=== PATIENT | male | born 1945 | race Caucasian/White ===

== ENCOUNTER 2017-12-15 10:09 | Inpatient (IN) | payer MEDICARE, MEDICAID ==
[2017-12-15] MEDS ORDERED: Adenosine* 3 MG/ML VIAL ONE (10:41)
[2017-12-15 10:43] LABS: ABS Basophils 0.1 10^3/ul (0-0.2); ABS Eosinophils 0.1 10^3/ul (0-0.6); ABS Lymphocytes 1.1 10^3/ul (1.0-4.8); ABS Monocytes 0.7 10^3/ul (0-0.8); ABS Neutrophils 8.7 10^3/ul (1.5-7.7); ABS Nucleated RBC 0 10^3/ul; Eosinophil % 1.1 % (0-6); Hematocrit 22 % (42-52); Hemoglobin 7.2 g/dl (14.0-18.0); Lymphocyte % 10.3 % (25-47); Mean Corpuscular HGB Conc 33 g/dl (31-36); Mean Corpuscular Hemoglobin 28 pg (27-31); Mean Corpuscular Volume 85 fL (80-94); Mean Platelet Volume 9.5 um3 (7.4-10.4); Nucleated Red Blood Cells % 0.1; Platelet Count 314 10^3/ul (150-450); Red Blood Count 2.57 10^6/ul (4.0-5.4); Red Cell Distribution Width 15 % (10.5-15); White Blood Count 10.7 10^3/ul (3.5-10.8)
[2017-12-15 10:48] LABS: INR 1.08 (0.77-1.02)
[2017-12-15] MEDS ORDERED: NS 0.9% 1000 ML* 1,000 ML IV ONE ×2 (10:56→11:58)
[2017-12-15] MEDS ORDERED: Levofloxacin 750 MG IVPREMIX(* 750 MG/150 ML BAG IVPB ONE (10:56)
--- NOTE | 2017-12-15 10:58 | RAD ---
HISTORY: Shortness of breath COMPARISONS: None VIEWS: 1: frontal portable view of the chest at 10:41 AM. FINDINGS: LINES AND TUBES: None. CARDIOMEDIASTINAL SILHOUETTE: The cardiomediastinal silhouette is normal for portable technique. PLEURA: There is a small right pleural effusion versus chronic pleural thickening. LUNG PARENCHYMA: There is hyperinflation. There is volume loss of the right lung. ABDOMEN: The upper abdomen is clear. There is no subphrenic gas. BONES AND SOFT TISSUES: No bone or soft tissue abnormalities are noted. IMPRESSION: 1. VOLUME LOSS OF THE RIGHT LUNG WHICH MAY BE POSTSURGICAL. RECOMMEND COMPARISON TO PREVIOUS IMAGING IF AVAILABLE. 2. SMALL RIGHT PLEURAL EFFUSION VERSUS CHRONIC PLEURAL THICKENING.
[2017-12-15 11:08] LABS: EGFR Non-African American 47.3 (>60)
[2017-12-15] MEDS ORDERED: Diltiazem DRIP* 100 MG/100 ML ADDV.BAG IVPB ONE (12:40)
[2017-12-15] MEDS ORDERED: Diltiazem IV* 5 MG/ML 5 ML VIAL (for loading dose/IV Push) (25 MG) IV SLOW PU ONE (12:40)
[2017-12-15] MEDS ORDERED: Adenosine* 3 MG/ML VIAL IV PUSH ONE (12:43)
[2017-12-15] MEDS ORDERED: Pantoprazole IV* 40 MG IV ONE (12:57)
[2017-12-15] MEDS ORDERED: Ondansetron INJ* 2 MG/ML VIAL IV PRN (12:57)
[2017-12-15] MEDS ORDERED: Acetaminophen TAB* 325 MG PO PRN (12:57)
[2017-12-15] MEDS ORDERED: Pantoprazole IV* 80 MG in NS 0.9% 100 ML* 100 ML IVPB SCH (13:00)
[2017-12-15] MEDS ORDERED: Diltiazem IV VIAL* 125 MG/25 ML VIAL IV ONE (13:00)
[2017-12-15] MEDS ORDERED: Albuterol HFA INHALER* 8 gm MDI INH PRN (13:02)
[2017-12-15] MEDS ORDERED: Pantoprazole IV* 40 MG ONE (13:27)
[2017-12-15] MEDS ORDERED: NS 0.9% 1000 ML* 1,000 ML IV SCH (13:30)
--- NOTE | 2017-12-15 13:49 | CONSULT ---
Consult Consult: Consultation Note Critical Care Requesting Physician: Abraham Gibbs NP Reason for consult: GI hemorrhage Limitations in history/physical: none Date of consult: 12/15/2017 HPI: 72y M pmhx of HLD, HTN; presents to ER for 1 week of shortness of breath on exertion, cough+. No chest pain/dizziness/syncope. No abd pain/n/v. States he has been having dark stools+ 1-2 days only. No sick contacts. No recent travel. EMS brought patient to ER, found to be tachycardic 155, given adenosine and noted to be in afib/flutter underlying. RR 20, BP 100-110 systolic, sat 100 % on RA, tmax 97.3. Started on Cardizem infusion for rate control. Lab work demonstrated acute anemia of 7, previous 13 in July 2017. 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 He does not know of a lung disease he is diagnosed with and was told his heart is like a "sponge" and moving abnormal so he must be on blood thinners ( months back). He does take inhalers and has baseline shortness of breath all the time but this time shortness of breath worsened. He takes asa only, occassional motrin during the month for pain. Started on PPI infusion in ER. currently awake, feels okay. recieved IVF 2L in ER. in Aflutter 140s on cardizem infusion 5mg/hr. on D5w infusion. ED/floor Course: as above ROS: negative except for pertinent positives mentioned above. PMHx: HTN, HLD PSHx: none Family History: Cardiac disease Social History: Alcohol-stopped drinking 10-20 years back, Smoking-former smoker for 50+ years <1ppd, stopped 5-7 yrs back, Drug use-none; lives with . Allergies: Allergies Allergy/AdvReac Type Severity Reaction Status Date / Time No Known Allergies Allergy Mild See Comment Verified 12/15/17 10:23 Home Medications: Albuterol HFA INHALER* [Ventolin HFA Inhaler*] 2 puff INH Q6H PRN 12/15/17 [ History Confirmed 12/15/17] Albuterol/Ipratropium RESP(NF) [Combivent Respimat(NF)] 1 puff INH QID 12/15/17 [History Confirmed 12/15/17] Budesonide/Formote 160/4.5(NF) [Symbicort 160/4.5 (NF)] 2 puff INH BID 12/15/17 [History Confirmed 12/15/17] Diltiazem CD CAP* [Cardizem CD CAP*] 180 mg PO DAILY 12/15/17 [History Confirmed 12/15/17] Gemfibrozil TAB* [Lopid TAB*] 600 mg PO BID 12/15/17 [History Confirmed ] Tele: aflutter, tachycardic Vitals: Vital Signs Temp 98 F 12/15/17 14:03 Pulse 140 12/15/17 14:03 Resp 24 12/15/17 14:03 BP 106/70 12/15/17 14:03 Pulse Ox 100 12/15/17 14:03 Intake & Output 12/14/17 12/15/17 12/15/17 18:59 06:59 18:59 Intake Total 2150 Balance 2150 Weight 190 lb Intake: IV Fluids 2150 O2/Vent: NC 2L Infusions: d5w 125cc/hour, protonix 8mg/hr Current Medications: Acetaminophen (Tylenol Tab*) 650 mg PO Q4H PRN PRN Reason: FEVER/PAIN Albuterol (Ventolin 2.5 Mg/3 Ml Neb.Aracelis*) 2.5 mg INH Q2H PRN PRN Reason: SOB/WHEEZING Albuterol (Ventolin Hfa Inhaler*) 2 puff INH Q6H PRN PRN Reason: SOB/WHEEZING Albuterol/Ipratropium (Duoneb (Albuterol 2.5 Mg/Ipratropium 0.5 Mg)) 1 neb INH Q6H JEANNE Diltiazem HCl (Cardizem Iv Advan*) 100 mg in 100 mls @ 5 mls/hr IVPB ED ONCE ONE PRN Reason: 5 MG/HR Stop: 12/16/17 08:39 Last Admin: 12/15/17 13:18 Dose: 5 mls/hr Pantoprazole Sodium 80 mg/ (Sodium Chloride) 100 mls @ 10 mls/hr IVPB Q10H JEANNE Last Admin: 04/20/18 14:15 Dose: 10 mls/hr Diltiazem HCl (Cardizem Iv Advan*) 100 mg in 100 mls @ 5 mls/hr IVPB .PER PARAMETERS JEANNE; 5 MG/HR PRN Reason: Protocol Dextrose (D5w 1000 Ml Bag*) 1,000 mls @ 125 mls/hr IV PER RATE JEANNE Last Admin: 12/15/17 14:06 Dose: 125 mls/hr Mometasone Furoate/Formoterol Fumar (Dulera 200/5 Mdi*) 2 puff INH BID JEANNE PRN Reason: Protocol Ondansetron HCl (Zofran Inj*) 4 mg IV Q6H PRN PRN Reason: NAUSEA Physical Exam: General: awake, alert, no distress, no diaphoresis Head: normocephalic, atraumatic HEENT: +Pallor, no icterus, DRY mucous membranes Neck: soft, supple, no jvd, no stridor CVS: tachycardic, regular, systolic murmur 3/5 in aortic area Resp: bilateral air entry, no rhales, no wheeze, no rhonchi, no acc muscle use Abdomen: soft, nontender, nondistended, bowel sounds present Ext: pulses+, warm, no edema Skin: intact, chronic changes in LE, dry+ Neuro: awake, alert, orientedx3, moving all extremities, no gross focal deficit Labs: Laboratory Results - last 24 hr 12/15/17 12/15/17 12/15/17 10:30 10:30 10:30 WBC 10.7 RBC 2.57 L Hgb 7.2 L Hct 22 L MCV 85 MCH 28 MCHC 33 RDW 15 Plt Count 314 MPV 9.5 Neut % (Auto) 81.4 Lymph % (Auto) 10.3 L [place] % (Auto) 6.7 Eos % (Auto) 1.1 Baso % (Auto) 0.5 Absolute Neuts (auto) 8.7 H Absolute Lymphs (auto) 1.1 Absolute Monos (auto) 0.7 Absolute Eos (auto) 0.1 Absolute Basos (auto) 0.1 Absolute Nucleated RBC 0 Nucleated RBC % 0.1 INR (Anticoag Therapy) 1.08 H Sodium 145 Potassium 4.2 Chloride 112 H Carbon Dioxide 24 Anion Gap 9 BUN 48 H Creatinine 1.46 H Est GFR ( Amer) 60.9 Est GFR (Non-Af Amer) 47.3 BUN/Creatinine Ratio 32.9 H Glucose 120 H Lactic Acid Calcium 8.7 Total Bilirubin 0.70 AST 16 ALT 10 Alkaline Phosphatase 33 L Troponin I 0.03 C-Reactive Protein 49.45 H B-Natriuretic Peptide Total Protein 6.0 L Albumin 2.9 L Globulin 3.1 Albumin/Globulin Ratio 0.9 L Blood Type Antibody Screen Crossmatch 12/15/17 12/15/17 12/15/17 10:30 10:30 10:30 WBC RBC Hgb Hct MCV MCH MCHC RDW Plt Count MPV Neut % (Auto) Lymph % (Auto) [place] % (Auto) Eos % (Auto) Baso % (Auto) Absolute Neuts (auto) Absolute Lymphs (auto) Absolute Monos (auto) Absolute Eos (auto) Absolute Basos (auto) Absolute Nucleated RBC Nucleated RBC % INR (Anticoag Therapy) Sodium Potassium Chloride Carbon Dioxide Anion Gap BUN Creatinine Est GFR ( Amer) Est GFR (Non-Af Amer) BUN/Creatinine Ratio Glucose Lactic Acid 1.9 Calcium Total Bilirubin AST ALT Alkaline Phosphatase Troponin I C-Reactive Protein B-Natriuretic Peptide 106 H Total Protein Albumin Globulin Albumin/Globulin Ratio Blood Type A Positive Antibody Screen Negative Crossmatch See Detail Imaging: cxr 12/15 - no clear infiltrate, hyperinflated? smaller right lung volume Assessment: 72y M pmhx of HLD, HTN; presents to ER for 1 week of shortness of breath on exertion, cough+. Chronically has SOB otherwise. Stopped taking Xarelto AC months back, takes ASA only. Noted dark/black stools for 1-2 days only. In ER, tachycardic/aflutter and acute anemia. -Upper GI hemorrhage -Acute blood loss anemia -Atrial flutter with rapid ventricular rate -Respiratory distress -Hypernatremia -SHY Plan: Neuro- stable. CVS- Aflutter, tachycardic; incr cardizem to 10mg/hr, will likely rebolus cardizem again. Will bridge to PO cardizem once more controlled. No AC due to ongoing GI hemorrhage. Trend h/H. To be transfused 2 PRBC today. INR okay, plt okay. hold asa further. Obtain TTE to eval systolic murmur and for LV function/ valve abnormality/resp distress. Euvolemic, no edema. Resp- on 2L NC, no distress at rest. Likely combination of diastolic dysfunction from rapid flutter + acute anemia + valvular heart disease? + chronic obst disease? No lasix indicated at this time. No wheezing. Past smoker , so may have some component of obstructive lung disease also contributing to this. Bronchodilators PRN. CXR clear of infiltrate. ID- afebrile. wbc okay. no abx indicated, no infiltrate on cxr. no clinical infection noted. GI- suspect upper GI bleed, more recent. Has been off AC. hold ASA. PRBC transfusion. PPI infusion. GI consult called for possible EGD. NPO now. No nsaids Renal- Cr elevated, hypernatremia. clinically dry. s/p 2L NS in ER. on d5w now, dec to 75cc/hour. Making urine. no acidosis, K normal. No ford. Heme- acute blood loss anemia, suspect GI etiology. PRBC 2 units now. INR 1, no clear coagulopathy, patient states he is off AC for months, confirmed no Rx refill either. Plt count 300+, on asa daily. Keep hg >8 given underlying cardiac and pulmonary disease and symptomatic under <8. Endo- fingerstick as needed. check hba1c, tsh. Musculsk- bedrest Wounds- none Nutrition- NPO DVT prophylaxis: SCDs, no chemical proph GI prophylaxis: PPI infusion Central Line: no Arterial Line: no Ford Cathetor: no Disposition: ICU Code Status: full code Total Critical Care time is 45 minutes, excluding procedures/teaching Dennis Koroma MD Filter Plant Supervisor (Electronically Signed)
[2017-12-15] MEDS ORDERED: D5W 1000 ML BAG* 1,000 ML IV SCH (14:00)
[2017-12-15] MEDS ORDERED: Diltiazem DRIP* 100 MG/100 ML ADDV.BAG IVPB SCH (14:00)
--- NOTE | 2017-12-15 15:30 | HP ---
CC: Gerardo Garza; Dr. Vega* HISTORY AND PHYSICAL: DATE OF ADMISSION: 12/15/17 PRIMARY CARE PROVIDER: Gerardo Garza ATTENDING PHYSICIAN WHILE IN THE HOSPITAL: Josiah Hale MD* (report dictated by Vera Gibbs NP). CHIEF COMPLAINT: 1. Shortness of breath. 2. Not feeling well. HISTORY OF PRESENT ILLNESS: Mr. Burrows is a 72-year-old male patient. He does carry a history of AFib, COPD, hypertension and hyperlipidemia. He comes into our ER today. He says the last 3 to 4 days, he has had progressive worsening shortness of breath, dyspnea on exertion, feeling fatigued, feeling run down. He has had a cough that has been nonproductive. He has had no fever that he knows of. He did say that he had tarry stool approximately 3 to 4 days ago as well. He denied any vomiting of coffee-ground emesis. He denied any abdominal discomfort. Denies any chest pain. He says that he always sleeps upright. He denied having any chest pain. He did state that he felt like his heart was racing. He is concerned because his breathing was not getting any better, so he decided to come into the emergency department today to be evaluated. While here, it was noted that his heart rate was in the 150. He was given adenosine and he appeared to be in A- flutter. In discussion with him, he does state that he started taking aspirin the last couple of days. He says he takes ibuprofen or Motrin, maybe 1 to 3 times a month and he says he was at one point on a blood thinner, he does not remember the name of it and he says he believes he stopped it 4 to 5 months ago; however in discussion with his PCP, it is unclear if this was the case or not. There was concern because of the fact that his H and H had dropped significantly since his last H and H and we were asked to evaluate for admission. PAST MEDICAL HISTORY: Significant for: 1. AFib. 2. COPD. 3. Hypertension. 4. Hyperlipidemia. PAST SURGICAL HISTORY: Denied. HOME MEDICATIONS: Include, 1. Symbicort 2 puffs inhale b.i.d. 2. Combivent 1 puff inhale four times a day. 3. Ventolin 2 puffs inhale every 6 hours as needed. 4. Lopid 600 mg p.o. twice a day. 5. Cardizem CD 180 mg p.o. daily. ALLERGIES: No known drug allergies. FAMILY HISTORY: Mother had a history of CVA and diabetes. Father's history is unknown. SOCIAL HISTORY: He was a former smoker, he quit 2 to 3 years ago. He does not drink alcohol, is a former drinker though. He lives with his , surrogate decision maker is his . REVIEW OF SYSTEMS: There is no documented fever. He denied any significant weight change. There is no double vision. He denies having any ear discharge. He denies having any rhinorrhea. There was no sore throat. No thyroid enlargement. Denies having any chest pain. There is no orthopnea. He does admit to dyspnea on exertion. There is no chest pain. There is no abdominal pain. He denies any nausea or vomiting. No diarrhea. No dysuria. No frequency. No seizure. No loss of consciousness. No pruritus and no skin ulcerations. Review of 14 systems completed, all others negative. PHYSICAL EXAMINATION GENERAL: Mr. Burrows is a 72-year-old male patient. He appears to be chronically ill appearing, he is sitting in the ED stretcher. He does not appear to be in any acute distress. VITAL SIGNS: Blood pressure 122/79, pulse 150, respirations were 20, O2 sat 96% , temperature 97.3. HEENT: Head: Atraumatic, normocephalic. Eyes: EOMs are intact. Sclerae anicteric, it was pale. Throat: Oral mucosa appears to be dry. No oropharyngeal erythema. NECK: Supple. LUNGS: Clear to auscultation bilaterally. No wheezes, rales or rhonchi. CV: Heart sounds S1, S2. He is in a regular rate and rhythm. No murmurs, rubs or gallops. ABDOMEN: Soft, flat and nontender. Bowel sounds present. EXTREMITIES: Pulses were 2+ throughout. He is moving all 4 extremities with 5/ 5 strength. NEUROLOGIC: He is awake. He is alert. He is oriented x3. Speech is clear. Tongue is midline. Cork Insulation Setter are equal. He had no gross focal deficits. His skin is intact. DIAGNOSTIC STUDIES/LAB DATA: WBC 10.7, RBC 2.57, hemoglobin 7.2, hematocrit 22. His last hemoglobin was 13.4, platelet count was 314. INR was 1.08. Sodium 145, potassium 4.2, chloride 112, bicarb 24, BUN 48, creatinine 1.46, glucose 120, lactic 1.9, calcium 8.7. Total bili 0.7, AST 16, ALT 10, alk phos 33. Troponin 0.03. CRP of 49. Albumin of 2.9. Urine pending. Chest x-ray shows small volume loss of right lung which may be postsurgical, recommend comparison if previous imaging is available. Small right pleural effusion versus chronic pleural thickening. EKG appears to be a 2:1 A-flutter with a PVC, left bundle-branch block, I do not have a previous EKG for comparison, rate of 150. Again, he did get adenosine when we slowed him down. It did appear that he had an A-flutter. Old medical records were reviewed. BNP 106. Again, EKG showed what appeared to be 2:1 A-flutter, rate of 150, old medical records reviewed. ASSESSMENT AND PLAN: Mr. Burrows is a 72-year-old male patient with complex medical history, coming into the ED today with complaints of shortness of breath , not feeling well, fatigued. On evaluation, he was found to have a significant drop in his hemoglobin, about 6 point and also in addition, on rectal exam found to have tarry stools. He will be admitted under inpatient status for: 1. Gastrointestinal bleed. I suspect he has a gastrointestinal bleed, it is unclear when he last took Xarelto. He says he has not taken it in 4 to 5 months per the direction of his PCP, although there is no documentation of that according to the staff at his office. He was just seen on of this month at Dr. Garza's office. We are going to try to get those records. I am going to put the patient on PPI drip, place him in the ICU, frequent H and Hs have been ordered. I have asked for 2 IV on this patient. In addition to this, we are going to give him 2 units of blood and I did touch base with GI who will be evaluating him today. Blood pressure is stable but I would like to get a better rate control. I think it is probably the rates being driven by his anemia, so I think with 2 units of blood, hopefully we can get that better controlled and then we can stabilize him a little bit better for possible endoscopy. Again GI is following him, he will be placed on clear liquid diet. 2. History of atrial fibrillation/atrial flutter. He is on diltiazem. He has been on a blood thinner at one point. We are going to get record from his primary. I am going to put him on a diltiazem drip in the ICU to try to get the rate better controlled and we will continue to monitor. 3. Chronic obstructive pulmonary disease. Continue his nebs as prescribed. 4. Hypertension, again at this point, he will be on diltiazem drip. 5. Hyperlipidemia. I am holding his Lopid until he stabilized, we can restart this at a later point. 6. Deep venous thrombosis prophylaxis, SCDs have been ordered. 7. Code status, full code. 8. Fluids, electrolytes and nutrition. Clear liquid diet. TIME SPENT: Time spent on admission 60 minutes, greater than half the time spent [id number] with the patient obtaining my history and physical, other half of the time spent going over the plan of care with the patient and implementing plan of care. I did discuss the plan of care with my attending, Dr. Hale, he is in agreement. VERA GIBBS NP [id number]/CPS #: [id number] MTDD
--- NOTE | 2017-12-15 16:20 | ED ---
James Leyva Jennifer, scribed for Jorgito Sanchez MD on 12/15/17 at 1059 . Shortness of Breath - HPI Summary HPI Summary: The patient is a 72 year old male who presents with shortness of breath and cough for one week that worsened today. EMS found the patient wheezing and tachycardic. The patient was given a nebulizer treatment, which improved his breathing - History of Current Complaint Chief Complaint: EDShortnessOfBreath Time Seen by Provider: 12/15/17 10:13 Hx Obtained From: Patient, EMS Onset/Duration: Sudden Onset, Lasting Weeks - 1 week, Worse Since - today Timing: Constant Current Severity: Mild Aggrevating Factors: Nothing Alleviating Factors: Other - Nebulizer Associated Signs & Symptoms: Cough (Nonproductive), Wheezing - Allergy/Home Medications Allergies/Adverse Reactions: Allergies Allergy/AdvReac Type Severity Reaction Status Date / Time No Known Allergies Allergy Mild See Comment Verified 12/15/17 10:23 Home Medications: Home Medications Albuterol HFA INHALER* [Ventolin HFA Inhaler*] 2 puff INH Q6H PRN 12/15/17 [ History Confirmed 12/15/17] Albuterol/Ipratropium RESP(NF) [Combivent Respimat(NF)] 1 puff INH QID 12/15/17 [History Confirmed 12/15/17] Budesonide/Formote 160/4.5(NF) [Symbicort 160/4.5 (NF)] 2 puff INH BID 12/15/17 [History Confirmed 12/15/17] Diltiazem CD CAP* [Cardizem CD CAP*] 180 mg PO DAILY 12/15/17 [History Confirmed 12/15/17] Gemfibrozil TAB* [Lopid TAB*] 600 mg PO BID 12/15/17 [History Confirmed ] PMH/Surg Hx/FS Hx/Imm Hx Endocrine/Hematology History: Denies: Hx Diabetes Cardiovascular History: Reports: Hx Hypercholesterolemia, Hx Hypertension Infectious Disease History: No Infectious Disease History: Denies: Traveled Outside the [place] in Last 30 Days - Family History Known Family History: Positive: Cardiac Disease, Hypertension, Other - Hypercholesterolemia - Social History Alcohol Use: None Substance Use Type: Reports: None Smoking Status (MU): Former Smoker Review of Systems Positive: Other - Tachycardic Positive: Shortness Of Breath, Cough, Other - Wheezing All Other Systems Reviewed And Are Negative: Yes Physical Exam - Summary Physical Exam Summary: Appearance: The patient is well-nourished in no acute distress and in no acute pain. Skin: The skin is warm and dry and skin color reflects adequate perfusion. HEENT: The head is normocephalic and atraumatic. The pupils are equal and reactive. The conjunctivae are clear and without drainage. Nares are patent and without drainage. Mouth reveals moist mucous membranes and the throat is without erythema and exudate. The external ears are intact. The ear canals are patent and without drainage. The tympanic membranes are intact. Neck: the neck is supple with full range of motion and non-tender. There are no carotid bruits. There is JVD and slight HJR. Respiratory: Chest is non-tender. Lungs are clear to auscultation and breath sounds are symmetrical and equal. Cardiovascular: Heart is tachycardic and irregular rhythm. There is no murmur or rub auscultated. There is no peripheral edema and pulses are symmetrical and equal. Abdomen: The abdomen is soft and non-tender. There are normal bowel sounds heard in all four quadrants and there is no organomegaly palpated. Musculoskeletal: There is no back tenderness noted. Extremities are non-tender with full range of motion. There is good capillary refill. There is no peripheral edema or calf tenderness elicited. Neurological: Patient is alert and oriented to person, place and time. The patient has symmetrical motor strength in all four extremities. Cranial nerves are grossly intact. Deep tendon reflexes are symmetrical and equal in all four extremities. Psychiatric: The patient has an appropriate affect and does not exhibit any anxiety or depression. Triage Information Reviewed: Yes Vital Signs On Initial Exam: Initial Vitals Temp Pulse Resp BP Pulse Ox 97.3 F 155 20 107/77 100 12/15/17 10:10 12/15/17 10:10 12/15/17 10:10 12/15/17 10:10 12/15/17 10:10 Vital Signs Reviewed: Yes Diagnostics - Vital Signs Vital Signs Temp Pulse Resp BP Pulse Ox 12/15/17 10:10 97.3 F 155 20 107/77 100 - Laboratory Lab Results: Lab Results 12/15/17 12/15/17 Range/Units 10:30 10:30 WBC 10.7 (3.5-10.8) 10^3/ul RBC 2.57 L (4.0-5.4) 10^6/ul Hgb 7.2 L (14.0-18.0) g/dl Hct 22 L (42-52) % MCV 85 (80-94) fL MCH 28 (27-31) pg MCHC 33 (31-36) g/dl RDW 15 (10.5-15) % Plt Count 314 (150-450) 10^3/ul MPV 9.5 (7.4-10.4) um3 Neut % (Auto) 81.4 (38-83) % Lymph % (Auto) 10.3 L (25-47) % [place] % (Auto) 6.7 (0-7) % Eos % (Auto) 1.1 (0-6) % Baso % (Auto) 0.5 (0-2) % Absolute Neuts (auto) 8.7 H (1.5-7.7) 10^3/ul Absolute Lymphs (auto) 1.1 (1.0-4.8) 10^3/ul Absolute Monos (auto) 0.7 (0-0.8) 10^3/ul Absolute Eos (auto) 0.1 (0-0.6) 10^3/ul Absolute Basos (auto) 0.1 (0-0.2) 10^3/ul Absolute Nucleated RBC 0 10^3/ul Nucleated RBC % 0.1 INR (Anticoag Therapy) 1.08 H (0.77-1.02) Result Diagrams: 12/15/17 10:30 12/15/17 10:30 Lab Statement: Any lab studies that have been ordered have been reviewed, and results considered in the medical decision making process. - Radiology CXR Xray Interpretation: Positive (See Comments) - 1. VOLUME LOSS OF THE RIGHT LUNG WHICH MAY BE POSTSURGICAL. RECOMMEND COMPARISON TO PREVIOUS IMAGING IF AVAILABLE. 2. SMALL RIGHT PLEURAL EFFUSION VERSUS CHRONIC PLEURAL THICKENING. Dr. Sanchez has reviewed this report. Radiology Interpretation Completed By: Radiologist - EKG 10:24 EKG Interpretation: Sinus tachycardic with PVCs vs. atrial flutter with PVCs Course/Dx - Course Course Of Treatment: Mr Brurows presented by EMS with the C/O SOB. He was noted to be tachycardic when they picked him up and had some wheezes. They gave him a neb enroute and he felt much better on arrival here although his HR was still about 150 with fairly frequent ventricular ectopy. His lungs were clear then and he had no JVD although there was a touch of HJR. A CXR showed a possible infiltrate and flat diaphragms without evidence for CHF so we gave him IV NS and Levaquin. This had no effect on his HR although his labs showed evidence of dehydration as well as a new significant anemia. Therefore,, he was given adenosine which revealed that he was in A-flutter with a 2:1 block. He was placed on a cardizeem drip and is being admitted to the ICU. - Diagnoses Provider Diagnoses: Atrial flutter with rapid ventricular response, Severe anemia, Dehydration - Physician Notifications Discussed Care of Patient With: Abraham Gibbs Time Discussed With Above Provider: 12:46 Instructed by Provider To: Admit As Inpatient - Critical Care Time Critical Care Time: 30-74 min - CCT is EXCLUSIVE of separately billable procedures Discharge - Sign-Out/Discharge Documenting (check all that apply): Discharge - Discharge Plan Condition: Good Disposition: ADMITTED TO [facility] - Billing Disposition and Condition Condition: GOOD Disposition: [facility] [place] The documentation as recorded by the James turner Jennifer accurately reflects the service I personally performed and the decisions made by me, Jorgito Sanchez MD.
[2017-12-15 16:22] LABS: Urine Appearance Clear; Urine Blood Negative (Negative); Urine Color Yellow; Urine Ketones Negative (Negative); Urine Protein Negative (Negative); Urine Specific Gravity 1.013 (1.010-1.030); Urine Urobilinogen Positive (Negative)
[2017-12-15] MEDS ORDERED: Albuterol/Ipratropium RESP(NF) MDI (Combivent Respimat) INH SCH (17:00)
[2017-12-15] MEDS: D5W 1000 ML BAG* 1,000 ML IV SCH (17:06)
[2017-12-15] MEDS: Pantoprazole IV* 80 MG in NS 0.9% 250 ML* 250 ML IVPB SCH (17:06)
--- NOTE | 2017-12-15 17:45 | ECHO ---
Patient: OLGA JAUREGUI Rec#: [id number] : 1945 Date: 12/15/2017 Age: 72y Height: 185.42 cm / 73.0 in Weight: 86.18 kg / 189.9 lbs Sex: M BSA: 2.11 Room#: [facility] Admit Date#: 12/15/2017 Type: Inpatient Referring: Dennis Koroma Reading: Jorge Newman MD Corporate Risk Analyst: Alondra Aguilera RDCS Transthoracic Echocardiogram Indication: A-flutter BP: 118/89 HR: 135 Rhythm: A-Flutter Findings History: Former smoker, current GI bleed. Technical Comments: The study is technically difficult. The study is technically limited due to poor acoustic windows. The study was technically limited due to the patient's inability to lay in the left lateral decubitus position. Completed at 1730. Left Ventricle: The left ventricle is not well visualized. The left ventricular chamber size is decreased. Moderate concentric left ventricular hypertrophy is observed. There is normal left ventricular systolic function.Unable to comment on regional wall motion. The estimated ejection fraction is 55-60%. The assessment of diastolic function is non-diagnostic. Left Atrium: The left atrium is moderate to severely dilated. Right Ventricle: The right ventricle is not well visualized. Right Atrium: The right atrium is moderately dilated. Aortic Valve: The aortic valve structure is not well visualized. There is no evidence of aortic regurgitation. There is no evidence of aortic stenosis. Mitral Valve: The mitral valve structure is not well visualized. The mitral valve leaflets are mildly thickened. There is no evidence of mitral regurgitation. Tricuspid Valve: The tricuspid valve structure is not well visualized. There is no evidence of tricuspid valve regurgitation. Pulmonic Valve: The pulmonic valve structure is not well visualized. There is no evidence of pulmonic regurgitation. There is no pulmonic stenosis. Pericardium: There is no significant pericardial effusion. Aorta: The ascending aorta is not well visualized. The aortic arch is not well visualized. The aortic root is not well visualized. Pulmonary Artery: The main pulmonary artery is not well visualized. Venous: The inferior vena cava is dilated. There is an approximate 50% respiratory change in the inferior vena cava dimension. Conclusions The study is technically very difficult. There is normal left ventricular systolic function. The estimated ejection fraction is 55-60%. The left ventricular chamber size is decreased. Moderate concentric left ventricular hypertrophy is observed. The left atrium is moderate to severely dilated. The right atrium is moderately dilated. Functionally benign heart valves on limited imaging. There is no prior echocardiogram available to compare with at this time. Measurements Name Value Normal Range RVIDd (AP) 2D 3.1 cm (0.9 - 2.6) RAd ISD 4CH 5.4 cm (3.4 - 4.9) RA (A4C)W 4.5 cm (2.9 - 4.6) IVSd (2D) 1.7 cm (0.6 - 1) LVPWd (2D) 1.8 cm (0.6 - 1) LVIDd (2D) 2.7 cm (3.6 - 5.4) LVIDs (2D) 1.9 cm - LV FS (2D) 29 % (25 - 45) Aortic Annulus 2.2 cm (1.4 - 2.6) Name Value Normal Range LA ESV SP 4CH (A/L) 81 ml - LA ESV SP 2CH (A/L) 124 ml - LA ESV BP (A/L) 103 ml - LA ESV BP (A/L) index 49 ml/m2 - LA ESV SP 4CH (MOD) 76 ml - LA ESV SP 2CH (MOD) 116 ml - Name Value Normal Range AV Vmax 2 m/sec - AV VTI 29.98 cm - AV peak gradient 16.59 mmHg - AV mean gradient 8.54 mmHg - LVOT Vmax 0.85 m/sec - LVOT VTI 15.64 cm - LVOT peak gradient 2.94 mmHg - LVOT mean gradient 1.65 mmHg - Name Value Normal Range IVC diameter 2.32 cm - Name Value Normal Range PV Vmax 1.9 m/sec -
--- NOTE | 2017-12-15 18:38 | CONS ---
GASTROENTEROLOGY CONSULTATION: DATE OF CONSULT: 12/15/17 PRIMARY CARE PHYSICIAN: Gerardo Garza. HISTORY OF PRESENT ILLNESS: Thank you for asking me to see Mr. Burrows. As you know, he is a 72-year -old male who presented to the emergency room today with progressive shortness of breath and fatigue. Apparently, he has had cough. The patient states that he did have a black stool 3 to 4 days ago. He does take aspirin daily. He denies any nausea, vomiting, or hematemesis. There has been no brigh t red blood per rectum. He does take occasional ibuprofen. The patient is noted in the emergency ro om to have hematocrit of 22. He is also in rapid Aflutter with the heart rate in the 150 to 160 rang e. The patient has been admitted to the intensive care unit and placed on a Cardizem and IV pantopra zole drip. The patient is receiving 2 units of packed red blood cells, currently on his first unit. His heart rate remains in the greater than 130 range. The patient denies any history of ulcer disea se. He has had no abdominal pain. PAST MEDICAL HISTORY: Significant for: 1. Atrial fibrillation. 2. Hypertension. 3. Hyperlipidemia. 4. COPD. MEDICATIONS AT HOME: Include: 1. Symbicort. 2. Combivent. 3. Ventolin. 4. Lopid. 5. Cardizem. ALLERGIES: No known drug allergies. FAMILY HISTORY: Noncontributory. SOCIAL HISTORY: The patient quit smoking a few years ago. No alcohol abuse. He is . REVIEW OF SYSTEMS: A 10-point review of systems is performed and is otherwise negative. PHYSICAL EXAM: Mr. Burrows is a 72-year-old male who appears in no distress. Heart rate is 135, bloo d pressure 99/75, O2 sat of 98% on 2 L. HEENT: There is no scleral icterus. Heart: Irregular rate and rhythm. Lungs: Scattered rhonchi with minimally decreased breath sounds. Abdomen: Soft. The re is no tenderness. Bowel sounds are present. There is no distention. Extremities: Without cyanos is, clubbing, or edema. Neuro: Grossly intact. Alert and oriented x3. PERTINENT LABORATORY STUDIES: Include a white blood count of 10.7, hematocrit 22; currently receivin g 1 unit packed red blood cells. INR is 1. Liver function tests are normal. BNP was 106. Albumin is 2.9. C-reactive protein is 49. IMPRESSION: Mr. Burrows presents with likely upper gastrointestinal bleed, which I suspect happened 3 to 4 days ago. He has not had any signs of active bleeding here. He did have a stool sample submit andrea that was guaiac positive, but there has been no melena. He is currently on an IV pantoprazole dr mccloud and IV Cardizem with attempt to get his rate under control with blood transfusions and IV Cardizem . Case has been discussed with Dr. Koroma, the federal agent. The patient is on a clear liquid diet. e patient will receive his 2 units of packed red blood cells and have followup CBC 2 hours later. If the patient shows any further signs of further bleeding, Dr. Garfield Welch is aware of the patient a nd is on-call this weekend. [id number]/[facility] #: [id number]
[2017-12-15] MEDS: Albuterol/Ipratropium NEB.SOL* Albuterol 2.5 MG/Ipratropium 0.5 MG 3 ML INH SCH ×2 (20:16→20:32)
[2017-12-15] MEDS: Mometasone/Formoter 200/5 MDI INH SCH (20:18)
[2017-12-15 22:10] LABS: Hematocrit 25 % (42-52); Hemoglobin 8.1 g/dl (14.0-18.0)
[2017-12-16] MEDS: Albuterol/Ipratropium NEB.SOL* Albuterol 2.5 MG/Ipratropium 0.5 MG 3 ML INH SCH ×2 (01:14→09:11)
[2017-12-16] MEDS ORDERED: Metoprolol Tartrate IV* 1 MG/ML 5 ML VIAL IV PRN (02:35)
[2017-12-16] MEDS ORDERED: Metoprolol Tartrate IV* 1 MG/ML 5 ML VIAL ONE (02:36)
[2017-12-16] MEDS: Pantoprazole IV* 80 MG in NS 0.9% 250 ML* 250 ML IVPB SCH ×2 (02:45→14:12)
[2017-12-16] MEDS: D5W 1000 ML BAG* 1,000 ML IV SCH (04:50)
[2017-12-16 05:43] LABS: Hematocrit 24 % (42-52); Hemoglobin 8.2 g/dl (14.0-18.0); Mean Corpuscular HGB Conc 35 g/dl (31-36); Mean Corpuscular Hemoglobin 30 pg (27-31); Mean Corpuscular Volume 87 fL (80-94); Mean Platelet Volume 9.4 um3 (7.4-10.4); Platelet Count 259 10^3/ul (150-450); Red Blood Count 2.73 10^6/ul (4.0-5.4); Red Cell Distribution Width 15 % (10.5-15); White Blood Count 11.8 10^3/ul (3.5-10.8)
[2017-12-16 05:54] LABS: EGFR Non-African American 61.1 (>60)
[2017-12-16 05:56] LABS: INR 1.14 (0.77-1.02)
[2017-12-16] MEDS: Diltiazem DRIP* 100 MG/100 ML ADDV.BAG IVPB SCH ×2 (06:26→14:12)
[2017-12-16] MEDS: Mometasone/Formoter 200/5 MDI INH SCH ×2 (09:11→19:50)
--- NOTE | 2017-12-16 11:16 | PN ---
Progress Note - Progress Note Date of Service: 12/16/17 Note: Progress Note - Critical Care 24 hour events: -no sob/cp overnight -no bowel movements noted -s/p 2 prbc -remains on cardizem 15mg/hr, HR improved, tachy low 100s -no resp distress, feels better Tele: aflutter, tachycardic Vitals: Vital Signs Temp 98.9 F 12/16/17 07:25 Pulse 99 12/16/17 11:00 Resp 19 12/16/17 11:00 BP 126/78 12/16/17 11:00 Pulse Ox 94 12/16/17 11:00 Intake & Output 12/15/17 12/16/17 12/16/17 18:59 06:59 18:59 Intake Total 2454 2121 Output Total 200 1025 125 Balance 2254 1096 -125 Weight 190 lb 186 lb 4.65 oz Intake: IV Fluids 2150 1234 D5W 796 NS W/PRBC TRANFUSE 438 Medicated IV 407 CARDIZEM 149 PROTONIX 258 Oral 480 Packed Cells 304 Output: Urine 200 1025 125 O2/Vent: NC 2L Infusions: d5w 75cc/hour, protonix 8mg/hr Current Medications: Acetaminophen (Tylenol Tab*) 650 mg PO Q4H PRN PRN Reason: FEVER/PAIN Albuterol (Ventolin 2.5 Mg/3 Ml Neb.Aracelis*) 2.5 mg INH Q2H PRN PRN Reason: SOB/WHEEZING Albuterol (Ventolin Hfa Inhaler*) 2 puff INH Q6H PRN PRN Reason: SOB/WHEEZING Diltiazem HCl (Cardizem Tab*) 60 mg PO Q6HR JEANNE Pantoprazole Sodium 80 mg/ (Sodium Chloride) 250 mls @ 25 mls/hr IVPB Q10H JEANNE PRN Reason: Protocol Last Admin: 12/16/17 02:45 Dose: 25 mls/hr Diltiazem HCl (Cardizem Iv Advan*) 100 mg in 100 mls @ 5 mls/hr IVPB Q20H JEANNE; 5 MG/HR PRN Reason: Protocol Last Admin: 12/16/17 06:26 Dose: 15 mls/hr Metoprolol Tartrate (Lopressor Iv*) 5 mg IV Q2H PRN PRN Reason: TACHYCARDIA Last Admin: 12/16/17 02:40 Dose: 5 mg Mometasone Furoate/Formoterol Fumar (Dulera 200/5 Mdi*) 2 puff INH BID JEANNE PRN Reason: Protocol Last Admin: 12/16/17 09:11 Dose: 2 puff Ondansetron HCl (Zofran Inj*) 4 mg IV Q6H PRN PRN Reason: NAUSEA Physical Exam: General: awake, alert, no distress, no diaphoresis Head: normocephalic, atraumatic HEENT: +Pallor, no icterus, moist mucous membranes Neck: soft, supple, no jvd, no stridor CVS: tachycardic, regular, systolic murmur in aortic area Resp: bilateral air entry, no rhales, no wheeze, no rhonchi, no acc muscle use Abdomen: soft, nontender, nondistended, bowel sounds present Ext: pulses+, warm, no edema Skin: intact, chronic changes in LE, dry+ Neuro: awake, alert, orientedx3, moving all extremities, no gross focal deficit Labs: Laboratory Results - last 24 hr 12/15/17 12/15/17 12/15/17 10:30 10:30 15:56 WBC RBC Hgb Hct MCV MCH MCHC RDW Plt Count MPV INR (Anticoag Therapy) APTT Sodium 145 Potassium 4.2 Chloride 112 H Carbon Dioxide 24 Anion Gap 9 BUN 48 H Creatinine 1.46 H Est GFR ( Amer) 60.9 Est GFR (Non-Af Amer) 47.3 BUN/Creatinine Ratio 32.9 H Glucose 120 H Calcium 8.7 Magnesium 1.6 L Total Bilirubin 0.70 Direct Bilirubin Indirect Bilirubin AST 16 ALT 10 Alkaline Phosphatase 33 L Troponin I 0.03 C-Reactive Protein 49.45 H Total Protein 6.0 L Albumin 2.9 L Globulin 3.1 Albumin/Globulin Ratio 0.9 L Urine Color Yellow Urine Appearance Clear Urine pH 6.0 Ur Specific [place] 1.013 Urine Protein Negative Urine Ketones Negative Urine Blood Negative Urine Nitrate Negative Urine Bilirubin Negative Urine Urobilinogen Positive A Ur Leukocyte Esterase Negative Ur Random Creatinine Ur Random Sodium Urine Glucose Negative Blood Type A Positive Antibody Screen Negative Crossmatch See Detail 12/15/17 12/15/17 12/16/17 15:56 22:01 05:25 WBC RBC Hgb 8.1 L Hct 25 L MCV MCH MCHC RDW Plt Count MPV INR (Anticoag Therapy) 1.14 H APTT 27.8 Sodium Potassium Chloride Carbon Dioxide Anion Gap BUN Creatinine Est GFR ( Amer) Est GFR (Non-Af Amer) BUN/Creatinine Ratio Glucose Calcium Magnesium Total Bilirubin Direct Bilirubin Indirect Bilirubin AST ALT Alkaline Phosphatase Troponin I C-Reactive Protein Total Protein Albumin Globulin Albumin/Globulin Ratio Urine Color Urine Appearance Urine pH Ur Specific [place] Urine Protein Urine Ketones Urine Blood Urine Nitrate Urine Bilirubin Urine Urobilinogen Ur Leukocyte Esterase Ur Random Creatinine 62.68 Ur Random Sodium 95 Urine Glucose Blood Type Antibody Screen Crossmatch 12/16/17 12/16/17 05:25 05:25 WBC 11.8 H RBC 2.73 L Hgb 8.2 L Hct 24 L MCV 87 MCH 30 MCHC 35 RDW 15 Plt Count 259 MPV 9.4 INR (Anticoag Therapy) APTT Sodium 138 L Potassium 4.0 Chloride 110 Carbon Dioxide 22 Anion Gap 6 BUN 31 H Creatinine 1.17 Est GFR ( Amer) 78.6 Est GFR (Non-Af Amer) 61.1 BUN/Creatinine Ratio 26.5 H Glucose 109 H Calcium 8.2 L Magnesium Total Bilirubin 0.80 Direct Bilirubin 0.40 H Indirect Bilirubin 0.4 AST 16 ALT 8 Alkaline Phosphatase 32 L Troponin I C-Reactive Protein Total Protein 5.5 L Albumin 2.7 L Globulin 2.8 Albumin/Globulin Ratio 1.0 Urine Color Urine Appearance Urine pH Ur Specific [place] Urine Protein Urine Ketones Urine Blood Urine Nitrate Urine Bilirubin Urine Urobilinogen Ur Leukocyte Esterase Ur Random Creatinine Ur Random Sodium Urine Glucose Blood Type Antibody Screen Crossmatch Imaging: cxr 12/15 - no clear infiltrate, hyperinflated? smaller right lung volume ECHO 12/15 - normal lv fxn, dilated LA; reviewed Assessment: 72y M pmhx of HLD, HTN; presents to ER for 1 week of shortness of breath on exertion, cough+. Chronically has SOB otherwise. Stopped taking Xarelto AC months back, takes ASA only. Noted dark/black stools for 1-2 days only. In ER, tachycardic/aflutter and acute anemia. -Upper GI hemorrhage -Acute blood loss anemia -Atrial flutter with rapid ventricular rate -Respiratory distress, improved -Hypernatremia -SHY Plan: Neuro- stable. CVS- Aflutter, tachycardic; start PO cardizem bridge, dec IV cardizem once better rate controlled. No AC due to ongoing GI hemorrhage. H/g 8.2 after 2 prbc , not adequate rise. BP stable. ECHO reviewed, normal LV, dilated LA only. Resp- on 2L NC, no distress at rest. Likely combination of diastolic dysfunction from rapid flutter + acute anemia + chronic obst disease? No diuretics indicated. No wheezing. Past smoker, so may have some component of obstructive lung disease also contributing to this. Bronchodilators PRN. ID- afebrile tmax 99.8. wbc 11. no abx indicated, no infiltrate on cxr GI- suspect upper GI bleed, FOBT+. Has been off AC. hold ASA. PRBC transfusion x2 given. Hg 8.2 now. check h/h q12. PPI infusion. Plan for EGD tomorrow. Can have full liquid/soft mechanical as per GI. Renal- SHY better; Cr down, Na improved. D/c d5w. PO intake, IVF as needed. K okay, no acidosis. Heme- acute blood loss anemia, s/p prbc, hg 8.2 now. no clear coagulopathy, patient states he is off AC for months. Hold AC. Keep hg >8 given underlying cardiac and pulmonary disease and symptomatic under <8. Endo- fingerstick as needed. check hba1c, tsh. Musculsk- bedrest Wounds- none Nutrition- liquid diet, soft mechanical. DVT prophylaxis: SCDs, no chemical proph GI prophylaxis: PPI infusion Central Line: no Arterial Line: no Sneed Cathetor: no Disposition: ICU Code Status: full code Dennis Koroma MD Air Director (Electronically Signed)
[2017-12-16] MEDS: Diltiazem TAB* 60 MG PO SCH ×3 (11:46→23:01)
[2017-12-16] MEDS: Albuterol 2.5 MG/3 ML NEB.SOL* (0.083%) INH PRN (22:19)
[2017-12-16] MEDS: diPHENhydraMINE PO* 25 MG PO PRN (23:01)
[2017-12-17] MEDS: Pantoprazole IV* 80 MG in NS 0.9% 250 ML* 250 ML IVPB SCH ×2 (00:28→12:19)
[2017-12-17] MEDS: Diltiazem TAB* 60 MG PO SCH ×4 (05:16→23:00)
[2017-12-17 05:45] LABS: Hematocrit 23 % (42-52); Hemoglobin 7.6 g/dl (14.0-18.0); Mean Corpuscular HGB Conc 33 g/dl (31-36); Mean Corpuscular Hemoglobin 29 pg (27-31); Mean Corpuscular Volume 87 fL (80-94); Mean Platelet Volume 9.4 um3 (7.4-10.4); Platelet Count 262 10^3/ul (150-450); Red Blood Count 2.64 10^6/ul (4.0-5.4); Red Cell Distribution Width 15 % (10.5-15); White Blood Count 13.2 10^3/ul (3.5-10.8)
[2017-12-17 05:58] LABS: EGFR Non-African American 61.7 (>60)
[2017-12-17] MEDS: Diltiazem DRIP* 100 MG/100 ML ADDV.BAG IVPB SCH (07:53)
[2017-12-17] MEDS ORDERED: fentaNYL* 50 MCG/ML 2 ML VIAL (100 MCG VIAL) ONE (08:18)
[2017-12-17] MEDS ORDERED: Midazolam* 1 MG/ML 5 ML VIAL (5 MG) ONE (08:19)
[2017-12-17] MEDS ORDERED: Midazolam* 1 MG/ML 10 ML VIAL (10 MG) ONE (08:19)
[2017-12-17] MEDS: Mometasone/Formoter 200/5 MDI INH SCH ×2 (09:52→20:09)
[2017-12-17] MEDS ORDERED: KCL 10 MEQ/50 ML IVPREMIX* 10 MEQ/50 ML BAG IV ONE ×2 (09:58→09:59)
[2017-12-17] MEDS ORDERED: Magnesium Sulfate 2 GM IV* 2 GM/50 ML BAG IVPB ONE (09:58)
[2017-12-17] MEDS ORDERED: Metoprolol Tartrate TAB* 25 MG PO SCH (10:00)
--- NOTE | 2017-12-17 10:23 | PN ---
Progress Note - Progress Note Date of Service: 12/17/17 Note: Progress Note - Critical Care 24 hour events: -no sob/cp overnight -dropped 1 gm hg today -s/p EGD this morning, found to have nonbleeding GE jxn ulcers Tele: aflutter, tachycardic 101 Vitals: tmax 100.3 Vital Signs Temp 99.7 F 12/17/17 07:41 Pulse 97 12/17/17 10:15 Resp 18 12/17/17 10:15 BP 114/69 12/17/17 10:15 Pulse Ox 96 12/17/17 10:15 Intake & Output 12/16/17 12/17/17 12/17/17 18:59 06:59 18:59 Intake Total 1433 476.5 Output Total 1175 800 375 Balance 258 -323.5 -375 Weight 194 lb 3.636 oz Intake: IV Fluids 437 D5W 437 Medicated IV 386 476.5 CARDIZEM 149 91.5 PROTONIX 237 385 Oral 610 Output: Urine 1175 800 375 Other: Estimated Void Small O2/Vent: NC 2L Infusions: protonix 8mg/hr, cardizem 5mg/hr Current Medications: Acetaminophen (Tylenol Tab*) 650 mg PO Q4H PRN PRN Reason: FEVER/PAIN Albuterol (Ventolin 2.5 Mg/3 Ml Neb.Aracelis*) 2.5 mg INH Q2H PRN PRN Reason: SOB/WHEEZING Last Admin: 12/16/17 22:19 Dose: 2.5 mg Albuterol (Ventolin Hfa Inhaler*) 2 puff INH Q6H PRN PRN Reason: SOB/WHEEZING Diltiazem HCl (Cardizem Tab*) 90 mg PO Q6HR JEANNE Diphenhydramine HCl (Benadryl Po*) 25 mg PO BEDTIME PRN PRN Reason: INSOMNIA Last Admin: 12/16/17 23:01 Dose: 25 mg Pantoprazole Sodium 80 mg/ (Sodium Chloride) 250 mls @ 25 mls/hr IVPB Q10H JEANNE PRN Reason: Protocol Last Admin: 12/17/17 00:28 Dose: 25 mls/hr Diltiazem HCl (Cardizem Iv Advan*) 100 mg in 100 mls @ 5 mls/hr IVPB Q20H JEANNE; 5 MG/HR PRN Reason: Protocol Last Admin: 12/17/17 07:53 Dose: 5 mls/hr Magnesium Sulfate (Magnesium Sulfate 2 Gm Iv*) 2 gm in 50 mls @ 50 mls/hr IVPB ONCE ONE Stop: 12/17/17 10:57 Potassium Chloride (Potassium Chloride 10 Meq/50 Ml Ivpremix*) 10 meq in 50 mls @ 50 mls/hr IV ONCE ONE Stop: 12/17/17 10:57 Potassium Chloride (Potassium Chloride 10 Meq/50 Ml Ivpremix*) 10 meq in 50 mls @ 50 mls/hr IV ONCE ONE Stop: 12/17/17 10:58 Metoprolol Tartrate (Lopressor Iv*) 5 mg IV Q2H PRN PRN Reason: TACHYCARDIA Last Admin: 12/16/17 02:40 Dose: 5 mg Metoprolol Tartrate (Lopressor Tab*) 12.5 mg PO Q12HR [facility] Mometasone Furoate/Formoterol Fumar (Dulera 200/5 Mdi*) 2 puff INH BID JEANNE PRN Reason: Protocol Last Admin: 12/17/17 09:52 Dose: Not Given Ondansetron HCl (Zofran Inj*) 4 mg IV Q6H PRN PRN Reason: NAUSEA Potassium Chloride (Klor Con Er Tab*) 20 meq PO BID [facility] Stop: 12/17/17 21:01 Physical Exam: General: awake, alert, no distress, no diaphoresis Head: normocephalic, atraumatic HEENT: +Pallor, no icterus, moist mucous membranes Neck: soft, supple, no jvd, no stridor CVS: tachycardic, regular, systolic murmur in aortic area Resp: bilateral air entry, no rhales, no wheeze, no rhonchi, no acc muscle use Abdomen: soft, nontender, nondistended, bowel sounds present Ext: pulses+, warm, no edema Skin: intact, chronic changes in LE, dry+ Neuro: awake, alert, orientedx3, moving all extremities, no gross focal deficit Labs: Laboratory Results - last 24 hr 12/17/17 12/17/17 05:21 05:21 WBC 13.2 H RBC 2.64 L Hgb 7.6 L Hct 23 L MCV 87 MCH 29 MCHC 33 RDW 15 Plt Count 262 MPV 9.4 Sodium 137 L Potassium 3.6 Chloride 110 Carbon Dioxide 22 Anion Gap 5 BUN 23 Creatinine 1.16 Est GFR ( Amer) 79.4 Est GFR (Non-Af Amer) 61.7 BUN/Creatinine Ratio 19.8 Glucose 97 Calcium 8.1 L Magnesium 1.4 L Imaging: cxr 12/15 - no clear infiltrate, hyperinflated? smaller right lung volume ECHO 12/15 - normal lv fxn, dilated LA; reviewed Assessment: 72y M pmhx of HLD, HTN; presents to ER for 1 week of shortness of breath on exertion, cough+. Chronically has SOB otherwise. Stopped taking Xarelto AC months back, takes ASA only. Noted dark/black stools for 1-2 days only. In ER, tachycardic/aflutter and acute anemia. -Upper GI hemorrhage 2/2 to GE ulcers -Acute blood loss anemia -Atrial flutter with rapid ventricular rate -Respiratory distress, improved -Hypernatremia -SHY Plan: Neuro- stable. CVS- Aflutter, tachycardic; increae PO cardizem 90mg q6h, start metoprolol 12.5mg po bid, dec IV cardizem and d/c later. No AC for now, patient has been off of it. need to have discussion wt fmaily about him being compliant and whether his PMD wants him on AC. Hg 7.6 today, monitor. ECHO reviewed, normal LV , dilated LA only. Resp- on 2L NC, no distress at rest. Likely combination of diastolic dysfunction from rapid flutter + acute anemia + chronic obst disease? No diuretics indicated. No wheezing. Past smoker, so may have some component of obstructive lung disease also contributing to this. Bronchodilators PRN. ID- tmax 100.3. wbc 13. sputum cx some pos for gram+. no resp distress. monitor. GI- GE ulcers+, nonbleeding. change to PO Protonix BID for 2 week, then daily PPI. Hold AC for now. s/p EGD 12/17 Renal- SHY better; Cr down Heme- acute blood loss anemia, hg 7.6. monitor. hemodyn stable. Hold AC. Keep hg >7-8 given underlying cardiac and pulmonary disease and symptomatic under <8. Endo- fingerstick as needed. check hba1c, tsh. Musculsk- bedrest Wounds- none Nutrition- soft mechanical. DVT prophylaxis: SCDs, no chemical proph GI prophylaxis: PPI infusion Central Line: no Arterial Line: no Sneed Cathetor: no Disposition: ICU, possible transfer to medical floor Code Status: full code Dennis Koroma MD [employer] System Administrator (Electronically Signed)
[2017-12-17] MEDS: Potassium Chlor TAB* 20 MEQ TAB.ER PO SCH ×2 (13:12→20:42)
--- NOTE | 2017-12-17 15:06 | PRO ---
DATE: 12/17/17 REFERRING PRACTITIONER: LUIS Garcia* PROCEDURE: Upper gastrointestinal endoscopy and CLOtest. INDICATION: This 72-year-old man came in to emergency room short of breath and weak. He reported having dark stools few days before. He had been on Xarelto that actually had been discontinued based on his being scared about television advisories, possibly a couple of months ago. He does have acid indigestion that is not readily revealed in the history, as he thinks he is just normal. He takes Tums, Qian-Justice, and baking soda for that. He has been transfused. His renal function is normal. ENDOSCOPIST: Dr. Welch. MEDICATION: Midazolam 3, fentanyl 37.5. FINDINGS: He is a healthy-appearing man, pale, poorly kempt, in no overt distress. EGD: Larynx - narrow with symmetric movement. Esophagus - easily entered. The mucosa is normal in the upper and mid esophagus. The EG junction at 43 to 44 has multiple deep erosions or ulcers with light exudate at the base. There is no active bleeding. There is no vessel or stigmata. Stomach - generally symmetric rugal folds and normal mucosa in the cardia and fundus. There are multiple small erosions in the body and proximal antrum. There is no bleeding. No ulcer is seen. The antrum appears normal. Duodenum - the pylorus, bulb, and second through fourth portions appear normal. IMPRESSION: 1. Loose diaphragmatic hiatus. 2. Gastritis - CLOtest pending. 3. Esophagogastric junction ulcers - certainly would be expected to bleed under the influence of aspirin and Xarelto. Why there may have been accelerated last week is yet to be determined. Double-dose PPI with no systemic anticoagulation should be followed by monitoring of his stool Hemoccult and presumably rise in hemoglobin. Whether to propose colonoscopy can be deferred to those followup encounters. [id number]/[facility] #: [id number] [facility]
[2017-12-17] MEDS: Omeprazole CAP* 20 MG PO SCH ×2 (18:15→20:42)
[2017-12-17] MEDS: Metoprolol Tartrate TAB* 25 MG PO SCH (20:42)
[2017-12-17] MEDS: diPHENhydraMINE PO* 25 MG PO PRN (22:53)
[2017-12-18] MEDS: Albuterol 2.5 MG/3 ML NEB.SOL* (0.083%) INH PRN (03:44)
[2017-12-18 05:48] LABS: Hematocrit 22 % (42-52); Hemoglobin 7.4 g/dl (14.0-18.0); Mean Corpuscular HGB Conc 34 g/dl (31-36); Mean Corpuscular Hemoglobin 29 pg (27-31); Mean Corpuscular Volume 88 fL (80-94); Mean Platelet Volume 9.6 um3 (7.4-10.4); Platelet Count 269 10^3/ul (150-450); Red Blood Count 2.52 10^6/ul (4.0-5.4); Red Cell Distribution Width 16 % (10.5-15)
[2017-12-18] MEDS: Diltiazem TAB* 60 MG PO SCH ×3 (05:51→17:57)
[2017-12-18] MEDS ORDERED: Magnesium Sulfate IV* 2 GM in NS 0.9% 100 ML* 100 ML IVPB ONE (05:55)
[2017-12-18] MEDS ORDERED: Magnesium Sulfate 2 GM IV* 2 GM/50 ML BAG IV ONE (06:00)
[2017-12-18 06:02] LABS: EGFR Non-African American 66.3 (>60)
[2017-12-18] MEDS: Mometasone/Formoter 200/5 MDI INH SCH ×2 (07:40→20:34)
[2017-12-18] MEDS: Omeprazole CAP* 20 MG PO SCH ×2 (09:51→20:59)
[2017-12-18] MEDS: Metoprolol Tartrate TAB* 25 MG PO SCH ×2 (09:52→20:59)
[2017-12-18] MEDS ORDERED: Albuterol/Ipratropium NEB.SOL* Albuterol 2.5 MG/Ipratropium 0.5 MG 3 ML INH PRN (10:23)
--- NOTE | 2017-12-18 16:37 | PN ---
Subjective Date of Service: 12/18/17 Interval History: Patient states that he is still short of breath with a non-productive cough. Patient denied abdominal pain, diarrhea, F/C, N/V, CP, dysuria, or other pain. Patient had a black tarry bowel movement today witnessed by nursing staff. Patient discussed spontaneously his plan to improve his diet and eat foods higher in iron. Family History: Unchanged from Admission Social History: Unchanged from Admission Past Medical History: Unchanged from Admission Objective Active Medications: Acetaminophen (Tylenol Tab*) 650 mg PO Q4H PRN PRN Reason: FEVER/PAIN Albuterol/Ipratropium (Duoneb (Albuterol 2.5 Mg/Ipratropium 0.5 Mg)) 1 neb INH Q4H PRN PRN Reason: SOB/WHEEZING Diltiazem HCl (Cardizem Tab*) 90 mg PO Q6HR [facility] Stop: 12/18/17 23:59 Last Admin: 12/18/17 12:18 Dose: 90 mg Diltiazem HCl (Cardizem Cd Cap*) 240 mg PO DAILY [facility] Diphenhydramine HCl (Benadryl Po*) 25 mg PO BEDTIME PRN PRN Reason: INSOMNIA Last Admin: 12/17/17 22:53 Dose: 25 mg Metoprolol Tartrate (Lopressor Iv*) 5 mg IV Q2H PRN PRN Reason: TACHYCARDIA Last Admin: 12/16/17 02:40 Dose: 5 mg Metoprolol Tartrate (Lopressor Tab*) 25 mg PO Q12HR [facility] Last Admin: 12/18/17 09:52 Dose: 25 mg Mometasone Furoate/Formoterol Fumar (Dulera 200/5 Mdi*) 2 puff INH BID JEANNE PRN Reason: Protocol Last Admin: 12/18/17 07:40 Dose: 2 puff Omeprazole (Prilosec Cap*) 20 mg PO BID [facility] Last Admin: 12/18/17 09:51 Dose: 20 mg Ondansetron HCl (Zofran Inj*) 4 mg IV Q6H PRN PRN Reason: NAUSEA Vital Signs - 8 hr 12/18/17 12/18/17 12/18/17 11:08 12:09 15:03 Temperature 97.6 F 98.1 F 97.7 F Pulse Rate 78 75 69 Respiratory 16 20 18 Rate Blood Pressure 109/58 108/62 102/48 (mmHg) O2 Sat by Pulse 99 98 99 Oximetry Oxygen Devices in Use Now: Nasal Cannula Appearance: Patient is a 72yo male who appears stated age and is sitting in the bed in NAD. Eyes: No Scleral Icterus, PERRLA Ears/Nose/Mouth/Throat: NL Teeth, Lips, Gums, Clear Oropharnyx, Mucous Membranes Moist Neck: NL Appearance and Movements; NL JVP, Trachea Midline Respiratory: Symmetrical Chest Expansion and Respiratory Effort, Clear to Auscultation, - - Diminished. Cardiovascular: NL Sounds; No Murmurs; No JVD, No Edema, - - Irregularly irregular rhythm. Abdominal: NL Sounds; No Tenderness; No Distention, No Hepatosplenomegaly Lymphatic: No Cervical Adenopathy Extremities: No Edema, No Clubbing, Cyanosis Skin: No Rash or Ulcers, No Nodules or Sclerosis Neurological: Alert and Oriented x 3, NL Sensation, NL Muscle Strength and Tone , - - CN II-XII intact. Result Diagrams: 12/18/17 05:20 12/18/17 05:20 Additional Lab and Data: Lab Results Microbiology and Other Data: Microbiology 12/16/17 21:32 Gram Stain - Final Sputum Expectorated Sputum Culture - Preliminary No Growth Day 1 12/17/17 09:32 CLOtest - Final Gastric Antrum 12/15/17 13:55 Nasal Screen MRSA (PCR)([facility]) - Final Nasal Mrsa Not Detected 12/15/17 13:00 Stool Occult Blood ([facility]) - Final Stool Assess/Plan/Problems-Billing Assessment: Patient is a 72yo male with a PMH for COPD, Afib, who presents with an acute GI bleed with SOB and cough. Patient had 1 unit of blood and had an EGD which showed non-bleeding ulcers on the GE junction. Patient is clinically improving but has persistent anemia. - Patient Problems (1) Acute GI bleeding Current Visit: Yes Status: Acute Code(s): K92.2 - GASTROINTESTINAL HEMORRHAGE, UNSPECIFIED SNOMED Code(s): 67025057 Comment: Patient's hemoglobin dropped from 13 at most recent measurement to 7 this admission. S/P 1u PRBC. EGD showed non-bleeding ulcers. Patient is not symptomatic at this time, significantly decreased SOB per patient. Had melanotic stool today. Continue to monitor and transfuse below 7. (2) COPD (chronic obstructive pulmonary disease) Current Visit: Yes Status: Acute Code(s): J44.9 - CHRONIC OBSTRUCTIVE PULMONARY DISEASE, UNSPECIFIED SNOMED Code(s): 83752933 Comment: Continue Duoneb PRN, maintenance inhalers. Wean Oxygen. No exacerbation. (3) Atrial fibrillation Current Visit: Yes Status: Acute Code(s): I48.91 - UNSPECIFIED ATRIAL FIBRILLATION SNOMED Code(s): 92148701 Comment: Currently rate controlled. Anticoagulation held in setting of GI bleed. Convert to Cardizem CD at 240mg. Continue metoprolol. (4) HTN (hypertension) Current Visit: Yes Status: Acute Code(s): I10 - ESSENTIAL (PRIMARY) HYPERTENSION SNOMED Code(s): 51537835 Comment: Normotensive, continue Cardizem and Metoprolol. (5) HLD (hyperlipidemia) Current Visit: Yes Status: Acute Code(s): E78.5 - HYPERLIPIDEMIA, UNSPECIFIED SNOMED Code(s): 46635426 Comment: Continue to hold gemfibrozil. (6) Full code status Current Visit: Yes Status: Acute Code(s): Z78.9 - OTHER SPECIFIED HEALTH STATUS SNOMED Code(s): 277873062 (7) DVT prophylaxis Current Visit: Yes Status: Acute Code(s): EBI7854 - SNOMED Code(s): 199473173 Comment: Held in setting of GI bleed. Status and Disposition: Inpatient.
[2017-12-19 05:00] LABS: Hematocrit 24 % (42-52); Hemoglobin 7.7 g/dl (14.0-18.0); Mean Corpuscular HGB Conc 33 g/dl (31-36); Mean Corpuscular Hemoglobin 29 pg (27-31); Mean Corpuscular Volume 89 fL (80-94); Mean Platelet Volume 9.5 um3 (7.4-10.4); Platelet Count 291 10^3/ul (150-450); Red Blood Count 2.64 10^6/ul (4.0-5.4); Red Cell Distribution Width 15 % (10.5-15); White Blood Count 11.1 10^3/ul (3.5-10.8)
[2017-12-19 05:18] LABS: EGFR Non-African American 60.5 (>60)
[2017-12-19] MEDS ORDERED: Magnesium Sulfate IV* 3 GM in NS 0.9% 100 ML* 100 ML IVPB ONE (05:28)
[2017-12-19 07:50] VITALS: BP 117/65
[2017-12-19] MEDS: Mometasone/Formoter 200/5 MDI INH SCH (08:36)
[2017-12-19] MEDS: Metoprolol Tartrate TAB* 25 MG PO SCH (08:44)
[2017-12-19] MEDS: Omeprazole CAP* 20 MG PO SCH (08:44)
[2017-12-19] MEDS ORDERED: Diltiazem CD CAP* 240 MG PO SCH (09:00)
--- NOTE | 2017-12-19 23:41 | DS ---
CC: LUIS Garcia; Autumn Gold DO* DISCHARGE SUMMARY: DATE OF ADMISSION: 12/15/17 DATE OF DISCHARGE: 12/19/17 PRIMARY CARE PROVIDER: LUIS Garcia. MY ATTENDING WHILE IN THE HOSPITAL: DEEPAK Guadalupe (dictated by LUIS Vazquez). PRIMARY DISCHARGE DIAGNOSES: 1. Acute GI bleed. 2. Shortness of breath. SECONDARY DISCHARGE DIAGNOSES: 1. Atrial fibrillation. 2. Chronic obstructive pulmonary disease. 3. Hypertension. 4. Hyperlipidemia. STUDIES DONE WHILE IN THE HOSPITAL: Chest x-ray from 12/15/17, read as volume loss in the right lung which may be postsurgical. Recommend comparison to previous imaging if available. Small right pleural effusion versus chronic pleural thickening. Electrocardiogram from 12/15/17, shows atrial fibrillation with rapid ventricular rate, rate of 150, PVCs. No ST segment abnormalities, normal axis. Transthoracic echocardiogram read as study technically difficult, left ventricular systolic function, estimated ejection fraction 55% to 60%. Left ventricular chamber size is decreased, mild concentric left ventricular hypertrophy is observed, left atrium is moderately to severely dilated, right atrium is moderately dilated, functionally benign heart valves on limited imaging with no prior echocardiogram to compare. MEDICATIONS AT DISCHARGE: 1. Symbicort 160/4.5 two puffs inhalation b.i.d. 2. Albuterol 2 puffs inhalation q.6 hours as needed. 3. Combivent Respimat 1 puff inhalation 4 times a day as needed. 4. Tylenol 650 mg p.o. q.4 hours as needed. 5. Diltiazem CD 360 mg p.o. daily. 6. Metoprolol tartrate 25 mg p.o. q.12 hours. 7. Omeprazole 20 mg p.o. b.i.d. 8. Albuterol and ipratropium in nebulized solution, 1 nebulizer inhalation q.4 hours as needed for shortness of breath. NEW MEDICATIONS AT DISCHARGE: 1. Diltiazem. 2. Metoprolol. 3. Omeprazole. 4. DuoNeb. MEDICATION DISCONTINUED AT DISCHARGE: Diltiazem 180 mg p.o. daily. HOSPITAL COURSE: This is a brief summary of the patient's presentation. For more details, please see history and physical from Abraham Gibbs NP, on . In brief, the patient is a 72-year-old male with past medical history significant for the above, who had 3 or 4 days of worsening shortness of breath , dyspnea on exertion, and general fatigue. The patient has been having for a significant period of time, a nonproductive cough. The patient denies coffee- ground emesis. The patient denied chest pain. The patient had palpitations. The patient was found to be in aflutter with a heart rate of 150. The patient was not on anticoagulation due to the atrial fibrillation, the patient had been taking Motrin 1 to 3 times a month. The patient was found to be very anemic. The patient was started on diltiazem drip as well as a Protonix drip. The patient was seen in consultation by the discharge coordinator, Dr. Koroma. The patient was continued on 10 mg an hour and it was believed that his RVR was due to his anemia. The patient also likely had a component of diastolic dysfunction due to tachycardia as well as his baseline chronic obstructive pulmonary disease. The patient was started on bronchodilators, which helped significantly. The patient was transfused 1 unit of packed red blood cells. The patient's hemoglobin on admission was 7.2, increased to 8.1 after transfusion, increased again to 8.2, then decreased back down to 7.6, 7.4, and then back up to 7.7. Other laboratory values pertinent from admission; initial BUN 31, BUN to creatinine ratio of 26.5, magnesium 1.6 on admission decreased to 1.4, troponin I negative on admission, CRP 49.45, CLOtest negative, creatinine 1.46 on admission which appears to be around the patient's baseline. The patient improved. The patient was seen in consultation by Dr. Nalini Vega of Gastroenterology. It was believed that the patient was not having active bleeding. The patient's management was continued. The patient had an EGD on with Dr. Garfield Welch, which showed nonbleeding esophageal gastric junction ulcers. The patient was needed to be on oxygen for majority of his hospitalization, but was able to be weaned off on 12/18/17. The patient was transferred out of the ICU on 12/17/17. The patient continued to improve on despite his white blood cell count decreasing and then felt ready for discharge on 12/19/17, felt more tired than normal but close to his baseline. The patient continued to have a nonproductive cough during his hospitalization. The patient's heart rate was generally well controlled after he was transitioned off the diltiazem drip, on immediate release Cardizem and metoprolol, and on the day of discharge, was below 110; however, his Cardizem dose was increased on the day of discharge due to the fact that his heart rate was over 100 at rest. PHYSICAL EXAM ON DATE OF DISCHARGE: General: The patient is a 72-year-old male , who appears stated age and sitting comfortably in bed in no acute distress. Vital signs at the time of discharge: Temperature 98.1, pulse rate 108, respiratory rate 16, oxygen saturation 92% on room air, blood pressure 117/65. HEENT: Head normocephalic, atraumatic. Sclerae anicteric. No conjunctival injection. Nasal mucosa moist. Oral mucosa moist. No pharyngeal erythema, discharge or exudates. Neck: Supple, nontender. No lymphadenopathy. No carotid bruit auscultated. No JVD. Cardiac: Regular rate and rhythm. No clicks, murmurs, gallops or rubs. Pulses are 2+ bilaterally in dorsalis pedis, posterior tibialis, and radial areas. No lower extremity edema noted. Respiratory: Diminished throughout. Clear to auscultation bilaterally. No wheezes, rales or rhonchi. Abdomen: Soft, nontender, and nondistended. Bowels sounds present, normoactive in all 4 quadrants. No hepatosplenomegaly, no abdominal bruits auscultated. Genitourinary: No suprapubic or CVA tenderness. Skin: Clean, dry and intact. No rash. Neuro: Cranial nerves II through XII intact. No focal deficits. Alert and oriented x3. Psychiatric: Pleasant and cooperative. PERTINENT LABORATORY DATA: From admission in the [facility]. DISCHARGE PLAN: The patient will be discharged to home. The patient was given a prescription for nebulizer and nebulizer treatments as he found these to be very helpful while in the hospital. The patient was found to have a low iron, low iron saturation, low transferrin and a normal ferritin while in the hospital. These results are most consistent with anemia of chronic disease. The patient does not have a known inflammatory condition. The patient should have at some point a repeat CRP and iron studies done to assess for possible iron deficiency anemia related to his GI bleed. The patient will not be started on iron supplementation at this time. The patient should follow up with his primary care provider within 1 week for repeat CBC and monitoring of his rate control. The patient's rate control is expected to get better as he produces more red blood cells. The patient to continue with his omeprazole twice daily until instructed to decrease by his primary care provider as evidenced with the goal of being an increase in his hemoglobin and a possible repeat Hemoccult showing a negative result. The patient should have a routine screening colonoscopy at some point in the future based on his most recent screening colonoscopy and possible family history of colon cancer. The patient returns to the hospital for persistent dark tarry stools, bright red blood per rectum, blood in his vomit, syncope, chest pain, severely increased shortness of breath or other alarming symptoms. The patient should have a heart- healthy diet without caffeine. The patient should engage in activity as tolerated with being cognitive of his limitations in the hips as he is anemic. This has been discussed with the patient, he is in agreement. TIME SPENT: Approximately 60 minutes were spent on the discharge, 30 of which was spent [id number] with the patient and obtaining history and physical and discussing treatment plan. LUIS VAZQUEZ [id number]/CPS #: [id number] MTDD
[2017-12-20] MEDS ORDERED: Diltiazem CD CAP* 180 MG PO SCH (09:00)
== END 2017-12-19 12:16 | disposition home or self-care (01) | DRG 378 ==
LOC: ED 10:09 → ICU 12:19 → MEDTELE 12-17 17:58
PROVIDERS: ADMIT Internal Medicine; ATTEND Internal Medicine
PROC: 30233N1 Transfusion of Nonautologous Red Blood Cells into Peripheral Vein, Percutaneous Approach (ICD-10-PCS; principal; 2017-12-15)
PROC: 0DB68ZX Excision of Stomach, Via Natural or Artificial Opening Endoscopic, Diagnostic (ICD-10-PCS; 2017-12-17)
DX: K92.2 Gastrointestinal hemorrhage, unspecified (principal); D62 Acute posthemorrhagic anemia; I48.92 Unspecified atrial flutter; E87.0 Hyperosmolality and hypernatremia; N17.9 Acute kidney failure, unspecified; K22.10 Ulcer of esophagus without bleeding; R06.02 Shortness of breath; I48.91 Unspecified atrial fibrillation; J44.9 Chronic obstructive pulmonary disease, unspecified; I10 Essential (primary) hypertension; R06.03 Acute respiratory distress; K44.9 Diaphragmatic hernia without obstruction or gangrene; T39.015A Adverse effect of aspirin, initial encounter; E78.5 Hyperlipidemia, unspecified; I44.7 Left bundle-branch block, unspecified; Z79.899 Other long term (current) drug therapy; Z82.3 Family history of stroke; Z83.3 Family history of diabetes mellitus; Z87.891 Personal history of nicotine dependence; Y92.9 Unspecified place or not applicable
CPT/HCPCS: 36415; 71045; 80048; 80053; 80076; 81003; 82272; 82570; 82728; 83540; 83550; 83605; 83735; 83880; 84300; 84484; 85014; 85018; 85025; 85027; 85610; 85730; 86140; 86850; 86900; 86901; 86922; 87070; 87077; 87205; 87641; 93005; 93306; 94640; 94760; 99156; 99285; A9270-GY; J0153; J2250; J3010; J3475; J3480; J3490; P9040

== ENCOUNTER 2018-09-09 10:52 | Inpatient (IN) | payer MEDICARE, MEDICAID ==
[2018-09-09] MEDS ORDERED: NS 0.9% 1000 ML* 1,000 ML IV ONE (11:06)
--- NOTE | 2018-09-09 11:07 | ED ---
Complex/Multi-Sys Presentation - HPI Summary HPI Summary: A 73 y/o M presents to ED with c/o ongoing weakness since 09/03/2018 which pt was released from hospital. He has had 5 falls at home, but denies head trauma. Patient was in the hospital for a-fib, n/v. He felt he went home too soon. Associated sx: palpitations, cough, n/v/d. Patient has not vomited today, but says he hasn't been eating. Denies CP, abd pain. He is on Xarelto. He is medication compliant and has been receiving breathing treatments but they do not provide him relief. Additional PMHx: COPD. - History Of Current Complaint Chief Complaint: EDGeneral Time Seen by Provider: 09/09/18 11:01 Hx Obtained From: Patient, Family/Post Acute Care Registered Nurse Onset/Duration: Gradual Onset, Lasting Weeks, Still Present Timing: Constant Severity Currently: Moderate Severity Initially: Moderate Associated Signs And Symptoms: Positive: Weakness, Palpitations, Nausea, Vomiting, Diarrhea. Negative: Chest Pain, Abdominal Pain Related History: Recent Hospitalization - Allergies/Home Medications Allergies/Adverse Reactions: Allergies Allergy/AdvReac Type Severity Reaction Status Date / Time No Known Allergies Allergy Mild See Comment Verified 12/15/17 10:23 Home Medications: Home Medications Diltiazem CD CAP* [Cardizem CD CAP*] 180 mg PO DAILY 09/09/18 [History Confirmed 09/09/18] Folic Acid 1 mg PO DAILY 09/09/18 [History Confirmed 09/09/18] Metoprolol Tartrate TAB* [Lopressor TAB*] 25 mg PO TID 09/09/18 [History Confirmed 09/09/18] Glidden-3 Fatty Acids/Fish Oil [Glidden 3] 1 cap PO DAILY 09/09/18 [History Confirmed 09/09/18] Rivaroxaban TAB(*) [Xarelto 20 mg] 20 mg PO DAILY 09/09/18 [History Confirmed ] Tamsulosin CAP* [Flomax CAP*] 0.4 mg PO DAILY 09/09/18 [History Confirmed ] Terazosin CAP* [Hytrin CAP*] 1 mg PO BEDTIME 09/09/18 [History Confirmed ] buPROPion HCl [Wellbutrin Sr] 150 mg PO BID 09/09/18 [History Confirmed 09/09/18 ] clonazePAM [Clonazepam] 0.5 mg PO BEDTIME 09/09/18 [History Confirmed 09/09/18] PMH/Surg Hx/FS Hx/Imm Hx Previously Healthy: No Endocrine/Hematology History: Denies: Hx Diabetes Cardiovascular History: Reports: Hx Hypercholesterolemia, Hx Hypertension Respiratory History: Reports: Hx Chronic Bronchitis, Hx Chronic Obstructive Pulmonary Disease (COPD) Denies: Hx Asthma Musculoskeletal History: Reports: Hx Arthritis Sensory History: Reports: Hx Contacts or Glasses Denies: Hx Hearing Aid Opthamlomology History: Reports: Hx Contacts or Glasses Infectious Disease History: No Infectious Disease History: Denies: Traveled Outside the [place] in Last 30 Days - Family History Known Family History: Positive: Cardiac Disease, Hypertension, Other - Hypercholesterolemia - Social History Occupation: Retired Lives: With Family Alcohol Use: None Hx Substance Use: No Substance Use Type: Reports: None Hx Tobacco Use: Yes Smoking Status (MU): Former Smoker Type: Cigarettes Have You Smoked in the Last Year: No Review of Systems Positive: Palpitations. Negative: Chest Pain Positive: Cough Positive: Vomiting, Diarrhea, Nausea. Negative: Abdominal Pain Positive: Weakness All Other Systems Reviewed And Are Negative: Yes Physical Exam - Summary Physical Exam Summary: VITAL SIGNS: Reviewed. GENERAL: Patient is an elderly MALE in poor hygiene, unkempt, who is lying comfortable in the stretcher. Patient is not in any acute respiratory distress. HEAD AND FACE: No signs of trauma. No ecchymosis, hematomas or skull depressions. No sinus tenderness. EYES: PERRLA, EOMI x 2, No injected conjunctiva, no nystagmus. EARS: Hearing grossly intact. Ear canals and tympanic membranes are within normal limits. MOUTH: Oral mucosa is dry. NECK: Supple, trachea is midline, no adenopathy, no JVD, no carotid bruit, no c- spine tenderness, neck with full ROM. CHEST: Symmetric, no tenderness at palpation LUNGS: Thrill CVS: Tachycardic at 151 bpm, S1 and S2 present, no murmurs or gallops appreciated. ABDOMEN: Soft, non-tender. No signs of distention. No rebound, no guarding, and no masses palpated. Bowel sounds are normal. EXTREMITIES: FROM in all major joints, no edema, no cyanosis or clubbing. NEURO: Alert and oriented x 3. No acute neurological deficits. Speech is normal and follows commands. SKIN: Dry and warm Triage Information Reviewed: Yes Vital Signs On Initial Exam: Initial Vitals Temp Pulse Resp BP Pulse Ox 98.3 F 151 22 131/83 95 09/09/18 10:53 09/09/18 10:53 09/09/18 10:53 09/09/18 10:53 09/09/18 10:53 Vital Signs Reviewed: Yes Diagnostics - Vital Signs Vital Signs Temp Pulse Resp BP Pulse Ox 09/09/18 10:53 98.3 F 151 22 131/83 95 - Laboratory Result Diagrams: 09/10/18 05:00 09/10/18 05:00 Lab Statement: Any lab studies that have been ordered have been reviewed, and results considered in the medical decision making process. - Radiology CXR Radiology Interpretation Completed By: Radiologist Summary of Radiographic Findings: IMPRESSION: 1. No acute cardiopulmonary process. 2. Unchanged right lower lung zone volume loss with subsegmental atelectasis. 3. Unchanged small right pleural effusion versus pleural thickening. ED provider has reviewed this report. - EKG 1115 EKG Rhythm: Atrial Flutter - at 146 bpm EKG Comparison: No Significant Change - from EKG on 12/15/17 Complex Multi-Symp Course/Dx Assessment/Plan: A 73 y/o M presents to ED with c/o ongoing weakness since 2018 which pt was released from hospital. He has had 5 falls at home, but denies head trauma. Patient was in the hospital for a-fib, n/v. He felt he went home too soon. Associated sx: palpitations, cough, n/v/d. Patient has not vomited today, but says he hasn't been eating. Denies CP, abd pain. He is on Xarelto. He is medication compliant and has been receiving breathing treatments but they do not provide him relief. Additional PMHx: COPD. Patient has past medical history of GI bleed, COPD, atrial fibrillation, hypertension and dyslipidemia. Blood work without any significant abnormality except for WBCs of 16.6, H&H is 12.7 and 40 and platelets 110. Glucose is 106 (magnesium is 1.6 total, bili is 3.5, and albumin is 2.7.). Chest x-ray impression: No acute cardiopulmonary process. In the ED course, the patient initially had a heart rate: 150, and an EKG shows the patient is in atrial flutter. Patient was given Cardizem 20 mg IV and IV fluids. At this time the patients heart rate to [address] the patient on a Cardizem drip. I discuss my physical exam, findings and test results with Dr. Barbosa from the hospitalist services and he agrees to admit patient to his services. Patient is hemodynamically stable alert and oriented x 3. - Diagnoses Provider Diagnoses: Atrial flutter with rapid ventricular response - Physician Notifications Discussed Care Of Patient With: Ct Barbosa - hospitalist Time Discussed With Above Provider: 12:08 Instructed by Provider To: Admit As Inpatient - Critical Care Time Critical Care Time: 30-74 min - 45 mins Discharge - Sign-Out/Discharge Documenting (check all that apply): Patient Departure - ADMIT - Discharge Plan Condition: Stable Disposition: ADMITTED TO [facility] - Billing Disposition and Condition Condition: STABLE Disposition: Admitted to [facility] - Attestation Statements Document Initiated by Kariibe: Yes Documenting Scribe: Cortney Osullivan Provider For Whom Kariibe is Documenting (Include Credential): Dr. Tim Clark MD Scribe Attestation: I, kari Onofreibed for Dr. Tim Clark MD on 09/10/18 at 1707. Scribe Documentation Reviewed: Yes Provider Attestation: The documentation as recorded by the Cortney turner accurately reflects the service I personally performed and the decisions made by me, Dr. Tim Clark MD Status of Scribe Document: Viewed
[2018-09-09] MEDS ORDERED: Diltiazem IV* 5 MG/ML 5 ML VIAL (for loading dose/IV Push) (25 MG) IV SLOW PU ONE (11:21)
[2018-09-09 11:28] LABS: ABS Basophils 0.1 10^3/ul (0-0.2); ABS Eosinophils 0 10^3/ul (0-0.6); ABS Lymphocytes 0.6 10^3/ul (1.0-4.8); ABS Neutrophils 14.9 10^3/ul (1.5-7.7); ABS Nucleated RBC 0 10^3/ul; Eosinophil % 0.3 %; Hematocrit 40 % (42-52); Hemoglobin 12.7 g/dl (14.0-18.0); Lymphocyte % 3.9 %; Mean Corpuscular HGB Conc 32 g/dl (31-36); Mean Corpuscular Hemoglobin 25 pg (27-31); Mean Corpuscular Volume 79 fL (80-94); Mean Platelet Volume 9.2 fL (7.4-10.4); Nucleated Red Blood Cells % 0; Platelet Count 410 10^3/ul (150-450); Red Blood Count 5.08 10^6/ul (4.00-5.40); Red Cell Distribution Width 16 % (10.5-15); White Blood Count 16.6 10^3/ul (3.5-10.8)
[2018-09-09 11:45] LABS: Albumin 2.7 g/dL (3.2-5.2); Albumin/Globulin Ratio 0.8 (1-3); BUN/Creatinine Ratio 21.5 (8-20); Calcium 8.8 mg/dL (8.6-10.3); EGFR Non-African American 67.6 (>60); Globulin 3.6 g/dL (2-4); Magnesium 1.6 mg/dL (1.9-2.7); Potassium 3.8 mmol/L (3.5-5.0); Total Bilirubin 3.5 mg/dL (0.2-1.0); Total Protein 6.3 g/dL (6.4-8.9)
[2018-09-09] MEDS ORDERED: Diltiazem IV VIAL* 125 MG in NS 0.9% 100 ML* 100 ML IV SCH (12:00)
[2018-09-09] MEDS ORDERED: Diltiazem IV VIAL* 125 MG in NS 0.9% 100 ML* 100 ML IVPB ONE (12:04)
[2018-09-09] MEDS ORDERED: Magnesium Sulfate 1 GM IV* 1 GM/100 ML BAG IV ONE (12:09)
[2018-09-09 12:24] LABS: TSH (Thyroid Stimulating Horm) 2.29 mcIU/mL (0.34-5.60)
[2018-09-09] MEDS ORDERED: Potassium Chlor TAB* 20 MEQ TAB.ER PO ONE (13:00)
[2018-09-09] MEDS ORDERED: Magnesium Sulfate 2 GM IV* 2 GM/50 ML BAG IVPB ONE (13:00)
[2018-09-09] MEDS ORDERED: Acetaminophen TAB* 325 MG PO PRN (13:06)
[2018-09-09] MEDS ORDERED: Albuterol HFA INHALER* 8 gm MDI INH PRN (13:06)
[2018-09-09] MEDS ORDERED: Albuterol/Ipratropium NEB.SOL* Albuterol 2.5 MG/Ipratropium 0.5 MG 3 ML INH PRN (13:06)
[2018-09-09 13:17] LABS: Urine Appearance Turbid; Urine Bacteria 2+ (Absent); Urine Bilirubin Negative (Negative); Urine Blood 1+ (Negative); Urine Color Amber; Urine Glucose Negative (Negative); Urine Ketones Trace (Negative); Urine Nitrite Negative (Negative); Urine Protein 1+(30 mg/dL) (Negative); Urine Red Blood Cell 2+(6-10/hpf) (Absent); Urine Specific Gravity 1.012 (1.010-1.030); Urine Transitional Epithelial Present (Absent); Urine Urobilinogen Positive (Negative); Urine White Blood Cell 3+(>20/hpf) (Absent)
[2018-09-09] MEDS ORDERED: NS 0.9% 1000 ML*IV.FLUID IV ONE (14:23)
[2018-09-09] MEDS: cefTRIAXone(*) 1 GM in NS 0.9% 50 ML* 50 ML IVPB SCH (14:59)
[2018-09-09] MEDS: Metoprolol Tartrate TAB* 25 MG PO SCH ×2 (15:34→20:45)
[2018-09-09] MEDS: Albuterol/Ipratropium NEB.SOL* Albuterol 2.5 MG/Ipratropium 0.5 MG 3 ML INH SCH ×2 (15:49→19:08)
[2018-09-09] MEDS ORDERED: Albuterol/Ipratropium RESP(NF) MDI (Combivent Respimat) INH SCH (17:00)
--- NOTE | 2018-09-09 17:02 | HP ---
CC: LUIS Garcia * HISTORY AND PHYSICAL: DATE OF ADMISSION: 09/09/18 PRIMARY CARE PROVIDER: LUIS Garcia ATTENDING PHYSICIAN: Dr. Ct Barbosa * (dictated by Allison Bull NP). CHIEF COMPLAINT: Weakness. HISTORY OF PRESENT ILLNESS: Mr. Burrows is a 73-year-old male with past medical history significant for hyperlipidemia, hypertension, COPD, atrial flutter, who reports recently being hospitalized at [facility] for atrial flutter, nausea, vomiting and dehydration. He states that he was discharged home on 09/03/18. Since being home, he has not been eating well. His reports he has only eaten 2 meals over the course of the week. He states he just has a poor appetite. He reports feeling as though he has been having intermittent fevers and chills, but has not checked his temperature. Denies any chest pain. He has shortness of breath with exertion. For the last month, he has had a cough that is occasionally productive with yellow mucus. He denies nausea, vomiting, diarrhea. He reports upper abdominal discomfort especially when he is coughing. He intermittently has palpitations, but denies any recent palpitations. He reports dysuria starting yesterday. Due to his symptoms and his generalized weakness and having 5 falls at home over the course of the week, he presented to the emergency room for further evaluation of his symptoms. While in the emergency room, he had labs showing a hypomagnesemia, leukocytosis with a white blood cell count of 16.6. His total bilirubin is 3.50, troponin of 0.03, lactic acid of 1.1. He had an EKG showing an atrial flutter with a rate of 146, diffuse ST depressions felt to be secondary to his rate. This is similar to previous EKG from 11/28/17. He also had a chest x-ray showing no acute cardiopulmonary disease. He received a Cardizem IV bolus and was started on a Cardizem drip. Due to his presentation, the hospitalists were asked to evaluate the patient for admission. PAST MEDICAL HISTORY: 1. Hyperlipidemia. 2. Hypertension. 3. COPD. 4. Atrial flutter. 5. BPH. 6. Anxiety. 7. GERD. PAST SURGICAL HISTORY: None. HOME MEDICATIONS: Include: 1. Xarelto 20 mg oral daily. 2. Terazosin 1 mg oral daily at bedtime. 3. Flomax 0.4 mg oral daily. 4. Atco-3 one capsule oral daily. 5. Clonazepam 0.5 mg oral daily at bedtime. 6. Wellbutrin 150 mg oral twice daily. 7. Metoprolol tartrate 25 mg oral 3 times daily. 8. Folic acid 1 mg oral daily. 9. Gemfibrozil 600 mg oral twice daily. 10. Omeprazole 20 mg oral twice daily. 11. Diltiazem 180 mg oral daily. 12. Acetaminophen 650 mg oral every 4 hours as needed for fever or pain. 13. Symbicort 160/4.5 two puffs inhalation twice daily. 14. Combivent Respimat 1 puff inhalation 4 times daily. 15. Albuterol/ipratropium nebulizer 1 neb inhalation every 4 hours as needed for shortness of breath or wheeze. 16. Albuterol HFA inhaler 2 puffs inhalation every 6 hours as needed for shortness of breath or wheeze. ALLERGIES: No known drug allergies. FAMILY HISTORY: The patient's mother with a history of coronary artery disease , diabetes, and TIA. Maternal aunt and maternal cousin with a history of diabetes mellitus. He denies family history of cancer. SOCIAL HISTORY: He is a former smoker, quitting 6 to 7 years ago. Prior to that , he had 1 pack a day smoking history since age 8. He is a former alcoholic. Denies alcohol use currently. Denies recreational drugs. His , Ysabel Burrows , will be his surrogate decision maker in the event he is unable to make decisions for himself. REVIEW OF SYSTEMS: I performed an 11-point review of systems. All the pertinent positives and negatives are mentioned in the history of present illness. Remaining review of systems are negative. PHYSICAL EXAMINATION GENERAL APPEARANCE: The patient is alert, pleasant, and appears to be in no acute distress. VITAL SIGNS: Temperature 98.3, heart rate 142, respiratory rate 24, O2 sat 95% on room air, blood pressure 152/88. HEENT: Normocephalic, atraumatic. Pupils are equal and reactive to light. Extraocular movements are intact. RESPIRATORY: There is no accessory muscle use. The lungs are clear to auscultation bilaterally. CARDIOVASCULAR: Regular rate and rhythm. S1 and S2 present. There is a grade 3- 4/6 systolic murmur heard throughout the pericardium, but most predominant at the apex. ABDOMEN: Soft, nontender, nondistended. There are bowel sounds present x4. EXTREMITIES: There is no lower extremity edema. DP and PT pulses are 2+ and symmetric. MUSCULOSKELETAL: There is no clubbing or cyanosis noted. The patient exhibits good strength in all extremities. NEUROLOGIC: The patient is alert and oriented x4. Cranial nerves II through XII are grossly intact. PSYCHOLOGIC: Calm and cooperative. SKIN: There are no rashes or abnormalities seen other than a skin growth to the right side of his neck down from his mandible that appears to be a keratosis. DIAGNOSTIC STUDIES/LAB DATA: Sodium 136, potassium 3.8, chloride 99, CO2 28, BUN 23, creatinine 1.07, glucose 106. White blood cell count 16.6, hemoglobin 12.7, hematocrit 40, platelet count 410. Magnesium 1.6. Troponin 0.03. Total bilirubin 3.50. EKG shows an atrial flutter and a rate of 146. There is diffuse ST depression suspect secondary to his rate. This is similar to previous EKG from 12/15/17. Chest x-ray from today. No acute cardiopulmonary process. Unchanged right lower lobe zone volume loss with subsegmental atelectasis. Unchanged small right pleural effusion versus pleural thickening. IMPRESSION: Mr. Burrows is a 73-year-old male with past medical history significant for hyperlipidemia, hypertension, chronic obstructive pulmonary disease and atrial flutter, who presents to the emergency room with complaints of weakness. He will be admitted as an inpatient for atrial flutter with a rapid rate with a urinary tract infection and sepsis. ASSESSMENT/PLAN: 1. Atrial flutter with rapid rate. I suspect this is secondary to an infection. He has received a Cardizem bolus and started on a Cardizem drip. While in the ER, the drip was just being started with a heart rate in the 130s. Send him to the ICU and titrate his Cardizem drip. Hold his oral Cardizem for now and continue his home metoprolol. I suspect that he is in chronic atrial flutter, but he is not sure. His potassium is 3.8. I am going to give him 20 mEq of potassium. Additionally, his magnesium is 1.6. I am going to give him 2 g of magnesium today. Recheck labs tomorrow with goal potassium of greater than 4 and magnesium greater than 2. He last had an echocardiogram in November of 2017. At that time, he had an EF of 55% to 60%, moderate concentric left ventricular hypertrophy and functionally benign heart valves. If we are unable to rate control him, we will ask Cardiology to consult. He will be continued on Xarelto. 2. Systolic heart murmur. The patient has a significant systolic heart murmur heard throughout his pericardium and most predominantly in the apex. I do not see where this is documented before and the patient is unaware of having a heart murmur in the past, although he had a negative echo in November of 2017. As this may be a new finding, I am unable to obtain records from [facility] today. I am going to repeat an echocardiogram tomorrow to evaluate his valves. 3. Urinary tract infection with associated sepsis. Mr. Burrows is meeting sepsis criteria at this time as his temperature is 101.4, he is tachycardic with a heart rate in the 140s, he is tachypneic with respiratory rate in the mid 20s to 30s, additionally he has a white count of 16.6. He has a positive urinalysis. I am going to start him on ceftriaxone. He will receive normal saline fluid bolus and we will continue him on gentle hydration after that. His initial lactic acid was 1.1. Blood cultures have been obtained. 4. Elevated total bilirubin. The patient's bilirubin is significantly elevated above his baseline. I suspect this could be secondary to end organ damage in the setting of a urinary tract infection and sepsis. We will repeat a CMP tomorrow. If he continues to have an elevated total bilirubin, we will consider getting LFTs. His AST and ALT are within normal limits. 5. Hyperlipidemia. He will be continued on his home gemfibrozil. 6. Hypertension. We will continue his metoprolol and continue IV diltiazem and transition him back to oral diltiazem as able. 7. Chronic obstructive pulmonary disease. He has no sign of acute chronic obstructive pulmonary disease exacerbation at this time. Continue him on his home albuterol and DuoNeb as needed. We do not stock Combivent Respimat here, so I will have him on four times daily DuoNeb while he is here and continue his Symbicort. 8. Benign prostatic hypertrophy. Continue his terazosin and Flomax. 9. Anxiety. The patient will be continued on his home Wellbutrin and clonazepam. 10. Gastroesophageal reflux disease. The patient will be continued on his home omeprazole. 11. Fluids, electrolytes, and nutrition: He will be on a heart-healthy, no caffeine diet. 12. Code status: Full code. 13. DVT prophylaxis: He is at moderate risk and will be continued on Xarelto. 14. Disposition: Inpatient. TIME SPENT: Time for this admission was approximately 60 minutes, greater than half of that was spent with the patient and discussing medications, past medical history, the events leading up to his arrival today, and performing a physical examination. The case has been reviewed with the attending, Dr. Barbosa, who agrees with the plan of care. ALLISON BULL, LAUREN [id number]/CPS #: [id number] TERRY
[2018-09-09] MEDS: buPROPion SR TAB.SR* 150 MG PO SCH (17:47)
[2018-09-09] MEDS: Mometasone/Formoter 200/5 MDI INH SCH (19:08)
[2018-09-09] MEDS ORDERED: Ondansetron INJ* 2 MG/ML VIAL IV PRN (19:41)
[2018-09-09] MEDS: Gemfibrozil TAB* 600 MG PO SCH (20:44)
[2018-09-09] MEDS: clonazePAM TAB(*) 0.5 MG PO SCH (20:44)
[2018-09-09] MEDS: Terazosin CAP* 1 MG PO SCH (20:44)
[2018-09-09] MEDS: Pantoprazole TAB * 40 MG TAB PO SCH (20:45)
[2018-09-09] MEDS: Diltiazem IV VIAL* 125 MG in NS 0.9% 100 ML* 100 ML IV SCH (20:51)
[2018-09-09] MEDS: NS 0.9% 1000 ML* 1,000 ML IV SCH (21:41)
[2018-09-10 05:22] LABS: Albumin 2.1 g/dL (3.2-5.2); Albumin/Globulin Ratio 0.7 (1-3); BUN/Creatinine Ratio 20.7 (8-20); Calcium 7.8 mg/dL (8.6-10.3); EGFR Non-African American 80.4 (>60); Globulin 3.1 g/dL (2-4); Magnesium 1.7 mg/dL (1.9-2.7); Potassium 3.8 mmol/L (3.5-5.0); Total Bilirubin 1.4 mg/dL (0.2-1.0); Total Protein 5.2 g/dL (6.4-8.9)
[2018-09-10 05:30] LABS: ABS Basophils 0.1 10^3/ul (0-0.2); ABS Eosinophils 0.1 10^3/ul (0-0.6); ABS Lymphocytes 0.7 10^3/ul (1.0-4.8); ABS Monocytes 0.9 10^3/ul (0-0.8); ABS Neutrophils 13.3 10^3/ul (1.5-7.7); ABS Nucleated RBC 0 10^3/ul; Eosinophil % 0.5 %; Hematocrit 32 % (42-52); Hemoglobin 10.1 g/dl (14.0-18.0); Lymphocyte % 4.6 %; Mean Corpuscular HGB Conc 31 g/dl (31-36); Mean Corpuscular Hemoglobin 25 pg (27-31); Mean Corpuscular Volume 80 fL (80-94); Mean Platelet Volume 9.5 fL (7.4-10.4); Nucleated Red Blood Cells % 0; Platelet Count 342 10^3/ul (150-450); Red Blood Count 4.07 10^6/ul (4.00-5.40); Red Cell Distribution Width 16 % (10.5-15); White Blood Count 15.1 10^3/ul (3.5-10.8)
[2018-09-10] MEDS: Diltiazem IV VIAL* 125 MG in NS 0.9% 100 ML* 100 ML IV SCH ×2 (08:06→12:20)
[2018-09-10] MEDS ORDERED: Perflutren Lipid Microsphere* 3 ML VIAL ONE (08:10)
[2018-09-10] MEDS: Albuterol/Ipratropium NEB.SOL* Albuterol 2.5 MG/Ipratropium 0.5 MG 3 ML INH SCH ×4 (08:59→21:14)
[2018-09-10] MEDS: Mometasone/Formoter 200/5 MDI INH SCH ×2 (09:11→21:14)
[2018-09-10] MEDS: buPROPion SR TAB.SR* 150 MG PO SCH ×2 (09:38→16:59)
[2018-09-10] MEDS: Pantoprazole TAB * 40 MG TAB PO SCH ×2 (09:39→21:09)
[2018-09-10] MEDS: Folic Acid TAB* 1 MG PO SCH (09:39)
[2018-09-10] MEDS: Tamsulosin CAP* 0.4 MG PO SCH (09:39)
[2018-09-10] MEDS: Gemfibrozil TAB* 600 MG PO SCH ×2 (09:39→21:09)
[2018-09-10] MEDS: Metoprolol Tartrate TAB* 25 MG PO SCH ×3 (09:39→21:09)
[2018-09-10] MEDS: Rivaroxaban TAB(*) 20 MG TAB PO SCH (09:39)
--- NOTE | 2018-09-10 09:57 | ECHO ---
Patient: OLGA JAUREGUI [facility] Rec#: [id number] : 1945 Date: 09/10/2018 Age: 73y Height: 185 cm / 72.8 in Weight: 94 kg / 207.2 lbs Sex: M BSA: 2.18 Room#: [facility] Admit Date#: 09/09/2018 Type: Inpatient Referring: Alondra Landis NP Reading: Marc Moran MD Associate Professor Of Sociology: Moni Cross [facility] Transthoracic Echocardiogram Indication: Murmur BP: 102/67 HR: 89 Rhythm: A-Flutter Findings History: HTN,HLD,COPD,a-flutter,BPH,anxiety,GERD,3-4/6 systolic murmur. Technical Comments: The study is technically difficult. Completed at 0849. The study is technically limited due to poor acoustic windows. Definity used to enhance images. The study is technically limited due to the patient's history of COPD. Left Ventricle: The left ventricle is not well visualized. Mild concentric left ventricular hypertrophy is observed. Global left ventricular wall motion and contractility are within normal limits. There is normal left ventricular systolic function. The estimated ejection fraction is 50-55%. The assessment of diastolic function is non-diagnostic. Left Atrium: The left atrium is not well visualized. Right Ventricle: The right ventricular global systolic function is normal. Right Atrium: The right atrium is mildly dilated. Aortic Valve: The aortic valve structure is not well visualized. There is borderline aortic stenosis present. This may be an over estimation due to poor images. The mean gradient of the aortic valve is 8 mmHg. Mitral Valve: The mitral valve leaflets appear normal. There is no evidence of mitral regurgitation. There is no evidence of mitral stenosis. Tricuspid Valve: The tricuspid valve leaflets are normal. There is trace to mild tricuspid regurgitation. There is evidence of mild pulmonary hypertension. There is no tricuspid stenosis. Pulmonic Valve: The pulmonic valve structure is not well visualized. Pericardium: The pericardium appears normal. Aorta: The ascending aorta is not well visualized. There is no dilatation of the aortic arch. The aortic root is not well visualized. Pulmonary Artery: The main pulmonary artery is not well visualized. Venous: The inferior vena cava is dilated. There is a greater than 50% respiratory change in the inferior vena cava dimension. Contrast: Definity was used to optimize study. A total of 4 ml used. Intravenous contrast was used to enhance endocardial border definition. Conclusions The study is technically limited due to the patient's history of COPD. Mild concentric left ventricular hypertrophy is observed. Global left ventricular wall motion and contractility are within normal limits. The estimated ejection fraction is 50-55%. There is borderline aortic stenosis present. This may be an over estimation due to poor images. The mean gradient of the aortic valve is 8 mmHg. There is no evidence of mitral regurgitation. There is trace to mild tricuspid regurgitation. There is evidence of mild pulmonary hypertension. The ascending aorta is not well visualized. Compared to study of 11/2017, there is little change Measurements Name Value Normal Range RVDdMajor (2D) 3.4 cm (2.2 - 4.4) RAd ISD 4CH 4.5 cm (3.4 - 4.9) RA (A4C)W 5.8 cm (2.9 - 4.6) Aortic arch 1.9 cm (1.8 - 3.4) Descending Ao 0.5 cm - LAd ISD 4CH 6.5 cm (2.9 - 5.3) LA ISD 4CH W 5.6 cm (2.5 - 4.5) Name Value Normal Range MV E-wave Vmax 1.1 m/sec - MV deceleration time 213 msec - LV septal e' Vmax 0.11 m/sec - LV lateral e' Vmax 0.07 m/sec - LV E:e' septal ratio 10 ratio - LV E:e' lateral ratio 15.7 ratio - Name Value Normal Range AV Vmax 2.3 m/sec - AV VTI 34.8 cm - AV peak gradient 22 mmHg - AV mean gradient 8 mmHg - LVOT Vmax 0.7 m/sec - LVOT VTI 11.8 cm - LVOT peak gradient 1 mmHg - Name Value Normal Range TR Vmax 2.1 m/sec - TR peak gradient 18 mmHg - RAP 8 mmHg - RVSP 26 mmHg - IVC diameter 2.4 cm -
[2018-09-10] MEDS: NS 0.9% 1000 ML* 1,000 ML IV SCH ×2 (11:01→15:36)
--- NOTE | 2018-09-10 12:25 | PN ---
Subjective Date of Service: 09/10/18 Interval History: HD #2 09/10/18 73 yo M admitted with UTI/Sepsis and A Flutter with RVR. Pt is seen in bed while getting an echocardiogram. He has no acute complaints other than mild SOB and fatigue and had mild hypoxia overnight satting in the high 80's on RA and placed on 2L NC. Otherwise VSS stable remains afebrile, T Max 101 09/09, afebrile overnight, [id number]/56-78 MAP > 65 throughout, HR 115 into 09/09 PM, now at 80s-low 100s. He made about 370cc of urine overnight. No BM. Labs: Leukocytosis to 15 this morning, anemia to (from ), Mag 1.7, K 3.8, Cr stable. Micro shows + Blood Cx for E Coli, rita pending Objective Active Medications: Acetaminophen (Tylenol Tab*) 650 mg PO Q4H PRN PRN Reason: FEVER/PAIN Last Admin: 09/09/18 20:08 Dose: 650 mg Albuterol (Ventolin Hfa Inhaler*) 2 puff INH Q6H PRN PRN Reason: SOB/WHEEZING Albuterol/Ipratropium (Duoneb (Albuterol 2.5 Mg/Ipratropium 0.5 Mg)) 1 neb INH Q4H PRN PRN Reason: SOB/WHEEZING Albuterol/Ipratropium (Duoneb (Albuterol 2.5 Mg/Ipratropium 0.5 Mg)) 1 neb INH RT.QID [facility] Last Admin: 09/10/18 11:26 Dose: 1 neb Bupropion HCl (Wellbutrin Sr Tab*) 150 mg PO BID WITH MEALS [facility] Last Admin: 09/10/18 09:38 Dose: 150 mg Clonazepam (Klonopin Tab(*)) 0.5 mg PO BEDTIME [facility] Last Admin: 09/09/18 20:44 Dose: 0.5 mg Folic Acid (Folvite Tab*) 1 mg PO DAILY [facility] Last Admin: 09/10/18 09:39 Dose: 1 mg Gemfibrozil (Lopid Tab*) 600 mg PO BID [facility] Last Admin: 09/10/18 09:39 Dose: 600 mg Sodium Chloride (Ns 0.9% 1000 Ml*) 1,000 mls @ 75 mls/hr IV PER RATE [facility] Last Admin: 09/10/18 11:01 Dose: 75 mls/hr Ceftriaxone Sodium 1 gm/ (Sodium Chloride) 50 mls @ 200 mls/hr IVPB Q24H [facility] Last Admin: 09/09/18 14:59 Dose: 200 mls/hr Diltiazem HCl 125 mg/ Sodium (Chloride) 125 mls @ 5 mls/hr IV Q8H [facility]; Protocol Last Admin: 09/10/18 08:06 Dose: Not Given Metoprolol Tartrate (Lopressor Tab*) 25 mg PO TID [facility] Last Admin: 09/10/18 09:39 Dose: 25 mg Mometasone Furoate/Formoterol Fumar (Dulera 200/5 Mdi*) 2 puff INH BID [facility]; Protocol Last Admin: 09/10/18 09:11 Dose: 2 puff Ondansetron HCl (Zofran Inj*) 4 mg IV Q6H PRN PRN Reason: NAUSEA Last Admin: 09/09/18 20:08 Dose: 4 mg Pantoprazole Sodium (Protonix Tab (Nf)) 40 mg PO BID [facility] Last Admin: 09/10/18 09:39 Dose: 40 mg Rivaroxaban (Xarelto(*)) 20 mg PO DAILY [facility] Last Admin: 09/10/18 09:39 Dose: 20 mg Tamsulosin HCl (Flomax Cap*) 0.4 mg PO DAILY [facility] Last Admin: 09/10/18 09:39 Dose: 0.4 mg Terazosin HCl (Hytrin Cap*) 1 mg PO BEDTIME [facility] Last Admin: 09/09/18 20:44 Dose: 1 mg Vital Signs - 8 hr 09/10/18 09/10/18 09/10/18 04:30 05:00 05:01 Temperature Pulse Rate 89 90 90 Respiratory 16 24 20 Rate Blood Pressure 112/69 112/75 (mmHg) O2 Sat by Pulse 96 94 95 Oximetry 09/10/18 09/10/18 09/10/18 05:36 06:00 06:30 Temperature Pulse Rate 90 91 87 Respiratory 18 21 17 Rate Blood Pressure 108/71 102/67 112/71 (mmHg) O2 Sat by Pulse 96 97 98 Oximetry 09/10/18 09/10/18 09/10/18 07:00 07:31 07:51 Temperature 98.1 F Pulse Rate 93 102 Respiratory 19 24 Rate Blood Pressure 111/66 96/59 (mmHg) O2 Sat by Pulse 97 90 Oximetry 09/10/18 09/10/18 09/10/18 08:00 08:30 08:59 Temperature Pulse Rate 98 105 110 Respiratory 21 21 23 Rate Blood Pressure 107/67 114/78 (mmHg) O2 Sat by Pulse 92 94 99 Oximetry 09/10/18 09/10/18 09/10/18 09:00 09:31 10:00 Temperature Pulse Rate 111 111 105 Respiratory 18 17 23 Rate Blood Pressure 113/71 99/66 94/68 (mmHg) O2 Sat by Pulse 94 94 97 Oximetry 09/10/18 09/10/18 09/10/18 10:30 11:00 12:00 Temperature 98.4 F Pulse Rate 102 100 Respiratory 23 22 Rate Blood Pressure 95/69 104/65 (mmHg) O2 Sat by Pulse 92 96 Oximetry Oxygen Devices in Use Now: Nasal Cannula Appearance: fatigued appearing man in NAD laying in bed, awake and alert and follows commands Eyes: No Scleral Icterus, PERRLA Ears/Nose/Mouth/Throat: - - Poor dentition Neck: NL Appearance and Movements; NL JVP Respiratory: Symmetrical Chest Expansion and Respiratory Effort, - - Scant crackles at blt bases that clear with inspiration Cardiovascular: RRR, - - TRUMAN 2/6 best heard LUSB Abdominal: NL Sounds; No Tenderness; No Distention Extremities: No Edema Skin: No Rash or Ulcers Neurological: Alert and Oriented x 3 Result Diagrams: 09/10/18 05:00 09/10/18 05:00 Microbiology and Other Data: Microbiology 09/09/18 12:40 Urine Culture - Preliminary Urine Escherichia Coli 09/09/18 14:40 Aerobic Blood Culture - Preliminary Blood Venous Escherichia Coli Anaerobic Blood Culture - Preliminary Escherichia Coli 09/09/18 14:40 Aerobic Blood Culture - Preliminary Blood Venous Escherichia Coli Anaerobic Blood Culture - Preliminary Escherichia Coli 09/09/18 14:07 Nasal Screen MRSA (PCR) - Final Nasal Mrsa Not Detected Diagnostic Imagin/13: CXR with small R pleural effusion otherwise no acute pulm process 09/10 TTE EF 50-55% estimated, mild Assess/Plan/Problems-Billing Assessment: 73 yo M with PMH HTN, HLD, COPD, A Flutter on AC, BPH, anxiety, GERD, who presented to the emergency room in [facility] with RVR, sepsis, and UTI, his hospital course b/c E Coli Bacteremia, new hypoxia. His HR has improved with Diltiazem gtt, and his VSS have improved with treatment. - Patient Problems (1) Atrial flutter Current Visit: Yes Status: Acute Code(s): I48.92 - UNSPECIFIED ATRIAL FLUTTER SNOMED Code(s): 0921252 Comment: Initially in RVR, now remains in flutter at HR of 80s-90s -DC Dilt GTT -Home dose of Cardizem 180mg, split into 30mg IR q 6 hr at this time -Continue Metoprolol 25 TID dosing -Remains on AC with home Rivoraxaban for CHADS Vasc > 3 -Stable to xfer to tele medicine -Mag at 1.7, order 1 gm Mag IV x 1 (2) E coli bacteremia Current Visit: Yes Status: Acute Code(s): R78.81 - BACTEREMIA SNOMED Code( s): 682157134740 Comment: 2/2 UTI. Continue Ceftriaxone q 24 hours, remains afebrile since PM -Monitor for susceptibilites (3) UTI (urinary tract infection) Current Visit: Yes Status: Acute Comment: As per above, continue treatment with Ceftriaxone, await susceptibilites (4) Sepsis Current Visit: Yes Status: Acute Comment: Hypotension improving, trend lactate, MAP > 65 -Continue abx and NS at 75cc, if hypoxia remains d/c fluids if PO intake improves (5) Hypoxia Current Visit: Yes Status: Acute Code(s): R09.02 - HYPOXEMIA SNOMED Code(s ): 734917603 Comment: New onset this morning, ? 2/2 to atelectasis and small plerual effusion -Transfer to floor and attempt to mobilize, CXR 09/11 if no improvement (6) Anemia Current Visit: Yes Status: Acute Code(s): D64.9 - ANEMIA, UNSPECIFIED SNOMED Code(s): 831789299 Comment: Appears dilutional with H/H from baseline of -CTM (7) HTN (hypertension) Current Visit: No Status: Acute Code(s): I10 - ESSENTIAL (PRIMARY) HYPERTENSION SNOMED Code(s): 06015946 Comment: Normotensive, continue Cardizem and Metoprolol short acting right now given recent sepsis (8) COPD (chronic obstructive pulmonary disease) Current Visit: No Status: Acute Code(s): J44.9 - CHRONIC OBSTRUCTIVE PULMONARY DISEASE, UNSPECIFIED SNOMED Code(s): 37900229 Comment: Continue Duoneb PRN, maintenance inhalers. Wean Oxygen. No e/o acute exacerbation. (9) HLD (hyperlipidemia) Current Visit: No Status: Acute Code(s): E78.5 - HYPERLIPIDEMIA, UNSPECIFIED SNOMED Code(s): 53238236 Comment: Continue home Gemfibrizol (10) Anxiety Current Visit: Yes Status: Acute Code(s): F41.9 - ANXIETY DISORDER, UNSPECIFIED SNOMED Code(s): 22342149 Comment: Remains on home Wellbutrin 150 BID and nightly Clonazepam 0.5mg (11) BPH (benign prostatic hyperplasia) Current Visit: Yes Status: Acute Code(s): N40.0 - BENIGN PROSTATIC HYPERPLASIA WITHOUT LOWER URINRY TRACT SYMP SNOMED Code(s): 320460385 Comment: Remains on home terazosin and tamsulosin (12) DVT prophylaxis Current Visit: No Status: Acute Code(s): RDY1024 - SNOMED Code(s): 336348722 Comment: Remains on Rivoraxaban
[2018-09-10] MEDS: Diltiazem TAB* 30 MG PO SCH ×2 (12:59→16:59)
[2018-09-10] MEDS ORDERED: Magnesium Sulfate 1 GM IV* 1 GM/100 ML BAG IV ONE (13:00)
[2018-09-10] MEDS: cefTRIAXone(*) 1 GM in NS 0.9% 50 ML* 50 ML IVPB SCH (15:10)
[2018-09-10] MEDS: clonazePAM TAB(*) 0.5 MG PO SCH (21:08)
[2018-09-10] MEDS: Terazosin CAP* 1 MG PO SCH (21:09)
[2018-09-11] MEDS: Diltiazem TAB* 30 MG PO SCH ×4 (00:38→17:27)
[2018-09-11] MEDS: NS 0.9% 1000 ML* 1,000 ML IV SCH (05:36)
[2018-09-11 06:43] LABS: ABS Basophils 0 10^3/ul (0-0.2); ABS Eosinophils 0.1 10^3/ul (0-0.6); ABS Lymphocytes 0.8 10^3/ul (1.0-4.8); ABS Monocytes 0.9 10^3/ul (0-0.8); ABS Neutrophils 10.2 10^3/ul (1.5-7.7); ABS Nucleated RBC 0 10^3/ul; Eosinophil % 0.9 %; Hematocrit 33 % (42-52); Hemoglobin 10.5 g/dl (14.0-18.0); Lymphocyte % 6.4 %; Mean Corpuscular HGB Conc 32 g/dl (31-36); Mean Corpuscular Hemoglobin 25 pg (27-31); Mean Corpuscular Volume 79 fL (80-94); Mean Platelet Volume 9.7 fL (7.4-10.4); Nucleated Red Blood Cells % 0; Platelet Count 299 10^3/ul (150-450); Red Blood Count 4.17 10^6/ul (4.00-5.40); Red Cell Distribution Width 16 % (10.5-15)
[2018-09-11 06:57] LABS: Albumin 2.1 g/dL (3.2-5.2); Albumin/Globulin Ratio 0.7 (1-3); BUN/Creatinine Ratio 26.7 (8-20); Calcium 8.1 mg/dL (8.6-10.3); EGFR Non-African American 86.9 (>60); Magnesium 1.7 mg/dL (1.9-2.7); Phosphorus 2.8 mg/dL (2.5-5.0); Potassium 4.1 mmol/L (3.5-5.0); Total Bilirubin 0.8 mg/dL (0.2-1.0); Total Protein 5.1 g/dL (6.4-8.9)
[2018-09-11] MEDS: Mometasone/Formoter 200/5 MDI INH SCH ×2 (07:34→21:03)
[2018-09-11] MEDS: Albuterol/Ipratropium NEB.SOL* Albuterol 2.5 MG/Ipratropium 0.5 MG 3 ML INH SCH ×3 (07:34→20:32)
--- NOTE | 2018-09-11 08:05 | PN ---
Subjective Date of Service: 09/11/18 Interval History: HD #3 09/11/18 73 yo M with PMh a flutter who was admitted with a flutter in R and found to be septic with UTI and E Coli bacteremia, transfer from ICU on 09/10 Overnight, no acute events. VS: T max 98.9, HR 90-100 in flutter BP 101-103/60- 63 99% on 2L NC. Labs improving this morning, LA neg. He is making urine, no e/ o BM, adequate PO intake This morning he reports feeling much better, much more like himself, AOX4. He has no complaints, he would like to take a shower. Objective Active Medications: Acetaminophen (Tylenol Tab*) 650 mg PO Q4H PRN PRN Reason: FEVER/PAIN Last Admin: 09/09/18 20:08 Dose: 650 mg Albuterol (Ventolin Hfa Inhaler*) 2 puff INH Q6H PRN PRN Reason: SOB/WHEEZING Albuterol/Ipratropium (Duoneb (Albuterol 2.5 Mg/Ipratropium 0.5 Mg)) 1 neb INH Q4H PRN PRN Reason: SOB/WHEEZING Albuterol/Ipratropium (Duoneb (Albuterol 2.5 Mg/Ipratropium 0.5 Mg)) 1 neb INH [id number] AWAKE [facility] Bupropion HCl (Wellbutrin Sr Tab*) 150 mg PO BID WITH MEALS [facility] Last Admin: 09/10/18 16:59 Dose: 150 mg Clonazepam (Klonopin Tab(*)) 0.5 mg PO BEDTIME JEANNE Last Admin: 09/10/18 21:08 Dose: 0.5 mg Diltiazem HCl (Cardizem Tab*) 30 mg PO Q6HR JEANNE Last Admin: 09/11/18 05:35 Dose: 30 mg Folic Acid (Folvite Tab*) 1 mg PO DAILY JEANNE Last Admin: 09/10/18 09:39 Dose: 1 mg Gemfibrozil (Lopid Tab*) 600 mg PO BID [facility] Last Admin: 09/10/18 21:09 Dose: 600 mg Sodium Chloride (Ns 0.9% 1000 Ml*) 1,000 mls @ 75 mls/hr IV PER RATE [facility] Last Admin: 09/11/18 05:36 Dose: 75 mls/hr Ceftriaxone Sodium 1 gm/ (Sodium Chloride) 50 mls @ 200 mls/hr IVPB Q24H [facility] Last Admin: 09/10/18 15:10 Dose: 200 mls/hr Metoprolol Tartrate (Lopressor Tab*) 25 mg PO TID [facility] Last Admin: 09/10/18 21:09 Dose: 25 mg Mometasone Furoate/Formoterol Fumar (Dulera 200/5 Mdi*) 2 puff INH BID [facility]; Protocol Last Admin: 09/11/18 07:34 Dose: 2 puff Ondansetron HCl (Zofran Inj*) 4 mg IV Q6H PRN PRN Reason: NAUSEA Last Admin: 09/09/18 20:08 Dose: 4 mg Pantoprazole Sodium (Protonix Tab (Nf)) 40 mg PO BID [facility] Last Admin: 09/10/18 21:09 Dose: 40 mg Rivaroxaban (Xarelto(*)) 20 mg PO DAILY [facility] Last Admin: 09/10/18 09:39 Dose: 20 mg Tamsulosin HCl (Flomax Cap*) 0.4 mg PO DAILY [facility] Last Admin: 09/10/18 09:39 Dose: 0.4 mg Terazosin HCl (Hytrin Cap*) 1 mg PO BEDTIME [facility] Last Admin: 09/10/18 21:09 Dose: 1 mg Vital Signs - 8 hr 09/11/18 09/11/18 09/11/18 00:30 03:26 07:27 Temperature 98.1 F 97.7 F Pulse Rate 101 99 Respiratory 20 16 18 Rate Blood Pressure 101/60 103/63 (mmHg) O2 Sat by Pulse 97 99 Oximetry 09/11/18 07:37 Temperature Pulse Rate 91 Respiratory 16 Rate Blood Pressure (mmHg) O2 Sat by Pulse 96 Oximetry Oxygen Devices in Use Now: Nasal Cannula - at 2L Appearance: Elderly gentleman in bed in NAD Eyes: No Scleral Icterus, PERRLA Ears/Nose/Mouth/Throat: NL Teeth, Lips, Gums, Mucous Membranes Moist, - - Fair to poor dentition Neck: NL Appearance and Movements; NL JVP Respiratory: Symmetrical Chest Expansion and Respiratory Effort, Clear to Auscultation Cardiovascular: NL Sounds; No Murmurs; No JVD, - - regular irregular with systolic ejection murmur 3/6 Abdominal: NL Sounds; No Tenderness; No Distention Lymphatic: No Cervical Adenopathy Extremities: No Edema Skin: No Rash or Ulcers Neurological: Alert and Oriented x 3 Result Diagrams: 09/11/18 06:08 09/11/18 06:08 Additional Lab and Data: Lactic Acid 0.7 Microbiology and Other Data: Microbiology 09/09/18 12:40 Urine Culture - Preliminary Urine Escherichia Coli 09/09/18 14:40 Aerobic Blood Culture - Preliminary Blood Venous Escherichia Coli Anaerobic Blood Culture - Preliminary Escherichia Coli 09/09/18 14:40 Aerobic Blood Culture - Preliminary Blood Venous Escherichia Coli Anaerobic Blood Culture - Preliminary Escherichia Coli 09/09/18 14:07 Nasal Screen MRSA (PCR) - Final Nasal Mrsa Not Detected Diagnostic Imagin/13: CXR with small R pleural effusion otherwise no acute pulm process 09/10 TTE EF 50-55% estimated, mild Assess/Plan/Problems-Billing Assessment: 73 yo M with PMH HTN, HLD, COPD, A Flutter on AC, BPH, anxiety, GERD, who presented to the emergency room in [facility] with RVR, sepsis, and UTI, his hospital course b/c E Coli Bacteremia, new hypoxia. Transferred from ICU on after HR stabilized with Dilt gtt, now tolerating PO. - Patient Problems (1) Atrial flutter Current Visit: Yes Status: Acute Code(s): I48.92 - UNSPECIFIED ATRIAL FLUTTER SNOMED Code(s): 4398243 Comment: Initially in RVR, now remains in flutter at HR of 80s-90s -Home dose of Cardizem 180mg, split into 30mg IR q 6 hr at this time, -Continue Metoprolol 25 TID dosing -Remains on AC with home Rivoraxaban for CHADS Vasc > 3 -Mag at 1.7, order 1 gm Mag IV x 1 (2) E coli bacteremia Current Visit: Yes Status: Acute Code(s): R78.81 - BACTEREMIA SNOMED Code( s): 361938178613 Comment: 2/2 UTI. Continue Ceftriaxone q 24 hours, remains afebrile since PM -Mendez susceptible, will change to PO when closer to d/c -Repeat blood cultures (3) UTI (urinary tract infection) Current Visit: Yes Status: Acute Comment: As per above, continue treatment with Ceftriaxone (4) Sepsis Current Visit: Yes Status: Acute Comment: Hypotension improving, trend lactate, MAP > 65 -Continue abx, d/c NS at 755 cc this afternoon, stop time of 11AM (5) Hypoxia Current Visit: Yes Status: Acute Code(s): R09.02 - HYPOXEMIA SNOMED Code(s ): 025735258 Comment: New onset this morning, ? 2/2 to atelectasis and small plerual effusion -Transfer to floor and attempt to mobilize, CXR 09/11 if no improvement (6) Anemia Current Visit: Yes Status: Acute Code(s): D64.9 - ANEMIA, UNSPECIFIED SNOMED Code(s): 967063022 Comment: Appears dilutional with H/H from baseline of -CTM (7) HTN (hypertension) Current Visit: No Status: Acute Code(s): I10 - ESSENTIAL (PRIMARY) HYPERTENSION SNOMED Code(s): 30067880 Comment: Normotensive, continue Cardizem and Metoprolol short acting right now given recent sepsis (8) COPD (chronic obstructive pulmonary disease) Current Visit: No Status: Acute Code(s): J44.9 - CHRONIC OBSTRUCTIVE PULMONARY DISEASE, UNSPECIFIED SNOMED Code(s): 22711647 Comment: Continue Duoneb PRN, maintenance inhalers. Wean Oxygen. No e/o acute exacerbation. (9) HLD (hyperlipidemia) Current Visit: No Status: Acute Code(s): E78.5 - HYPERLIPIDEMIA, UNSPECIFIED SNOMED Code(s): 13990680 Comment: Continue home Gemfibrizol (10) Anxiety Current Visit: Yes Status: Acute Code(s): F41.9 - ANXIETY DISORDER, UNSPECIFIED SNOMED Code(s): 82955498 Comment: Remains on home Wellbutrin 150 BID and nightly Clonazepam 0.5mg (11) BPH (benign prostatic hyperplasia) Current Visit: Yes Status: Acute Code(s): N40.0 - BENIGN PROSTATIC HYPERPLASIA WITHOUT LOWER URINRY TRACT SYMP SNOMED Code(s): 692385973 Comment: Remains on home terazosin and tamsulosin (12) DVT prophylaxis Current Visit: No Status: Acute Code(s): PTX8692 - SNOMED Code(s): 144652561 Comment: Remains on Rivoraxaban Status and Disposition: Inpatient
[2018-09-11] MEDS: Rivaroxaban TAB(*) 20 MG TAB PO SCH (09:09)
[2018-09-11] MEDS: Tamsulosin CAP* 0.4 MG PO SCH (09:09)
[2018-09-11] MEDS: Metoprolol Tartrate TAB* 25 MG PO SCH ×3 (09:10→20:36)
[2018-09-11] MEDS: buPROPion SR TAB.SR* 150 MG PO SCH ×2 (09:10→16:56)
[2018-09-11] MEDS: Folic Acid TAB* 1 MG PO SCH (09:10)
[2018-09-11] MEDS: Pantoprazole TAB * 40 MG TAB PO SCH ×2 (09:10→20:36)
[2018-09-11] MEDS: Gemfibrozil TAB* 600 MG PO SCH ×2 (09:11→20:36)
[2018-09-11] MEDS: cefTRIAXone(*) 1 GM in NS 0.9% 50 ML* 50 ML IVPB SCH (15:35)
[2018-09-11] MEDS: Magnesium Oxide TAB* 400 MG PO SCH (16:56)
[2018-09-11] MEDS: clonazePAM TAB(*) 0.5 MG PO SCH (20:36)
[2018-09-11] MEDS: Terazosin CAP* 1 MG PO SCH (20:36)
[2018-09-12] MEDS: Diltiazem TAB* 30 MG PO SCH ×4 (00:22→18:27)
[2018-09-12] MEDS: Albuterol/Ipratropium NEB.SOL* Albuterol 2.5 MG/Ipratropium 0.5 MG 3 ML INH SCH ×4 (01:26→20:01)
[2018-09-12 06:41] LABS: ABS Basophils 0 10^3/ul (0-0.2); ABS Eosinophils 0.2 10^3/ul (0-0.6); ABS Lymphocytes 0.9 10^3/ul (1.0-4.8); ABS Monocytes 0.8 10^3/ul (0-0.8); ABS Neutrophils 8.5 10^3/ul (1.5-7.7); ABS Nucleated RBC 0 10^3/ul; Eosinophil % 1.5 %; Hematocrit 31 % (42-52); Hemoglobin 10.2 g/dl (14.0-18.0); Lymphocyte % 8.3 %; Mean Corpuscular HGB Conc 33 g/dl (31-36); Mean Corpuscular Hemoglobin 25 pg (27-31); Mean Corpuscular Volume 78 fL (80-94); Mean Platelet Volume 9.5 fL (7.4-10.4); Nucleated Red Blood Cells % 0; Platelet Count 323 10^3/ul (150-450); Red Cell Distribution Width 16 % (10.5-15); White Blood Count 10.3 10^3/ul (3.5-10.8)
[2018-09-12 06:59] LABS: BUN/Creatinine Ratio 23.1 (8-20); Calcium 8.6 mg/dL (8.6-10.3); EGFR Non-African American 97.3 (>60); Potassium 4.5 mmol/L (3.5-5.0)
--- NOTE | 2018-09-12 07:39 | PN ---
Subjective Date of Service: 09/12/18 Interval History: HD # 4 on 09/12/18 73 yo M admitted with aflutter in RVR with sepsis and UTI with E Coli Bacteremia , xfed from ICU on 09/10 Overnight no acute events, T max 97.5 HR 51-95 95% on 2L NC 107-108/60-63, voiding and having BM, tolerating diet. Was able to shower, worked with PT yesterday and easily fatigued, will likely need STR. This morning plesant sitting up in chair, has NC back on but with discussion says he and his PCP have been discussing borderline home O2 for some time. Willing to work with PT, no other complaints, no pain, ROS neg. Objective Active Medications: Acetaminophen (Tylenol Tab*) 650 mg PO Q4H PRN PRN Reason: FEVER/PAIN Last Admin: 09/09/18 20:08 Dose: 650 mg Albuterol (Ventolin Hfa Inhaler*) 2 puff INH Q6H PRN PRN Reason: SOB/WHEEZING Albuterol/Ipratropium (Duoneb (Albuterol 2.5 Mg/Ipratropium 0.5 Mg)) 1 neb INH Q4H PRN PRN Reason: SOB/WHEEZING Albuterol/Ipratropium (Duoneb (Albuterol 2.5 Mg/Ipratropium 0.5 Mg)) 1 neb INH [id number] AWAKE [facility] Last Admin: 09/12/18 01:26 Dose: Not Given Bupropion HCl (Wellbutrin Sr Tab*) 150 mg PO BID WITH MEALS [facility] Last Admin: 09/11/18 16:56 Dose: 150 mg Clonazepam (Klonopin Tab(*)) 0.5 mg PO BEDTIME [facility] Last Admin: 09/11/18 20:36 Dose: 0.5 mg Diltiazem HCl (Cardizem Tab*) 30 mg PO Q6HR [facility] Last Admin: 09/12/18 05:25 Dose: 30 mg Folic Acid (Folvite Tab*) 1 mg PO DAILY [facility] Last Admin: 09/11/18 09:10 Dose: 1 mg Gemfibrozil (Lopid Tab*) 600 mg PO BID [facility] Last Admin: 09/11/18 20:36 Dose: 600 mg Ceftriaxone Sodium 1 gm/ (Sodium Chloride) 50 mls @ 200 mls/hr IVPB Q24H [facility] Last Admin: 09/11/18 15:35 Dose: 200 mls/hr Magnesium Oxide (Magox 400 Tab*) 400 mg PO DAILY [facility] Last Admin: 09/11/18 16:56 Dose: 400 mg Metoprolol Tartrate (Lopressor Tab*) 25 mg PO BID [facility] Mometasone Furoate/Formoterol Fumar (Dulera 200/5 Mdi*) 2 puff INH BID [facility]; Protocol Last Admin: 09/11/18 21:03 Dose: 2 puff Ondansetron HCl (Zofran Inj*) 4 mg IV Q6H PRN PRN Reason: NAUSEA Last Admin: 09/09/18 20:08 Dose: 4 mg Pantoprazole Sodium (Protonix Tab (Nf)) 40 mg PO BID [facility] Last Admin: 09/11/18 20:36 Dose: 40 mg Rivaroxaban (Xarelto(*)) 20 mg PO DAILY [facility] Last Admin: 09/11/18 09:09 Dose: 20 mg Tamsulosin HCl (Flomax Cap*) 0.4 mg PO DAILY [facility] Last Admin: 09/11/18 09:09 Dose: 0.4 mg Terazosin HCl (Hytrin Cap*) 1 mg PO BEDTIME [facility] Last Admin: 09/11/18 20:36 Dose: 1 mg Vital Signs - 8 hr 09/12/18 03:39 Temperature 97.5 F Pulse Rate 63 Respiratory 20 Rate Blood Pressure 107/63 (mmHg) O2 Sat by Pulse 92 Oximetry Oxygen Devices in Use Now: Nasal Cannula Appearance: Well appearing man in chair Ears/Nose/Mouth/Throat: NL Teeth, Lips, Gums, Mucous Membranes Moist Neck: NL Appearance and Movements; NL JVP Respiratory: Symmetrical Chest Expansion and Respiratory Effort, - - Scattered wheezes, scant crackles at bases Cardiovascular: RRR, - - TRUMAN 3/6 LUSB Lymphatic: No Cervical Adenopathy Extremities: No Edema Neurological: Alert and Oriented x 3 Result Diagrams: 09/12/18 06:07 09/12/18 06:07 Additional Lab and Data: Lactic Acid 0.7 Microbiology and Other Data: Microbiology 09/09/18 12:40 Urine Culture - Preliminary Urine Escherichia Coli 09/09/18 14:40 Aerobic Blood Culture - Preliminary Blood Venous Escherichia Coli Anaerobic Blood Culture - Preliminary Escherichia Coli 09/09/18 14:40 Aerobic Blood Culture - Preliminary Blood Venous Escherichia Coli Anaerobic Blood Culture - Preliminary Escherichia Coli 09/09/18 14:07 Nasal Screen MRSA (PCR) - Final Nasal Mrsa Not Detected Diagnostic Imagin/13: CXR with small R pleural effusion otherwise no acute pulm process 09/10 TTE EF 50-55% estimated, mild EKG Data: Tele: Remains in flutter Assess/Plan/Problems-Billing Assessment: 73 yo M with PMH HTN, HLD, COPD, A Flutter on AC, BPH, anxiety, GERD, who presented to the emergency room in [facility] with RVR, sepsis, and UTI, his hospital course b/c E Coli Bacteremia, new hypoxia. Transferred from ICU on after HR stabilized with Dilt gtt, now tolerating PO. - Patient Problems (1) Atrial flutter Current Visit: Yes Status: Acute Code(s): I48.92 - UNSPECIFIED ATRIAL FLUTTER SNOMED Code(s): 1821125 Comment: Initially in RVR, now remains in flutter at HR of 80s-90s - Home dose of Cardizem 180mg, split into 30mg IR q 6 hr at this time, will change to home PO dose for tomorrow if remains in house - Continue Metoprolol 25, lower from TID to BID given mildly low BP and HR in the 50s - Remains on AC with home Rivoraxaban for CHADS Vasc > 3 (2) E coli bacteremia Current Visit: Yes Status: Acute Code(s): R78.81 - BACTEREMIA SNOMED Code( s): 546510012916 Comment: 2/2 UTI. Continue Ceftriaxone q 24 hours, remains afebrile since PM - Day / on 09/02 - Mendez susceptible, will change to PO when closer to d/c - Repeat blood cultures pending, currently NGTD (3) UTI (urinary tract infection) Current Visit: Yes Status: Acute Comment: As per above, continue treatment with Ceftriaxone unitl d/c then d/c on bactrim (4) Sepsis Current Visit: Yes Status: Acute Comment: Hypotension improving, lactate flat - Continue abx, now off of IVF (5) Hypoxia Current Visit: Yes Status: Acute Code(s): R09.02 - HYPOXEMIA SNOMED Code(s ): 285586760 Comment: New onset this morning, ? 2/2 to atelectasis and small plerual effusion as well as underlying COPD, per pt and his home O2 levels around 90-93 - Optimize inhalers - Hold on lasix (6) Anemia Current Visit: Yes Status: Acute Code(s): D64.9 - ANEMIA, UNSPECIFIED SNOMED Code(s): 124463132 Comment: Appears dilutional with H/H from baseline of - CTM (7) HTN (hypertension) Current Visit: No Status: Acute Code(s): I10 - ESSENTIAL (PRIMARY) HYPERTENSION SNOMED Code(s): 92600261 Comment: Normotensive, continue Cardizem and Metoprolol short acting right now given recent sepsis (8) COPD (chronic obstructive pulmonary disease) Current Visit: No Status: Acute Code(s): J44.9 - CHRONIC OBSTRUCTIVE PULMONARY DISEASE, UNSPECIFIED SNOMED Code(s): 77568004 Comment: Continue Duoneb PRN, maintenance inhalers. Wean Oxygen. No e/o acute exacerbation. (9) HLD (hyperlipidemia) Current Visit: No Status: Acute Code(s): E78.5 - HYPERLIPIDEMIA, UNSPECIFIED SNOMED Code(s): 14748201 Comment: Continue home Gemfibrizol (10) Anxiety Current Visit: Yes Status: Acute Code(s): F41.9 - ANXIETY DISORDER, UNSPECIFIED SNOMED Code(s): 88828910 Comment: Remains on home Wellbutrin 150 BID and nightly Clonazepam 0.5mg (11) BPH (benign prostatic hyperplasia) Current Visit: Yes Status: Acute Code(s): N40.0 - BENIGN PROSTATIC HYPERPLASIA WITHOUT LOWER URINRY TRACT SYMP SNOMED Code(s): 751674744 Comment: Remains on home terazosin and tamsulosin (12) DVT prophylaxis Current Visit: No Status: Acute Code(s): PFI7931 - SNOMED Code(s): 849435327 Comment: Remains on Rivoraxaban Status and Disposition: Inpatient, awaiting bed at [facility]
[2018-09-12] MEDS: Mometasone/Formoter 200/5 MDI INH SCH ×2 (07:41→20:01)
[2018-09-12] MEDS: Pantoprazole TAB * 40 MG TAB PO SCH ×2 (10:09→21:16)
[2018-09-12] MEDS: Magnesium Oxide TAB* 400 MG PO SCH (10:09)
[2018-09-12] MEDS: Folic Acid TAB* 1 MG PO SCH (10:09)
[2018-09-12] MEDS: buPROPion SR TAB.SR* 150 MG PO SCH ×2 (10:09→18:27)
[2018-09-12] MEDS: Rivaroxaban TAB(*) 20 MG TAB PO SCH (10:09)
[2018-09-12] MEDS: Metoprolol Tartrate TAB* 25 MG PO SCH ×2 (10:09→21:16)
[2018-09-12] MEDS: Tamsulosin CAP* 0.4 MG PO SCH (10:09)
[2018-09-12] MEDS: Gemfibrozil TAB* 600 MG PO SCH ×2 (10:10→21:16)
[2018-09-12] MEDS: cefTRIAXone(*) 1 GM in NS 0.9% 50 ML* 50 ML IVPB SCH (15:24)
[2018-09-12] MEDS: Terazosin CAP* 1 MG PO SCH (21:16)
[2018-09-12] MEDS: clonazePAM TAB(*) 0.5 MG PO SCH (21:17)
--- NOTE | 2018-09-12 22:36 | DS ---
CC: LUIS Garcia DISCHARGE SUMMARY: DATE OF ADMISSION: 09/09/18 DATE OF DISCHARGE ANTICIPATED: 09/13/18 ATTENDING PHYSICIAN: Catherine Potts MD PRIMARY DIAGNOSES: 1. Atrial flutter with rapid ventricular response. 2. Urinary tract infection. 3. Sepsis. 4. Escherichia coli bacteremia. SECONDARY DIAGNOSES: 1. Chronic obstructive pulmonary disease. 2. Anemia. 3. Hypertension. 4. Hyperlipidemia. 5. Anxiety. 6. Benign prostatic hypertrophy. MEDICATIONS ON DISCHARGE: 1. [place]-3 fatty acids 1 capsule p.o. daily. 2. Tylenol 650 mg p.o. q.4 p.r.n. 3. Albuterol HFA inhaler 2 puffs inhaled q.6 hours p.r.n. for shortness of breath. 4. Albuterol ipratropium nebulizer solution, 1 nebulizer inhaled q.4 hours p.r.n. for shortness of b reath. 5. Budesonide formoterol 160/4.5 two puffs inhaled b.i.d. 6. Bupropion extended release 150 mg p.o. b.i.d. 7. Clonazepam 0.5 mg p.o. at bedtime p.r.n. for anxiety. 8. Diltiazem CD 180 mg p.o. daily. 9. Folic acid 1 mg p.o. daily. 9. Gemfibrozil 600 mg p.o. b.i.d. 10. Metoprolol 25 mg p.o. t.i.d. 11. Omeprazole 20 mg p.o. b.i.d. 12. Rivaroxaban 20 mg p.o. daily. 13. Tamsulosin 0.4 mg p.o. daily. 14. Terazosin 1 mg p.o. at bedtime. 15. Bactrim DS 800/160 one tab p.o. b.i.d. for additional 3 days. The change of meds on discharge in clude: 1. New prescription for Bactrim, double strength 800/160 one tab p.o. b.i.d. for additional 3 days a fter leaving the hospital. HISTORY OF PRESENT ILLNESS AND HOSPITAL COURSE: Gab is a 73-year-old man with a past medical histor y as above noted who presented to the hospital with shortness of breath, nausea, vomiting, and dehydr ation. He had actually been in the hospital in [facility] and was discharged on the , but sin ce being home he had not been eating well. He felt he had a poor appetite. He was having intermitte nt fevers and chills and also said that he was having some abdominal discomfort as well as some sympt omatic palpitations in the emergency room. He was noted to be in Aflutter with rapid ventricular rat e. Aflutter with diffuse ST depressions that were felt to be secondary to his rate. He also had labs that were notable for a mildly elevated lactic acid at 1.1, hypomagnesia, leukocytosis with a white blood cell count of 16, and his T-bili was elevated at 3.5. He had a mild troponin elevation of 0.03. Secondary to his Aflutter with rapid ventricular response, he was admitted to the ICU for diltiazem drip and further monitoring. He also had a UA done in the emergency room that was noted to be with white blood cells, positive leuk esterase, and concerning for infection. While in the emergency room, his problems were addressed as follows: His atrial flutter with rapid r ate, was started on a diltiazem drip, which ultimately slowly controlled his flutter to his ewiiaapaayp ra te of flutter in 80 to 90. He is on chronic anticoagulation with Xarelto. He was transitioned to or al diltiazem on 09/11/18 for his UA. It ultimately was cultured and showed to grow E. coli. He also had blood cultures done and that showed to be positive for E. coli as well. He was treated with cef triaxone. His white blood cell count normalized over the course of his hospitalization and he was af ebrile since hospital day 2. For his elevated lactate and elevated total bili, he was resuscitated w ith fluids aggressively and his lactate trended down by hospital day 2. He was also noted to inciden tally have a systolic heart murmur in the ICU. An echocardiogram was done, which showed mild aortic stenosis; otherwise, it was unremarkable with no valvular pathology. The patient was transferred to the floor on 09/11/18. His home problems of hypertension, hyperlipidemia, anxiety, BPH, and COPD wer e treated per his home medications. His later hospital course was notable for return to baseline men nelli status for improved function, tolerating regular diet, voiding normally. He worked with PT and r emained weak and thus short-term rehabilitation was recommended. In regards to the above ICU problem s, his E. coli bacteremia resolved with negative blood cultures from 09/11/18. His susceptibilities came back to velasquez susceptible and he will be discharged on Bactrim for an additional 3 days for a tota l of 7 days of antibiotics for this. Of note, he has been borderline hypoxic while on the floor. [place] s baseline oxygen levels are between 90 and 92 secondary to his COPD, and he notes that he and his pr imary care provider has has discussions about his low home O2 levels. He has required 2 L of nasal c annula while ambulating, although I suspect he has some atelectasis and a mild small pleural effusion seen on chest x- ray from 09/11/18 from his aggressive volume resuscitation that was resolving witho ut diuresis at this time. I expect that will continue to improve as he continues to mobilize and opt imize on his home inhalers. Furthermore, his hospital course was notable for a mild anemia, which wa s thought to be secondary to his infection as well as dilutional from aggressive fluid resuscitation. PHYSICAL EXAMINATION: On the day of discharge is as follows: He is a pleasant, elderly gentleman si tting in the chair, A and O x4. He is in a regular rhythm, noted to be flutter on the tele at a rate of 80. He has a 3/6 systolic ejection murmur heard best in the left upper sternal border. His lung s are largely clear to auscultation with scattered wheeze and he has very scant crackle at the right base that clears with coughing. He has no cervical adenopathy. He has no edema. He is alert and or iented x3. LABORATORY DATA: His labs on 09/12/18, the day before discharge are an unremarkable BMP and as noted above a mild anemia with H and H of 10.2 and 31, otherwise unremarkable. His imaging done in this h ospitalization included a chest x-ray that as noted showed a small right pleural effusion and otherwi se no acute pulm process on 09/11/18, and an echocardiogram done on 09/10/18, which showed an ejectio n fraction of 50% to 55%, and a mild aortic stenosis. REVIEW OF SYSTEMS: Was done on the day of discharge and was wholly negative for a 10-point review of systems. DISCHARGE PLAN: The discharge plan is to discharge to short-term rehab at [place] to continue to work with PT to increase his strength. TIME SPENT: At discharge was greater than 60 minutes, over half was spent at the bedside counselling the patient and family. All questions were answered and no further questions provided. [id number]/[facility] #: [id number]
[2018-09-13] MEDS: Albuterol/Ipratropium NEB.SOL* Albuterol 2.5 MG/Ipratropium 0.5 MG 3 ML INH SCH ×3 (01:13→13:13)
[2018-09-13] MEDS: Mometasone/Formoter 200/5 MDI INH SCH ×2 (08:50→19:41)
[2018-09-13] MEDS: Folic Acid TAB* 1 MG PO SCH (09:58)
[2018-09-13] MEDS: Diltiazem CD CAP* 180 MG PO SCH (09:58)
[2018-09-13] MEDS: Sulfamethox/Trimethoprim DS 800/160* TAB PO SCH ×2 (09:58→20:04)
[2018-09-13] MEDS: Pantoprazole TAB * 40 MG TAB PO SCH ×2 (09:58→20:04)
[2018-09-13] MEDS: Rivaroxaban TAB(*) 20 MG TAB PO SCH (09:58)
[2018-09-13] MEDS: Gemfibrozil TAB* 600 MG PO SCH ×2 (09:58→20:04)
[2018-09-13] MEDS: Tamsulosin CAP* 0.4 MG PO SCH (09:58)
[2018-09-13] MEDS: Magnesium Oxide TAB* 400 MG PO SCH (09:58)
[2018-09-13] MEDS: Metoprolol Tartrate TAB* 25 MG PO SCH ×2 (09:59→20:04)
[2018-09-13] MEDS: buPROPion SR TAB.SR* 150 MG PO SCH ×2 (10:00→16:17)
--- NOTE | 2018-09-13 14:41 | PN ---
Subjective Date of Service: 09/13/18 Interval History: Patient seen today. no acute events. Available records reviewed. He did have 4 out 4 bottle positive for E-coli, most likely the source is the Bladder and urinary symptoms. no fever today. no chills. Will need to obtain Renal US to rule out obstructive uropathy and PSA to rule out prostatitis Family History: Unchanged from Admission Social History: Unchanged from Admission Objective Active Medications: Acetaminophen (Tylenol Tab*) 650 mg PO Q4H PRN PRN Reason: FEVER/PAIN Last Admin: 09/09/18 20:08 Dose: 650 mg Albuterol (Ventolin Hfa Inhaler*) 2 puff INH Q6H PRN PRN Reason: SOB/WHEEZING Albuterol/Ipratropium (Duoneb (Albuterol 2.5 Mg/Ipratropium 0.5 Mg)) 1 neb INH Q4H PRN PRN Reason: SOB/WHEEZING Bupropion HCl (Wellbutrin Sr Tab*) 150 mg PO BID WITH MEALS [facility] Last Admin: 09/13/18 10:00 Dose: 150 mg Clonazepam (Klonopin Tab(*)) 0.5 mg PO BEDTIME [facility] Last Admin: 09/12/18 21:17 Dose: 0.5 mg Diltiazem HCl (Cardizem Cd Cap*) 180 mg PO DAILY [facility] Last Admin: 09/13/18 09:58 Dose: 180 mg Folic Acid (Folvite Tab*) 1 mg PO DAILY [facility] Last Admin: 09/13/18 09:58 Dose: 1 mg Gemfibrozil (Lopid Tab*) 600 mg PO BID [facility] Last Admin: 09/13/18 09:58 Dose: 600 mg Magnesium Oxide (Magox 400 Tab*) 400 mg PO DAILY [facility] Last Admin: 09/13/18 09:58 Dose: 400 mg Metoprolol Tartrate (Lopressor Tab*) 25 mg PO BID [facility] Last Admin: 09/13/18 09:59 Dose: 25 mg Mometasone Furoate/Formoterol Fumar (Dulera 200/5 Mdi*) 2 puff INH BID [facility]; Protocol Last Admin: 09/13/18 08:50 Dose: 2 puff Ondansetron HCl (Zofran Inj*) 4 mg IV Q6H PRN PRN Reason: NAUSEA Last Admin: 09/09/18 20:08 Dose: 4 mg Pantoprazole Sodium (Protonix Tab (Nf)) 40 mg PO BID [facility] Last Admin: 09/13/18 09:58 Dose: 40 mg Rivaroxaban (Xarelto(*)) 20 mg PO DAILY [facility] Last Admin: 09/13/18 09:58 Dose: 20 mg Tamsulosin HCl (Flomax Cap*) 0.4 mg PO DAILY [facility] Last Admin: 09/13/18 09:58 Dose: 0.4 mg Terazosin HCl (Hytrin Cap*) 1 mg PO BEDTIME [facility] Last Admin: 09/12/18 21:16 Dose: 1 mg Trimethoprim/Sulfamethoxazole (Bactrim Ds 800/160 Tab*) 1 tab PO BID [facility] Last Admin: 09/13/18 09:58 Dose: 1 tab Vital Signs - 8 hr 09/13/18 09/13/18 09/13/18 07:47 08:00 11:13 Temperature 97.6 F 97.4 F Pulse Rate 61 78 49 Respiratory 16 16 16 Rate Blood Pressure 129/74 (mmHg) O2 Sat by Pulse 94 100 95 Oximetry 09/13/18 13:13 Temperature Pulse Rate 79 Respiratory 18 Rate Blood Pressure (mmHg) O2 Sat by Pulse 100 Oximetry Oxygen Devices in Use Now: None Appearance: Awake, Alert. no distress Eyes: No Scleral Icterus, - Ears/Nose/Mouth/Throat: NL Teeth, Lips, Gums, Mucous Membranes Moist Neck: NL Appearance and Movements; NL JVP, Trachea Midline Respiratory: Symmetrical Chest Expansion and Respiratory Effort, Clear to Auscultation Cardiovascular: NL Sounds; No Murmurs; No JVD, RRR, No Edema Abdominal: NL Sounds; No Tenderness; No Distention Extremities: No Edema Skin: No Rash or Ulcers Neurological: Alert and Oriented x 3 Result Diagrams: 09/12/18 06:07 09/12/18 06:07 Additional Lab and Data: Lactic Acid 0.7 Microbiology and Other Data: Microbiology 09/09/18 12:40 Urine Culture - Preliminary Urine Escherichia Coli 09/09/18 14:40 Aerobic Blood Culture - Preliminary Blood Venous Escherichia Coli Anaerobic Blood Culture - Preliminary Escherichia Coli 09/09/18 14:40 Aerobic Blood Culture - Preliminary Blood Venous Escherichia Coli Anaerobic Blood Culture - Preliminary Escherichia Coli 09/09/18 14:07 Nasal Screen MRSA (PCR) - Final Nasal Mrsa Not Detected Diagnostic Imagin/13: CXR with small R pleural effusion otherwise no acute pulm process 09/10 TTE EF 50-55% estimated, mild EKG Data: Tele: Remains in flutter Assess/Plan/Problems-Billing Assessment: 73 yo M with PMH HTN, HLD, COPD, A Flutter on AC, BPH, anxiety, GERD, who presented to the emergency room in [place] with RVR, sepsis, and UTI, his hospital course b/c E Coli Bacteremia, new hypoxia. Transferred from ICU on after HR stabilized with Dilt gtt, now tolerating PO. - Patient Problems (1) BPH (benign prostatic hyperplasia) Current Visit: Yes Status: Acute Code(s): N40.0 - BENIGN PROSTATIC HYPERPLASIA WITHOUT LOWER URINRY TRACT SYMP SNOMED Code(s): 973860666 Comment: - Remains on home terazosin and tamsulosin (2) Sepsis Current Visit: Yes Status: Resolved Comment: - Continue abx, now off of IVF - source is his UTI and bacteremia with E-coli. Repeat BC negative (3) E coli bacteremia Current Visit: Yes Status: Resolved Code(s): R78.81 - BACTEREMIA SNOMED Code(s): 412374513268 Comment: - 2/2 UTI. s/p Ceftriaxone remains afebrile since 09/09 PM - now on bactrim total Coverage now Day # 5 (4) UTI (urinary tract infection) Current Visit: Yes Status: Resolved Comment: - On bactrim now. off ceftriaxone - Will check PSA and renal ultrasound to stratify his abx durations (5) Atrial fibrillation Current Visit: No Status: Acute Code(s): I48.91 - UNSPECIFIED ATRIAL FIBRILLATION SNOMED Code(s): 62544949 Comment: - XCarelto 20 mg daily, Lopressor 25 mg bid, Diltiazem 180 mg daily (6) COPD (chronic obstructive pulmonary disease) Current Visit: No Status: Acute Code(s): J44.9 - CHRONIC OBSTRUCTIVE PULMONARY DISEASE, UNSPECIFIED SNOMED Code(s): 32228852 Comment: Continue Duoneb PRN, maintenance inhalers. Wean Oxygen. No e/o acute exacerbation. (7) HLD (hyperlipidemia) Current Visit: No Status: Acute Code(s): E78.5 - HYPERLIPIDEMIA, UNSPECIFIED SNOMED Code(s): 88643431 Comment: Continue home Gemfibrizol (8) HTN (hypertension) Current Visit: No Status: Acute Code(s): I10 - ESSENTIAL (PRIMARY) HYPERTENSION SNOMED Code(s): 65615307 Comment: Normotensive, continue Cardizem and Metoprolol (9) DVT prophylaxis Current Visit: No Status: Inactive Code(s): RRI2443 - SNOMED Code(s): 116365921 Comment: - Remains on Rivoraxaban Status and Disposition: Inpatient, awaiting bed at [facility]
[2018-09-13] MEDS: Terazosin CAP* 1 MG PO SCH (20:04)
[2018-09-13] MEDS: clonazePAM TAB(*) 0.5 MG PO SCH (20:04)
[2018-09-14] MEDS: Mometasone/Formoter 200/5 MDI INH SCH (07:39)
[2018-09-14 09:33] VITALS: BP 113/71
[2018-09-14] MEDS: Gemfibrozil TAB* 600 MG PO SCH (10:01)
[2018-09-14] MEDS: Sulfamethox/Trimethoprim DS 800/160* TAB PO SCH (10:01)
[2018-09-14] MEDS: Tamsulosin CAP* 0.4 MG PO SCH (10:01)
[2018-09-14] MEDS: Metoprolol Tartrate TAB* 25 MG PO SCH (10:01)
[2018-09-14] MEDS: Rivaroxaban TAB(*) 20 MG TAB PO SCH (10:02)
[2018-09-14] MEDS: buPROPion SR TAB.SR* 150 MG PO SCH (10:02)
[2018-09-14] MEDS: Diltiazem CD CAP* 180 MG PO SCH (10:02)
[2018-09-14] MEDS: Magnesium Oxide TAB* 400 MG PO SCH (10:02)
[2018-09-14] MEDS: Pantoprazole TAB * 40 MG TAB PO SCH (10:02)
[2018-09-14] MEDS: Folic Acid TAB* 1 MG PO SCH (10:03)
--- NOTE | 2018-09-14 11:52 | PN ---
Subjective Date of Service: 09/14/18 Interval History: Patient seen today, doing well. US of kidney was negative for obstruction or hydronephrosis. I did do PSA was 3.57 on 09/12/17! However; patient was already on antibiotics. I did order repeat PSA from Admission however the PSA could not be done. I will treat for UTI and possible prostatitis, hence I will extend the antibiotics for total of 2 weeks durations. Otherwise patient is in no distress Family History: Unchanged from Admission Social History: Unchanged from Admission Objective Active Medications: Acetaminophen (Tylenol Tab*) 650 mg PO Q4H PRN PRN Reason: FEVER/PAIN Last Admin: 09/09/18 20:08 Dose: 650 mg Albuterol (Ventolin Hfa Inhaler*) 2 puff INH Q6H PRN PRN Reason: SOB/WHEEZING Albuterol/Ipratropium (Duoneb (Albuterol 2.5 Mg/Ipratropium 0.5 Mg)) 1 neb INH Q4H PRN PRN Reason: SOB/WHEEZING Last Admin: 09/14/18 07:42 Dose: 1 neb Bupropion HCl (Wellbutrin Sr Tab*) 150 mg PO BID WITH MEALS [facility] Last Admin: 09/14/18 10:02 Dose: 150 mg Clonazepam (Klonopin Tab(*)) 0.5 mg PO BEDTIME [facility] Last Admin: 09/13/18 20:04 Dose: 0.5 mg Diltiazem HCl (Cardizem Cd Cap*) 180 mg PO DAILY [facility] Last Admin: 09/14/18 10:02 Dose: 180 mg Folic Acid (Folvite Tab*) 1 mg PO DAILY [facility] Last Admin: 09/14/18 10:03 Dose: 1 mg Gemfibrozil (Lopid Tab*) 600 mg PO BID [facility] Last Admin: 09/14/18 10:01 Dose: 600 mg Magnesium Oxide (Magox 400 Tab*) 400 mg PO DAILY [facility] Last Admin: 09/14/18 10:02 Dose: 400 mg Metoprolol Tartrate (Lopressor Tab*) 25 mg PO BID [facility] Last Admin: 09/14/18 10:01 Dose: 25 mg Mometasone Furoate/Formoterol Fumar (Dulera 200/5 Mdi*) 2 puff INH BID [facility]; Protocol Last Admin: 09/14/18 07:39 Dose: 2 puff Ondansetron HCl (Zofran Inj*) 4 mg IV Q6H PRN PRN Reason: NAUSEA Last Admin: 09/09/18 20:08 Dose: 4 mg Pantoprazole Sodium (Protonix Tab (Nf)) 40 mg PO BID [facility] Last Admin: 09/14/18 10:02 Dose: 40 mg Rivaroxaban (Xarelto(*)) 20 mg PO DAILY [facility] Last Admin: 09/14/18 10:02 Dose: 20 mg Tamsulosin HCl (Flomax Cap*) 0.4 mg PO DAILY [facility] Last Admin: 09/14/18 10:01 Dose: 0.4 mg Terazosin HCl (Hytrin Cap*) 1 mg PO BEDTIME [facility] Last Admin: 09/13/18 20:04 Dose: 1 mg Trimethoprim/Sulfamethoxazole (Bactrim Ds 800/160 Tab*) 1 tab PO BID [facility] Last Admin: 09/14/18 10:01 Dose: 1 tab Vital Signs - 8 hr 09/14/18 09/14/18 09/14/18 07:36 07:43 08:00 Temperature 97.8 F Pulse Rate 96 86 Respiratory 20 18 20 Rate Blood Pressure 113/71 (mmHg) O2 Sat by Pulse 97 98 Oximetry Oxygen Devices in Use Now: Nasal Cannula Appearance: Awake, Alert. no distress. Stable in good state of mind. Eager to be discharged Eyes: No Scleral Icterus, PERRLA, - - EOMI Ears/Nose/Mouth/Throat: NL Teeth, Lips, Gums, Mucous Membranes Moist Neck: NL Appearance and Movements; NL JVP Respiratory: Symmetrical Chest Expansion and Respiratory Effort, Clear to Auscultation Cardiovascular: NL Sounds; No Murmurs; No JVD, - - irregulaarly irregular Abdominal: NL Sounds; No Tenderness; No Distention Extremities: No Edema Skin: No Rash or Ulcers Neurological: Alert and Oriented x 3 Result Diagrams: 09/12/18 06:07 09/12/18 06:07 Additional Lab and Data: Lactic Acid 0.7 Microbiology and Other Data: Microbiology 09/09/18 12:40 Urine Culture - Preliminary Urine Escherichia Coli 09/09/18 14:40 Aerobic Blood Culture - Preliminary Blood Venous Escherichia Coli Anaerobic Blood Culture - Preliminary Escherichia Coli 09/09/18 14:40 Aerobic Blood Culture - Preliminary Blood Venous Escherichia Coli Anaerobic Blood Culture - Preliminary Escherichia Coli 09/09/18 14:07 Nasal Screen MRSA (PCR) - Final Nasal Mrsa Not Detected Diagnostic Imagin/13: CXR with small R pleural effusion otherwise no acute pulm process 09/10 TTE EF 50-55% estimated, mild EKG Data: Tele: Remains in flutter Assess/Plan/Problems-Billing Assessment: 73 yo M with PMH HTN, HLD, COPD, [place] on AC, BPH, anxiety, GERD, who presented to the emergency room in [facility] with RVR, sepsis, and UTI, his hospital course b/c E Coli Bacteremia, new hypoxia. Transferred from ICU on after HR stabilized with Dilt gtt, now tolerating PO. - Patient Problems (1) Sepsis Current Visit: Yes Status: Resolved Comment: - Continue abx, now off of IVF - source is his UTI and bacteremia with E-coli. Repeat BC negative - On bactrim now. off ceftriaxone - Will PSA was 3.57 on 09/12/18! However; patient was already on antibiotics. I did order repeat or add on PSA from Admission however the PSA could not be done. Hence the PSA from 09/12/18 was partially treated. Hence I will extend antibiotics durations to complete 2 weeks course (2) E coli bacteremia Current Visit: Yes Status: Resolved Code(s): R78.81 - BACTEREMIA SNOMED Code(s): 071531733560 Comment: - 2/2 UTI. s/p Ceftriaxone remains afebrile since 09/09 PM - On bactrim now. off ceftriaxone - Will PSA was 3.57 on 09/12/18! However; patient was already on antibiotics. I did order repeat or add on PSA from Admission however the PSA could not be done. Hence the PSA from 09/12/18 was partially treated. Hence I will extend antibiotics durations to complete 2 weeks course (3) UTI (urinary tract infection) Current Visit: Yes Status: Resolved Comment: - On bactrim now. off ceftriaxone - Will PSA was 3.57 on 09/12/18! However; patient was already on antibiotics. I did order repeat or add on PSA from Admission however the PSA could not be done. Hence the PSA from 09/12/18 was partially treated. Hence I will extend antibiotics durations to complete 2 weeks course (4) Atrial fibrillation Current Visit: No Status: Acute Code(s): I48.91 - UNSPECIFIED ATRIAL FIBRILLATION SNOMED Code(s): 44870455 Comment: - Xarelto 20 mg daily, Lopressor 25 mg bid, Diltiazem 180 mg daily (5) COPD (chronic obstructive pulmonary disease) Current Visit: No Status: Acute Code(s): J44.9 - CHRONIC OBSTRUCTIVE PULMONARY DISEASE, UNSPECIFIED SNOMED Code(s): 98173894 Comment: Continue Duoneb PRN, maintenance inhalers. Wean Oxygen. No e/o acute exacerbation. (6) HLD (hyperlipidemia) Current Visit: No Status: Acute Code(s): E78.5 - HYPERLIPIDEMIA, UNSPECIFIED SNOMED Code(s): 37306724 Comment: Continue home Gemfibrizol (7) HTN (hypertension) Current Visit: No Status: Acute Code(s): I10 - ESSENTIAL (PRIMARY) HYPERTENSION SNOMED Code(s): 56785173 Comment: Normotensive, continue Cardizem and Metoprolol (8) BPH (benign prostatic hyperplasia) Current Visit: Yes Status: Acute Code(s): N40.0 - BENIGN PROSTATIC HYPERPLASIA WITHOUT LOWER URINRY TRACT SYMP SNOMED Code(s): 815889238 Comment: - Remains on home terazosin and tamsulosin (9) DVT prophylaxis Current Visit: No Status: Inactive Code(s): YHT3146 - SNOMED Code(s): 440519671 Comment: - Remains on Rivoraxaban Status and Disposition: Inpatient, awaiting bed at [facility]
--- NOTE | 2018-09-14 11:59 | DCNOTE ---
This is a brief addendum to the discharge summary dictated on 09/12/[address] Catherine Potts. for full details please refer to her discharge summary. Discharge was held by me on 09/13/18 given his history of bacteremia. I did obtain US to rule out obstructive uropathy which was negative. Given the source of UTI was urinary tract infections and in a male patient, I ordered PSA on 09/12/18 which was 3.57 on 09/12/18! However; patient was already on antibiotics. I did order repeat or add on PSA from Admission however the PSA could not be done. Hence the PSA from 09/12/18 was partially treated. Hence I will extend antibiotics durations to complete 2 weeks course. I did extend the bactrim DS bid to complete total course of antibotics of 2 weeks, Hence I requested to continue Bactrim DS for additional 8 more days. Please refer to my progress note from 09/13/18 and 09/14/18 and the discharge summary dictated on 09/12/[address] Catherine Potts
== END 2018-09-14 13:20 | DRG 872 ==
LOC: ED 10:52 → ICU 12:57 → MEDTELE 09-10 13:00
PROVIDERS: ADMIT Pediatrics; ATTEND Internal Medicine
DX: A41.51 Sepsis due to Escherichia coli [E. coli] (principal); I48.92 Unspecified atrial flutter; N39.0 Urinary tract infection, site not specified; J98.11 Atelectasis; J90 Pleural effusion, not elsewhere classified; I95.9 Hypotension, unspecified; J44.9 Chronic obstructive pulmonary disease, unspecified; E86.0 Dehydration; E83.42 Hypomagnesemia; D64.9 Anemia, unspecified; E78.5 Hyperlipidemia, unspecified; I10 Essential (primary) hypertension; N40.0 Benign prostatic hyperplasia without lower urinary tract symptoms; K21.9 Gastro-esophageal reflux disease without esophagitis; R01.1 Cardiac murmur, unspecified; R09.02 Hypoxemia; F41.9 Anxiety disorder, unspecified; F10.21 Alcohol dependence, in remission; Z79.01 Long term (current) use of anticoagulants; Z79.1 Long term (current) use of non-steroidal anti-inflammatories (NSAID); Z79.51 Long term (current) use of inhaled steroids; Z79.899 Other long term (current) drug therapy; Z82.49 Family history of ischemic heart disease and other diseases of the circulatory system; Z83.3 Family history of diabetes mellitus; Z87.891 Personal history of nicotine dependence
CPT/HCPCS: 36415; 71045; 76770; 80048; 80053; 81003; 81015; 82550; 82553; 83605; 83735; 84100; 84153; 84443; 84484; 85025; 85730; 87040; 87077; 87086; 87186; 87205; 87641; 93005; 93306; 94640; 99285; A9270-GY; C8929; G8978-GP-CK; G8979-GP-CI; G8987-GO-CK; G8988-GO-CI; J0696; J2405; J3475

== ENCOUNTER 2019-02-20 20:57 | Emergency (ER) | payer MEDICARE, MEDICAID ==
--- NOTE | 2019-02-20 22:55 | ED ---
Laceration/Wound HPI - HPI Summary HPI Summary: A 73 y/o male accompanied by his presents to [facility] with a chief complaint of cutting his left arm today after tripping over his arm. His visiting nurse referred the patient to the ED. At triage he rated his pain as a 9/10 in severity. The patient reports that they take care of themselves. He notes that he bathes himself. He has a Hx of pneumonia and claims that he is scheduled for heart surgery. - History of Current Complaint Stated Complaint: FALL, LEFT ARM INJURY PER PT Time Seen by Provider: 02/20/19 22:31 Hx Obtained From: Family/Case Maker Onset/Duration: Sudden Onset, Lasting Hours, Still Present Aggravating: Nothing Alleviating: Nothing Timing: Constant Onset Severity: Severe Current Severity: Severe Pain Intensity: 9 Pain Scale Used: 0-10 Numeric Associated Signs & Symptoms: Pain - Additional Pertinent History Primary Care Physician: DAVON - Allergy/Home Medications Allergies/Adverse Reactions: Allergies Allergy/AdvReac Type Severity Reaction Status Date / Time No Known Allergies Allergy Mild See Comment Verified 02/20/19 21:01 PMH/Surg Hx/FS Hx/Imm Hx Endocrine/Hematology History: Denies: Hx Diabetes Cardiovascular History: Reports: Hx Hypercholesterolemia, Hx Hypertension Respiratory History: Reports: Hx Chronic Bronchitis, Hx Chronic Obstructive Pulmonary Disease (COPD), Hx Pneumonia - kid Denies: Hx Asthma GI History: Reports: Hx Gastrointestinal Bleed - 2017 Musculoskeletal History: Reports: Hx Arthritis, Hx Orthopedic Injury - 3 cracked ribs 2012 Sensory History: Reports: Hx Contacts or Glasses Denies: Hx Cataracts - cateracts surg 2018, Hx Hearing Aid Opthamlomology History: Reports: Hx Contacts or Glasses Denies: Hx Cataracts - cateracts surg 2018 - Surgical History Surgery Procedure, Year, and Place: cateracts 2018 Hx Anesthesia Reactions: No Infectious Disease History: No Infectious Disease History: Denies: Traveled Outside the [place] in Last 30 Days - Family History Known Family History: Positive: Cardiac Disease, Hypertension, Other - Hypercholesterolemia - Social History Alcohol Use: None Hx Substance Use: No Substance Use Type: Reports: None Hx Tobacco Use: Yes Smoking Status (MU): Former Smoker Type: Cigarettes Have You Smoked in the Last Year: No Review of Systems Negative: Fever Positive: Other - positive: laceration left arm All Other Systems Reviewed And Are Negative: Yes Physical Exam - Summary Physical Exam Summary: Constitutional: Well-developed, Well-nourished, Alert. (-) Distressed Skin: Warm, Dry, 5cm x 4cm square shaped avulsion on dorsum of left hand, oozing barely, mid forearm 6cm circular contusion, at distal portion 2cm portion avulsion, laceration is superficial and easily approximated. HENT: Normocephalic; Atraumatic Eyes: Conjunctiva normal Neck: Musculoskeletal ROM normal neck. (-) JVD, (-) Stridor, (-) Tracheal deviation Cardio: Rhythm regular, rate normal, Heart sounds normal; Intact distal pulses; The pedal pulses are 2+ and symmetric. Radial pulses are 2+ and symmetric. Pulmonary/Chest wall: Effort normal. (-) Respiratory distress, (-) Wheezes, (-) Rales Abd: Soft, (-) tenderness, (-) Distension, (-) Guarding, (-) Rebound Musculoskeletal: (-) Edema Neuro: Alert, Oriented x3 Psych: Mood and affect Normal Triage Information Reviewed: Yes Vital Signs On Initial Exam: Initial Vitals Temp Pulse Resp BP Pulse Ox 98.6 F 95 16 124/78 93 02/20/19 20:59 02/20/19 20:59 02/20/19 20:59 02/20/19 20:59 02/20/19 20:59 Vital Signs Reviewed: Yes Procedures - Laceration/Wound Repair 1 Location: upper extremity Description: Irregular Anesthesia: Lido Suture Type: Nylon - 4-0 Diagnostics - Vital Signs Vital Signs Temp Pulse Resp BP Pulse Ox 02/20/19 20:59 98.6 F 95 16 124/78 93 - Laboratory Lab Statement: Any lab studies that have been ordered have been reviewed, and results considered in the medical decision making process. Laceration Repair Course/Dx - Course Course Of Treatment: A 73 y/o male accompanied by his presents to [facility] with a chief complaint of cutting his left arm today after tripping over his arm. The physical exam revealed 5cm x 4cm square shaped avulsion on dorsum of left hand, oozing barely, mid forearm 6cm circular contusion, at distal portion 2cm portion avulsion, laceration is superficial and easily approximated. Laceration was repaired and wound was dressed. There was no bleeding through the dressing. INR is theraputic at 2.1 and the patient will be discharged and follow up with his PCP. - Clinical Impression Provider Diagnoses: Laceration, Avulsion of skin Discharge - Sign-Out/Discharge Documenting (check all that apply): Patient Departure - DC Patient Received Moderate/Deep Sedation with Procedure: No - Discharge Plan Condition: Improved Disposition: HOME Patient Education Materials: Laceration (ED) Referrals: Kyle CUMMINGS,Tc Rust [Primary Care Provider] - - Billing Disposition and Condition Condition: IMPROVED Disposition: Home - Attestation Statements Document Initiated by Kariibe: Yes Documenting Scribe: Kumar Palmer Provider For Whom Kariibe is Documenting (Include Credential): Arun Gonzalez MD Scribe Attestation: IKumar scribed for Arun Gonzalez MD on 02/21/19 at 0616. Scribe Documentation Reviewed: Yes Provider Attestation: The documentation as recorded by the Kumar turner accurately reflects the service I personally performed and the decisions made by me, Arun Gonzalez MD Status of Scribe Document: Viewed
[2019-02-20 23:21] LABS: INR 2.17 (0.82-1.09)
[2019-02-21 00:44] VITALS: BP 137/83
== END 2019-02-21 00:39 | disposition home or self-care (01) ==
LOC: ED 20:57
DX: S41.112A Laceration without foreign body of left upper arm, initial encounter (principal); W45.8XXA Other foreign body or object entering through skin, initial encounter; I10 Essential (primary) hypertension; J44.9 Chronic obstructive pulmonary disease, unspecified; Z87.891 Personal history of nicotine dependence
CPT/HCPCS: 12002; 36415; 85610; 99283

== ENCOUNTER 2020-03-25 11:39 | Inpatient (IN) ==
[2020-03-25] MEDS ORDERED: Diltiazem IV push/loading dose 5 MG/ML 5 ML vial (25 mg) IV SLOW PU ONE ×2 (12:05→14:23)
[2020-03-25] MEDS ORDERED: Magnesium Sulfate IV 1GM/100ML 1 GM/100 ML BAG IV ONE (12:06)
[2020-03-25 12:22] LABS: ABS Eosinophils 0.1 10^3/ul (0-0.6); ABS Neutrophils 9.4 10^3/ul (1.5-7.7); Eosinophil % 0.5 %; Hematocrit 38 % (42-52); Lymphocyte % 8.3 %; Mean Corpuscular HGB Conc 32 g/dL (31-36); Mean Corpuscular Hemoglobin 25 pg (27-31); Mean Corpuscular Volume 79 fL (80-94); Mean Platelet Volume 8.8 fL (7.4-10.4); Nucleated Red Blood Cells % 0.1; Platelet Count 217 10^3/uL (150-450); Red Cell Distribution Width 17 % (10-15); White Blood Count 11.5 10^3/uL (3.5-10.8)
[2020-03-25 12:49] LABS: Albumin 3.5 g/dL (3.2-5.2); BUN/Creatinine Ratio 17.9 (8-20); Calcium 8.9 mg/dL (8.6-10.3); EGFR African American 69.4 (>60); EGFR Non-African American 57.4 (>60); Globulin 3.5 g/dL (2-4); Magnesium 1.6 mg/dL (1.9-2.7); Potassium 4.6 mmol/L (3.5-5.0); Total Bilirubin 1.1 mg/dL (0.2-1.0)
[2020-03-25 12:50] LABS: Troponin I 0.02 ng/mL (<0.03)
[2020-03-25] MEDS ORDERED: Magnesium Sulfate 2 gm BAG 2 GM/50 ML BAG IVPB ONE (12:52)
[2020-03-25 15:13] LABS: T4, Total 7.77 mcg/dL (6.09-12.23)
[2020-03-25] MEDS ORDERED: NS 0.9% 1000 ml BAG 1,000 ML IV SCH (15:15)
[2020-03-25 15:17] LABS: TSH Ultra Thyroid Stim Horm 1.86 mcIU/mL (0.34-5.60)
[2020-03-25] MEDS ORDERED: Iodixanol (CONTRAST) 320 MG/ML 100 ML SDV IV ONE (15:24)
[2020-03-25 18:14] LABS: C Reactive Protein 113.7 mg/L (<8.01)
[2020-03-25] MEDS: Mometasone/Formoter 200/5 MDI INH SCH (19:39)
[2020-03-25] MEDS: Gemfibrozil 600 mg PO SCH (20:23)
[2020-03-25] MEDS ORDERED: Diltiazem IV BAG D5W Premix 125 MG/125 ML BAG IV SCH (23:45)
[2020-03-26] MEDS ORDERED: Diltiazem IV BAG D5W Premix 125 MG/125 ML BAG IV SCH ×2 (02:00→05:30)
[2020-03-26 06:05] LABS: BUN/Creatinine Ratio 17.8 (8-20); Calcium 8.7 mg/dL (8.6-10.3); EGFR African American 72.8 (>60); EGFR Non-African American 60.2 (>60); Potassium 5.1 mmol/L (3.5-5.0)
[2020-03-26] MEDS ORDERED: Perflutren Lipid Microsphere 3 ML VIAL ONE (08:05)
[2020-03-26] MEDS: Mometasone/Formoter 200/5 MDI INH SCH ×2 (09:28→20:06)
[2020-03-26] MEDS: Gemfibrozil 600 mg PO SCH ×2 (09:58→19:52)
[2020-03-26] MEDS: cefTRIAXone 1 gm/50 mL NS BAG 1 GM/50 ML BAG IVPB SCH (11:00)
[2020-03-26] MEDS ORDERED: NS 0.9% 250 ml 250 ML IV ONE (11:42)
[2020-03-26] MEDS: Azithromycin 500 mg/250 ml NS 500 MG/250 ML BAG IVPB SCH (11:57)
[2020-03-26] MEDS ORDERED: NS 0.9% 500 ml BAG 500 ML IV ONE ×2 (12:21→23:51)
[2020-03-26] MEDS: NS 0.9% 1000 ml BAG 1,000 ML IV SCH (13:38)
[2020-03-26] MEDS ORDERED: Prochlorperazine 5 mg/ml 2 ml VIAL (10 mg) IV PRN (17:33)
[2020-03-26] MEDS ORDERED: Metoprolol Tartrate 5 mg VIAL 5 ml VIAL (1 mg/ml) IV PRN (22:03)
[2020-03-26] MEDS ORDERED: NS 0.9% 500 ml BAG 500 ML IV SCH (23:45)
[2020-03-27] MEDS: NS 0.9% 1000 ml BAG 1,000 ML IV SCH ×3 (01:02→20:28)
[2020-03-27] MEDS ORDERED: Metoprolol Tartrate 5 mg VIAL 5 ml VIAL (1 mg/ml) IV ONE (02:28)
[2020-03-27] MEDS: Metoprolol Tartrate 5 mg VIAL 5 ml VIAL (1 mg/ml) IV PRN (03:56)
[2020-03-27] MEDS ORDERED: Diltiazem IV push/loading dose 5 MG/ML 5 ML vial (25 mg) IV SLOW PU ONE (05:14)
[2020-03-27 05:24] LABS: ABS Lymphocytes 0.5 10^3/ul (1.0-4.8); ABS Monocytes 0.8 10^3/ul (0-0.8); ABS Neutrophils 8.8 10^3/ul (1.5-7.7); Eosinophil % 0.3 %; Hematocrit 33 % (42-52); Hemoglobin 10.8 g/dL (14.0-18.0); Lymphocyte % 4.8 %; Mean Corpuscular HGB Conc 33 g/dL (31-36); Mean Corpuscular Hemoglobin 25 pg (27-31); Mean Corpuscular Volume 78 fL (80-94); Mean Platelet Volume 8.8 fL (7.4-10.4); Nucleated Red Blood Cells % 0.1; Platelet Count 142 10^3/uL (150-450); Red Blood Count 4.25 10^6 /uL (4.18-5.48); Red Cell Distribution Width 17 % (10-15); White Blood Count 10.2 10^3/uL (3.5-10.8)
[2020-03-27 05:41] LABS: Calcium 8.1 mg/dL (8.6-10.3)
[2020-03-27 05:47] LABS: BUN/Creatinine Ratio 17.7 (8-20); EGFR African American 76.5 (>60); EGFR Non-African American 63.3 (>60)
[2020-03-27] MEDS: Gemfibrozil 600 mg PO SCH ×2 (08:11→20:29)
[2020-03-27] MEDS: Mometasone/Formoter 200/5 MDI INH SCH ×2 (08:14→19:08)
[2020-03-27] MEDS: cefTRIAXone 1 gm/50 mL NS BAG 1 GM/50 ML BAG IVPB SCH (08:16)
[2020-03-27] MEDS: Azithromycin 500 mg/250 ml NS 500 MG/250 ML BAG IVPB SCH (09:45)
[2020-03-27 14:22] LABS: Urine Appearance Cloudy; Urine Bilirubin Negative (Negative); Urine Blood 2+ (Negative); Urine Color Yellow; Urine Glucose Negative (Negative); Urine Ketones Negative (Negative); Urine Nitrite Positive (Negative); Urine Protein 1+(30 mg/dL) (Negative); Urine Specific Gravity 1.012 (1.010-1.030); Urine Urobilinogen Negative (Negative)
[2020-03-27 14:31] LABS: Urine Bacteria 3+ (Absent); Urine Red Blood Cell 2+(6-10/hpf) (Absent); Urine Transitional Epithelial Present (Absent); Urine White Blood Cell 3+(>20/hpf) (Absent)
[2020-03-27] MEDS ORDERED: Naloxone 0.4 mg VIAL 0.4 mg/ml 1 ml VIAL ONE (14:31)
[2020-03-27] MEDS ORDERED: fentaNYL 100 mcg/2 ml 50 MCG/ML VIAL ONE (14:31)
[2020-03-27] MEDS ORDERED: Flumazenil 0.5 mg/5 ml 0.1 MG/ML 5 ml VIAL ONE (14:31)
[2020-03-27] MEDS ORDERED: Midazolam 5 mg/5 ml VIAL 1 mg/ml 5 ml VIAL (5 mg) ONE (14:31)
[2020-03-28] MEDS: Albuterol HFA INHALER 8 gm MDI INH PRN ×2 (01:27→15:36)
[2020-03-28 06:31] LABS: BUN/Creatinine Ratio 19.2 (8-20); Calcium 8.3 mg/dL (8.6-10.3); EGFR African American 71.4 (>60); Magnesium 1.8 mg/dL (1.9-2.7)
[2020-03-28 06:39] LABS: Potassium 5.1 mmol/L (3.5-5.0)
[2020-03-28] MEDS: Mometasone/Formoter 200/5 MDI INH SCH ×2 (07:31→20:35)
[2020-03-28] MEDS: cefTRIAXone 1 gm/50 mL NS BAG 1 GM/50 ML BAG IVPB SCH (09:23)
[2020-03-28] MEDS: Gemfibrozil 600 mg PO SCH ×2 (09:44→21:06)
[2020-03-28] MEDS: Azithromycin 500 mg/250 ml NS 500 MG/250 ML BAG IVPB SCH (10:29)
[2020-03-28] MEDS ORDERED: Magnesium Sulfate IV 1GM/100ML 1 GM/100 ML BAG IV ONE (10:30)
[2020-03-28] MEDS: Heparin DRIP 25,000 UNITS BAG 25,000 UNITS/500 ML BAG IV SCH (11:05)
[2020-03-28] MEDS: Heparin 5000 UNITS/ML 1 mL VIAL IV SCH ×2 (11:08→18:01)
[2020-03-28] MEDS ORDERED: Furosemide 20 mg/2 ml IV VIAL IV ONE (19:00)
[2020-03-28] MEDS: Albuterol/Ipratropium NEB.SOL (2.5/0.5 MG) 3 ML NEB.SOLN INH PRN ×2 (20:39→23:36)
[2020-03-29] MEDS: Heparin 5000 UNITS/ML 1 mL VIAL IV SCH (00:24)
[2020-03-29] MEDS: Metoprolol Tartrate 5 mg VIAL 5 ml VIAL (1 mg/ml) IV PRN (04:03)
[2020-03-29 06:10] LABS: ABS Eosinophils 0.1 10^3/ul (0-0.6); ABS Lymphocytes 0.6 10^3/ul (1.0-4.8); ABS Monocytes 1.3 10^3/ul (0-0.8); ABS Neutrophils 7.6 10^3/ul (1.5-7.7); Hematocrit 30 % (42-52); Hemoglobin 10.1 g/dL (14.0-18.0); Lymphocyte % 6.5 %; Mean Corpuscular HGB Conc 34 g/dL (31-36); Mean Corpuscular Hemoglobin 26 pg (27-31); Mean Corpuscular Volume 77 fL (80-94); Mean Platelet Volume 8.8 fL (7.4-10.4); Nucleated Red Blood Cells % 0.1; Platelet Count 118 10^3/uL (150-450); Red Blood Count 3.87 10^6 /uL (4.18-5.48); Red Cell Distribution Width 18 % (10-15); White Blood Count 9.6 10^3/uL (3.5-10.8)
[2020-03-29] MEDS ORDERED: Albuterol HFA INHALER 8 gm MDI INH PRN (07:00)
[2020-03-29] MEDS: Albuterol HFA INHALER 8 gm MDI INH PRN (07:55)
[2020-03-29] MEDS: Mometasone/Formoter 200/5 MDI INH SCH ×2 (07:55→19:11)
[2020-03-29] MEDS: cefTRIAXone 1 gm/50 mL NS BAG 1 GM/50 ML BAG IVPB SCH (08:36)
[2020-03-29] MEDS: Gemfibrozil 600 mg PO SCH ×2 (08:36→20:32)
[2020-03-29] MEDS: Azithromycin 500 mg/250 ml NS 500 MG/250 ML BAG IVPB SCH (09:27)
[2020-03-29] MEDS: Heparin DRIP 25,000 UNITS BAG 25,000 UNITS/500 ML BAG IV SCH (09:27)
[2020-03-29 10:03] LABS: BUN/Creatinine Ratio 22.9 (8-20); Calcium 8.2 mg/dL (8.6-10.3); EGFR African American 92.4 (>60); EGFR Non-African American 76.4 (>60); Magnesium 1.6 mg/dL (1.9-2.7)
[2020-03-29] MEDS ORDERED: Magnesium Sulfate IV 3 GM in NS 0.9% 100 ml BAG 100 ML IVPB ONE (10:49)
[2020-03-29] MEDS: Albuterol/Ipratropium NEB.SOL (2.5/0.5 MG) 3 ML NEB.SOLN INH SCH ×2 (14:12→19:11)
[2020-03-29] MEDS: Albuterol/Ipratropium NEB.SOL (2.5/0.5 MG) 3 ML NEB.SOLN INH PRN ×2 (15:43→23:40)
[2020-03-30] MEDS: Metoprolol Tartrate 5 mg VIAL 5 ml VIAL (1 mg/ml) IV PRN (00:23)
[2020-03-30] MEDS: Albuterol/Ipratropium NEB.SOL (2.5/0.5 MG) 3 ML NEB.SOLN INH SCH ×4 (01:35→18:09)
[2020-03-30] MEDS: Albuterol/Ipratropium NEB.SOL (2.5/0.5 MG) 3 ML NEB.SOLN INH PRN ×3 (03:11→23:20)
[2020-03-30] MEDS: Heparin DRIP 25,000 UNITS BAG 25,000 UNITS/500 ML BAG IV SCH ×2 (03:45→20:29)
[2020-03-30 06:48] LABS: ABS Eosinophils 0.1 10^3/ul (0-0.6); ABS Lymphocytes 0.6 10^3/ul (1.0-4.8); ABS Monocytes 1.3 10^3/ul (0-0.8); ABS Neutrophils 8.6 10^3/ul (1.5-7.7); Eosinophil % 0.6 %; Hematocrit 30 % (42-52); Hemoglobin 9.9 g/dL (14.0-18.0); Lymphocyte % 5.7 %; Mean Corpuscular HGB Conc 33 g/dL (31-36); Mean Corpuscular Hemoglobin 26 pg (27-31); Mean Corpuscular Volume 77 fL (80-94); Mean Platelet Volume 9.6 fL (7.4-10.4); Platelet Count 134 10^3/uL (150-450); Red Blood Count 3.85 10^6 /uL (4.18-5.48); Red Cell Distribution Width 18 % (10-15); White Blood Count 10.6 10^3/uL (3.5-10.8)
[2020-03-30 07:02] LABS: BUN/Creatinine Ratio 21.1 (8-20); Calcium 8.4 mg/dL (8.6-10.3); EGFR African American 99.5 (>60); EGFR Non-African American 82.3 (>60); Magnesium 1.9 mg/dL (1.9-2.7); Potassium 4.9 mmol/L (3.5-5.0)
[2020-03-30] MEDS: Heparin 5000 UNITS/ML 1 mL VIAL IV SCH (07:21)
[2020-03-30] MEDS: Mometasone/Formoter 200/5 MDI INH SCH ×2 (07:36→20:20)
[2020-03-30] MEDS: cefTRIAXone 1 gm/50 mL NS BAG 1 GM/50 ML BAG IVPB SCH (09:06)
[2020-03-30] MEDS: Gemfibrozil 600 mg PO SCH ×2 (09:06→20:50)
[2020-03-31] MEDS: Metoprolol Tartrate 5 mg VIAL 5 ml VIAL (1 mg/ml) IV PRN (00:58)
[2020-03-31] MEDS: Albuterol/Ipratropium NEB.SOL (2.5/0.5 MG) 3 ML NEB.SOLN INH SCH ×2 (02:37→07:34)
[2020-03-31] MEDS: Albuterol/Ipratropium NEB.SOL (2.5/0.5 MG) 3 ML NEB.SOLN INH PRN ×3 (03:04→18:19)
[2020-03-31 06:52] LABS: ABS Eosinophils 0.1 10^3/ul (0-0.6); ABS Lymphocytes 0.7 10^3/ul (1.0-4.8); ABS Monocytes 1.2 10^3/ul (0-0.8); ABS Neutrophils 6.8 10^3/ul (1.5-7.7); Eosinophil % 1.2 %; Hematocrit 29 % (42-52); Hemoglobin 9.6 g/dL (14.0-18.0); Lymphocyte % 7.6 %; Mean Corpuscular HGB Conc 34 g/dL (31-36); Mean Corpuscular Hemoglobin 26 pg (27-31); Mean Corpuscular Volume 77 fL (80-94); Mean Platelet Volume 8.9 fL (7.4-10.4); Nucleated Red Blood Cells % 0.1; Platelet Count 131 10^3/uL (150-450); Red Blood Count 3.72 10^6 /uL (4.18-5.48); Red Cell Distribution Width 18 % (10-15); White Blood Count 8.8 10^3/uL (3.5-10.8)
[2020-03-31 07:02] LABS: Activated Partial Thrombo Time 63.4 seconds (26.0-38.0); INR 1.36 (0.82-1.09)
[2020-03-31 07:08] LABS: Calcium 8.5 mg/dL (8.6-10.3); EGFR Non-African American 94.2 (>60); Magnesium 1.6 mg/dL (1.9-2.7); Potassium 4.8 mmol/L (3.5-5.0)
[2020-03-31] MEDS: Mometasone/Formoter 200/5 MDI INH SCH ×3 (07:34→19:54)
[2020-03-31] MEDS: cefTRIAXone 1 gm/50 mL NS BAG 1 GM/50 ML BAG IVPB SCH (08:08)
[2020-03-31] MEDS: Gemfibrozil 600 mg PO SCH ×2 (08:08→19:30)
[2020-03-31] MEDS: Heparin DRIP 25,000 UNITS BAG 25,000 UNITS/500 ML BAG IV SCH (14:27)
[2020-03-31] MEDS: Albuterol HFA INHALER 8 gm MDI INH PRN ×2 (18:05→19:27)
[2020-04-01 05:59] LABS: ABS Eosinophils 0.1 10^3/ul (0-0.6); ABS Lymphocytes 0.9 10^3/ul (1.0-4.8); ABS Monocytes 1.1 10^3/ul (0-0.8); ABS Neutrophils 7.8 10^3/ul (1.5-7.7); Eosinophil % 1.1 %; Hematocrit 30 % (42-52); Mean Corpuscular HGB Conc 33 g/dL (31-36); Mean Corpuscular Hemoglobin 25 pg (27-31); Mean Corpuscular Volume 76 fL (80-94); Nucleated Red Blood Cells % 0.1; Platelet Count 183 10^3/uL (150-450); Red Blood Count 3.94 10^6 /uL (4.18-5.48); Red Cell Distribution Width 18 % (10-15); White Blood Count 9.9 10^3/uL (3.5-10.8)
[2020-04-01 06:25] LABS: Blood Urea Nitrogen 22 mg/dL (6-24); EGFR African American 119.2 (>60); EGFR Non-African American 98.5 (>60)
[2020-04-01] MEDS: Heparin DRIP 25,000 UNITS BAG 25,000 UNITS/500 ML BAG IV SCH ×2 (07:50→22:55)
[2020-04-01] MEDS: Mometasone/Formoter 200/5 MDI INH SCH ×2 (08:11→19:58)
[2020-04-01] MEDS: Albuterol/Ipratropium NEB.SOL (2.5/0.5 MG) 3 ML NEB.SOLN INH PRN (08:11)
[2020-04-01 08:26] LABS: Magnesium 1.4 mg/dL (1.9-2.7)
[2020-04-01] MEDS ORDERED: Magnesium Sulfate IV 3 GM in NS 0.9% 100 ml BAG 100 ML IVPB ONE (08:33)
[2020-04-01 08:53] LABS: Sodium 135 mmol/L (135-145)
[2020-04-01 08:54] LABS: Potassium 5.3 mmol/L (3.5-5.0)
[2020-04-01 09:27] LABS: Total Iron Binding Capacity 235 mcg/dL (250-450); Transferrin 168 mg/dL (203-362)
[2020-04-01 09:33] LABS: % Iron Saturation 9 % (15-55); Iron < 20 ug/dL (50-212); Unsaturated Iron Binding < 220 ug/dL
[2020-04-01 09:47] LABS: Ferritin 188.1 ng/mL (24-336)
[2020-04-01] MEDS: cefTRIAXone 1 gm/50 mL NS BAG 1 GM/50 ML BAG IVPB SCH (12:32)
[2020-04-01] MEDS: Gemfibrozil 600 mg PO SCH ×2 (12:55→20:18)
[2020-04-01] MEDS ORDERED: Flumazenil 0.5 mg/5 ml 0.1 MG/ML 5 ml VIAL ONE (13:04)
[2020-04-01] MEDS ORDERED: Midazolam 5 mg/5 ml VIAL 1 mg/ml 5 ml VIAL (5 mg) ONE (13:04)
[2020-04-01] MEDS ORDERED: fentaNYL 100 mcg/2 ml 50 MCG/ML VIAL ONE (13:04)
[2020-04-01] MEDS ORDERED: Naloxone 0.4 mg VIAL 0.4 mg/ml 1 ml VIAL ONE (13:04)
[2020-04-01] MEDS: Iron Sucrose 200 MG in NS 0.9% 100 ml BAG 100 ML IVPB SCH (16:43)
[2020-04-01] MEDS: Magnesium Chloride EC 64 mgTAB PO SCH (16:45)
[2020-04-01 16:52] LABS: C Reactive Protein 194.57 mg/L (<8.01); Magnesium 2.1 mg/dL (1.9-2.7)
[2020-04-01] MEDS: Albuterol HFA INHALER 8 gm MDI INH PRN (19:59)
[2020-04-02] MEDS ORDERED: Vancomycin 1,000 MG in NS 0.9% 250 ml 250 ML IVPB ONE (01:08)
[2020-04-02] MEDS ORDERED: Furosemide 40 mg/4 ml IV VIAL IV SLOW PU ONE ×2 (01:35→05:11)
[2020-04-02] MEDS ORDERED: Vancomycin per Pharmacy 1 EA NOTE FOLLOW UP SCH (02:00)
[2020-04-02] MEDS: Meropenem 1 GM PREMIX(*) 1 GM/50 ML BAG IV SCH ×2 (03:49→11:19)
[2020-04-02 06:00] LABS: Hematocrit 31 % (42-52); Hemoglobin 10.3 g/dL (14.0-18.0); Mean Corpuscular HGB Conc 33 g/dL (31-36); Mean Corpuscular Hemoglobin 25 pg (27-31); Mean Corpuscular Volume 77 fL (80-94); Mean Platelet Volume 8.4 fL (7.4-10.4); Platelet Count 226 10^3/uL (150-450); Red Blood Count 4.06 10^6 /uL (4.18-5.48); Red Cell Distribution Width 18 % (10-15); White Blood Count 9.3 10^3/uL (3.5-10.8)
[2020-04-02 07:19] LABS: ABS Eosinophils 0.2 10^3/ul (0-0.6); ABS Lymphocytes 0.9 10^3/ul (1.0-4.8); ABS Neutrophils 7.2 10^3/ul (1.5-7.7); Eosinophil % 1.8 %; Lymphocyte % 9.8 %; Nucleated Red Blood Cells % 0.1
[2020-04-02 08:05] LABS: Calcium 9.3 mg/dL (8.6-10.3); EGFR African American 100.8 (>60); EGFR Non-African American 83.3 (>60); Magnesium 1.7 mg/dL (1.9-2.7)
[2020-04-02] MEDS: Albuterol/Ipratropium NEB.SOL (2.5/0.5 MG) 3 ML NEB.SOLN INH PRN ×2 (08:05→17:42)
[2020-04-02] MEDS: Mometasone/Formoter 200/5 MDI INH SCH ×2 (08:05→19:41)
[2020-04-02 08:16] LABS: Potassium 5.5 mmol/L (3.5-5.0)
[2020-04-02] MEDS ORDERED: Magnesium Sulfate 2 gm BAG 2 GM/50 ML BAG IVPB ONE (08:40)
[2020-04-02] MEDS ORDERED: Vancomycin 750 MG in NS 0.9% 250 ml 250 ML IVPB SCH (10:00)
[2020-04-02] MEDS: Iron Sucrose 200 MG in NS 0.9% 100 ml BAG 100 ML IVPB SCH (10:04)
[2020-04-02] MEDS: Gemfibrozil 600 mg PO SCH ×2 (10:09→20:28)
[2020-04-02] MEDS: Patiromer POWDER 8.4 GM PAK PO SCH (11:11)
[2020-04-02] MEDS ORDERED: Metoprolol Tartrate 5 mg VIAL 5 ml VIAL (1 mg/ml) IV ONE (11:35)
[2020-04-02] MEDS: Magnesium Chloride EC 64 mgTAB PO SCH (12:34)
[2020-04-02] MEDS: cefTRIAXone 2 GM ADDV.VIAL 2 GM in NS 0.9% 100 ml BAG 100 ML IV SCH (12:41)
[2020-04-02] MEDS: Heparin DRIP 25,000 UNITS BAG 25,000 UNITS/500 ML BAG IV SCH (13:44)
[2020-04-02] MEDS: Vancomycin 1,000 MG in NS 0.9% 250 ml 250 ML IV SCH (14:09)
[2020-04-02 14:13] LABS: BUN/Creatinine Ratio 30.7 (8-20); Calcium 8.8 mg/dL (8.6-10.3); EGFR African American 102.2 (>60); EGFR Non-African American 84.4 (>60)
[2020-04-03] MEDS: Vancomycin 1,000 MG in NS 0.9% 250 ml 250 ML IV SCH ×2 (03:01→14:22)
[2020-04-03] MEDS: Heparin DRIP 25,000 UNITS BAG 25,000 UNITS/500 ML BAG IV SCH (05:12)
[2020-04-03] MEDS ORDERED: Metoprolol Tartrate 5 mg VIAL 5 ml VIAL (1 mg/ml) IV ONE ×2 (05:43→09:28)
[2020-04-03] MEDS ORDERED: Metoprolol Tartrate 5 mg VIAL 5 ml VIAL (1 mg/ml) ONE (06:00)
[2020-04-03] MEDS: Heparin 5000 UNITS/ML 1 mL VIAL IV SCH (06:46)
[2020-04-03 06:53] LABS: EGFR African American 83.3 (>60); EGFR Non-African American 68.9 (>60)
[2020-04-03] MEDS: Mometasone/Formoter 200/5 MDI INH SCH (07:46)
[2020-04-03 08:11] LABS: Calcium 8.9 mg/dL (8.6-10.3); Magnesium 1.8 mg/dL (1.9-2.7); Potassium 5.6 mmol/L (3.5-5.0)
[2020-04-03 08:22] LABS: BUN/Creatinine Ratio 27.6 (8-20)
[2020-04-03] MEDS ORDERED: Magnesium Sulfate 2 gm BAG 2 GM/50 ML BAG IVPB ONE (08:34)
[2020-04-03] MEDS: Gemfibrozil 600 mg PO SCH (08:51)
[2020-04-03] MEDS: Patiromer POWDER 8.4 GM PAK PO SCH (08:52)
[2020-04-03] MEDS ORDERED: Vancomycin Trough Check NOTE FOLLOW UP ONE (09:30)
[2020-04-03] MEDS ORDERED: Diltiazem IV push/loading dose 5 MG/ML 5 ML vial (25 mg) IV SLOW PU ONE ×2 (09:52→11:25)
[2020-04-03] MEDS ORDERED: Diltiazem IV BAG D5W Premix 125 MG/125 ML BAG IV SCH (10:00)
[2020-04-03] MEDS: cefTRIAXone 2 GM ADDV.VIAL 2 GM in NS 0.9% 100 ml BAG 100 ML IV SCH (10:36)
[2020-04-03] MEDS: Magnesium Chloride EC 64 mgTAB PO SCH (11:57)
[2020-04-03] MEDS: Albuterol/Ipratropium NEB.SOL (2.5/0.5 MG) 3 ML NEB.SOLN INH PRN (15:13)
[2020-04-03 16:32] VITALS: BP 101/76
[2020-04-04] MEDS ORDERED: Vancomycin Trough Check NOTE FOLLOW UP ONE (14:00)
== END 2020-04-03 16:00 | disposition short-term general hospital (02) | DRG 308 ==
LOC: ED 11:39 → MEDTELE 11:39
PROVIDERS: ADMIT Internal Medicine; ATTEND Internal Medicine